=== PATIENT | female | born 1945 | race Caucasian/White ===

== ENCOUNTER → 2019-10-28 13:03 | Outpatient (CLI) | payer OTHER, SELFPAY ==
--- NOTE | ~2019-10-28 | MM_ITS ---
EXAMINATION: MM screening [facility] BI w dorothy HISTORY: Screening mammogram TECHNIQUE: Craniocaudal and mediolateral oblique 3-D tomosynthesis images were obtained and synthetic 2-D images were generated. CAD analysis was submitted and interpreted. COMPARISON: 08/06/2018, 07/16/2017, 08/01/2015 BREAST PARENCHYMAL COMPOSITION: There are scattered areas of fibroglandular density. FINDINGS: Scattered benign-appearing calcifications are present. There is no evidence of suspicious m ass, calcification, or architectural distortion to suggest malignancy in either breast. There has bee n no suspicious interval change. IMPRESSION: 1. No mammographic evidence of malignancy. 2. Recommend routine screening mammography in one year. BI-RADS Category 2: Benign finding(s). Reviewed, dictated and finalized at location A.
== END ==
PROVIDERS: Visit Provider Nurse Practitioner
DX: Z12.31 Encounter for screening mammogram for malignant neoplasm of breast (principal)
CPT/HCPCS: 77063; 77067

== ENCOUNTER → 2020-12-17 13:36 | Outpatient (CLI) | payer OTHER, SELFPAY ==
--- NOTE | ~2020-12-17 | MM_ITS ---
EXAMINATION: MM screening [facility] BI w dorothy HISTORY: Screening TECHNIQUE: Craniocaudal and mediolateral oblique 3-D tomosynthesis images were obtained and synthetic 2-D images were generated. CAD analysis was submitted and interpreted. COMPARISON: Comparison to multiple prior studies sequentially, with oldest reviewed study dated 10/17. BREAST PARENCHYMAL COMPOSITION: There are scattered areas of fibroglandular density. FINDINGS: There is no evidence of suspicious mass, calcification, or architectural distortion to sugg est malignancy in either breast. There has been no suspicious interval change. IMPRESSION: 1. No mammographic evidence of malignancy. 2. Recommend routine screening mammography in one year. BI-RADS Category 1: Negative Reviewed, dictated and finalized at location A.
== END ==
PROVIDERS: PCP Family Medicine; Visit Provider Nurse Practitioner Family
DX: Z12.31 Encounter for screening mammogram for malignant neoplasm of breast (principal)
CPT/HCPCS: 77063; 77067

== ENCOUNTER → 2021-07-12 10:41 | Outpatient (CLI) | payer MEDICARE, SELFPAY ==
--- NOTE | ~2021-07-12 | US_ITS ---
EXAMINATION: US pelvic complete w TV DATE: 07/12/2021 11:32 INDICATION: Other specified noninflammatory disorders of the vagina, concern for prolapse TECHNIQUE: Multiple transabdominal and endovaginal sonographic images of the pelvis were obtained. COMPARISON: None. FINDINGS: The uterus measures 3.6 x 1.8 x 2.8 cm. The endometrial complex measures 3 mm. The ovaries are not visualized however no adnexal abnormality is seen. There is a small amount of free fluid in t he pelvis. The technologist infectious disease reports intermittent prolapse of the cervix through the vagina . IMPRESSION: 1. Small amount of free fluid in the pelvis. 2. Clinical evidence of prolapse reported by the technologist infectious disease. Reviewed, dictated and finalized at location A.
== END ==
PROVIDERS: PCP Nurse Practitioner Family; Visit Provider Nurse Practitioner Family
DX: N89.8 Other specified noninflammatory disorders of vagina (principal)
CPT/HCPCS: 76830; 76856

== ENCOUNTER 2021-09-23 00:57 | Day surgery (SDC) | payer MEDICARE, SELFPAY ==
[2021-09-09 13:35] VITALS: BMI 22.7
[2021-09-23 10:36] VITALS: BP 120/79; PULSE 68; RESP 18; TEMP 36.1; O2SAT 99
[2021-09-23] MEDS: LACTATED RINGERS 1,000 ML 150 ML IV CONT (10:49)
--- NOTE | 2021-09-23 10:57 | WPDANESEPPF ---
Anes - Initial Pre Proc Eval Procedure: Operation Date: 09/23/21 12:30 Proposed Procedures p Colonoscopy - Hasmukh Macdonald MD Date/Time: 09/23/21 10:57 Surgeon: Hasmukh Macdonald MD Pre Op Diagnosis: MICHELLE Patient Data Age: 76 Gender: F Height: 1.68 m Weight: 59.9 kg Last Vital Signs Temp 36.1 C L 09/23/21 10:36 Pulse 68 09/23/21 10:36 Resp 18 09/23/21 10:36 BP 120/79 09/23/21 10:36 Pulse Ox 99 09/23/21 10:36 O2 Del Method Room Air 09/23/21 10:36 Allergies Allergy/AdvReac Type Severity Reaction Status Date / Time bacitracin Allergy Unknown Unknown Verified 09/23/21 10:33 latex Allergy Unknown Unknown Verified 09/23/21 10:33 polymyxin B Allergy Unknown Unknown Verified 09/23/21 10:33 Home Medications Medication Instructions Recorded Confirmed Type warfarin 3 mg tablet 3 mg PO WEEKLY #90 tabs 08/09/21 09/13/21 Rx warfarin 4 mg tablet 4 mg PO .6XW #90 tabs 08/09/21 09/13/21 Rx cilostazol 100 mg tablet 100 mg PO .QD #90 tabs 08/19/21 09/13/21 Rx gabapentin 100 mg capsule 100 mg PO DAILY PRN nerve pain #90 08/19/21 09/13/21 Rx caps pravastatin 80 mg tablet 80 mg PO DAILY #90 tabs 08/19/21 09/13/21 Rx oxyquinoline 0.025 %-sodium lauryl See Rx Instructions vaginal 08/24/21 09/13/21 Rx sulfate 0.01 % vaginal gel .COMPLEX #113.4 grams (Trimo-Tinajero Jelly) alprazolam 0.25 mg tablet 0.25 mg PO BID PRN anxiety #40 tabs 08/29/21 09/13/21 Rx citalopram 20 mg tablet 20 mg PO DAILY #90 tabs 09/06/21 09/13/21 Rx peg 400-propylene glycol (PF) 0.4 1 drp EACH EYE DAILY PRN Dry Eye(S) 09/09/21 09/09/21 History %-0.3 % eye drops in a dropperette (Systane (PF)) trazodone 50 mg tablet 50 - 100 mg PO QHS PRN insomnia 09/20/21 Rx #180 tabs Patient hx anesthesia problems: none Family hx anesthesia problems: none Results Review: All pre-operative results and documents have been reviewed as part of the pre-operative evaluation. [facility] Past Medical History Medical History Depression GERD without esophagitis History of cervical cancer HTN (hypertension), benign HZV (herpes zoster virus) post herpetic neuralgia Long-term (current) use of anticoagulants, INR goal 2.0-3.0 Mixed hyperlipidemia Parkinsons disease Personal history of other venous thrombosis and embolism Surgical History Surgical History H/O colonoscopy (~06/07/15) hx of polyps, Dr Duarte H/O tubal ligation History of left lower extremity amputation History of left lower limb amputation (~1996) Hx of bilateral cataract extraction Hx of hernia repair S/P breast biopsy, bilateral S/P dilation and curettage S/P removal of left ovary S/P wrist surgery Family History Family History Sibling Family history of thyroid disease Family history of cataracts Family history of diabetes mellitus in first degree relative Diabetes mellitus Depression Grandparent Family history of malignant neoplasm of cervix Cerebrovascular accident Mother Family history of Hodgkin's lymphoma Patient's mother is , Onset Age: 74 Family history of lymphoma Depression Father Family history of cardiovascular disease Social History Social History Social History: . Lives in her own home in [place]. One son who will make medical decisions for her when needed. She wishes to be DNR. She is working on paperwork for [employer]. Smoking status: Never smoker Alcohol intake: never Substance use: never Substance use type: does not use Living arrangements: alone Spiritual care concerns: No Anes - Eval Final PreProcedure Day of Procedure 09/23/21 10:57 Patient weight: normal Heart: regular rate and rhythm Lungs: clear to auscultation Airway: Mallampati scale class 1 Neurological:
[2021-09-23 11:20] LABS: INR 1.2; Prothrombin Time 14.4 Seconds (11.1-14.7)
--- NOTE | 2021-09-23 11:29 | PM.IMHP ---
H&P: HPI History of Present Illness Date/Time: 09/23/21 11:29 Chief Complaint: History of colon polyps. Narrative: This is a 76-year-old white female patient referred because of anemia. She does have a history of colon polyps removed by Dr. Hasmukh Duarte iin 2009 at which time adenomatous colon polyp was removed. Patient has a history of chronic anemia. She remains on warfarin. His a history of chronic hematuria followed by Urology. Patient denies any obvious blood in her stools. Recent laboratory testing revealed iron saturation of 11% ferritin elevated at 106. Patient referred for colonoscopy for screening purposes. Family history is noncontributory. Review of Systems Review of Systems: Review of systems noncontributory. 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) Hx of bilateral cataract extraction Hx of hernia repair S/P breast biopsy, bilateral S/P dilation and curettage S/P removal of left ovary S/P wrist surgery Family History Family History Sibling Family history of thyroid disease Family history of cataracts Family history of diabetes mellitus in first degree relative Diabetes mellitus Depression Grandparent Family history of malignant neoplasm of cervix Cerebrovascular accident Mother Family history of Hodgkin's lymphoma Patient's mother is , Onset Age: 74 Family history of lymphoma Depression Father Family history of cardiovascular disease Social History Social History Social History: . Lives in her own home in [place]. One son who will make medical decisions for her when needed. She wishes to be DNR. She is working on paperwork for [employer]. Smoking status: Never smoker Alcohol intake: never Substance use: never Substance use type: does not use Living arrangements: alone Spiritual care concerns: No Meds Home Medications and Allergies Home Medications Medication Instructions Recorded Confirmed Type warfarin 3 mg tablet 3 mg PO WEEKLY #90 tabs 08/09/21 09/13/21 Rx warfarin 4 mg tablet 4 mg PO .6XW #90 tabs 08/09/21 09/13/21 Rx cilostazol 100 mg tablet 100 mg PO .QD #90 tabs 08/19/21 09/13/21 Rx gabapentin 100 mg capsule 100 mg PO DAILY PRN nerve pain #90 08/19/21 09/13/21 Rx caps pravastatin 80 mg tablet 80 mg PO DAILY #90 tabs 08/19/21 09/13/21 Rx oxyquinoline 0.025 %-sodium lauryl See Rx Instructions vaginal 08/24/21 09/13/21 Rx sulfate 0.01 % vaginal gel .COMPLEX #113.4 grams (Trimo-Tinajero Jelly) alprazolam 0.25 mg tablet 0.25 mg PO BID PRN anxiety #40 tabs 08/29/21 09/13/21 Rx citalopram 20 mg tablet 20 mg PO DAILY #90 tabs 09/06/21 09/13/21 Rx peg 400-propylene glycol (PF) 0.4 1 drp EACH EYE DAILY PRN Dry Eye(S) 09/09/21 09/09/21 History %-0.3 % eye drops in a dropperette (Systane (PF)) trazodone 50 mg tablet 50 - 100 mg PO QHS PRN insomnia 09/20/21 Rx #180 tabs Allergies Allergy/AdvReac Type Severity Reaction Status Date / Time bacitracin Allergy Unknown Unknown Verified 09/23/21 10:33 latex Allergy Unknown Unknown Verified 09/23/21 10:33 polymyxin B Allergy Unknown Unknown Verified 09/23/21 10:33 Vital Signs Vital Signs - 24 hr 09/23/21 10:36 Temperature 97.0 F L Pulse Rate 68 Respirator
[2021-09-23 11:58] VITALS: BP 97/52; PULSE 68; RESP 17; O2SAT 97
[2021-09-23 12:08] VITALS: BP 99/57; PULSE 68; RESP 16; O2SAT 100
[2021-09-23 12:18] VITALS: BP 123/61; PULSE 57; RESP 13; O2SAT 100
== END 2021-09-23 12:54 | disposition home or self-care (01) ==
PROVIDERS: PCP Internal Medicine Hematology & Oncology; Visit Provider Internal Medicine Gastroenterology
PROC: 0DJD8ZZ Inspection of Lower Intestinal Tract, Via Natural or Artificial Opening Endoscopic (ICD-10-PCS; CPT 45378; principal; 2021-09-23 12:30)
DX: D50.0 Iron deficiency anemia secondary to blood loss (chronic) (principal); K57.32 Diverticulitis of large intestine without perforation or abscess without bleeding; K64.8 Other hemorrhoids; D12.2 Benign neoplasm of ascending colon; F32.A Depression, unspecified; K21.9 Gastro-esophageal reflux disease without esophagitis; Z85.41 Personal history of malignant neoplasm of cervix uteri; I10 Essential (primary) hypertension; G20 Parkinson's disease; Z79.01 Long term (current) use of anticoagulants; B02.8 Zoster with other complications; Z86.718 Personal history of other venous thrombosis and embolism
CPT/HCPCS: 45385; 36415; 85610; 88305; J2704; J7120

== ENCOUNTER → 2021-09-26 14:18 | Outpatient (CLI) | payer MEDICARE, SELFPAY ==
--- NOTE | ~2021-09-26 | CT_ITS ---
EXAMINATION: CT soft tiss nk chst ab pel w DATE: 09/26/2021 15:17 INDICATION: Lymphadenopathy TECHNIQUE: Computed tomography (CT) of the neck, chest, abdomen, and pelvis was performed with 100 mL Omnipaque-300 intravenous contrast. Automated exposure control and iterative reconstruction techniqu e were employed. The dose-length product was 1233.23 mGy-cm. COMPARISON: CT abdomen and pelvis dated 08/17 FINDINGS: NECK CT: The nodular goiter with multiple hypoenhancing nodules measuring up to 1.3 cm in maximal diameter in both the left and right thyroid lobes. Submandibular and parotid glands are normal and symmetric. Ath erosclerotic plaque at the bilateral carotid bulbs with 40% stenosis relative to normal luminal diame ter (NASCET criteria) on the right and 0% stenosis on the left. There are scattered normal-sized lymp h nodes in the neck, no lymphadenopathy. No masses identified. Changes of bilateral intraocular lens replacement. Visualized sinuses and mastoid aircells are well aerated. Airway is unremarkable. Moder ate cervical spondylosis. CHEST CT: Minimal atelectasis in the dependent lungs. Calcified right middle lobe nodule consistent with old gr anulomatous disease. No other suspicious pulmonary nodules, pneumonia, pulmonary edema or pleural eff usion. Heart size is normal. Atherosclerotic coronary artery calcification. No pericardial effusion. Thoracic aorta is normal in caliber with no dissection. No pathologically enlarged thoracic lymphaden opathy. Small amount of intrathoracic ascites along side a moderate-sized sliding-type hiatal hernia. ABDOMEN/PELVIS CT: 7 mm cyst in the left hepatic lobe. Multiple scattered small hepatic and splenic calcific lesions con sistent with old granulomatous disease. New marked splenomegaly with spleen measuring 17.2 cm maximal craniocaudal length and 14.6 x 8.2 cm in maximal transaxial dimensions. There are 3 peripheral geogr aphic regions of markedly decreased/absent enhancement along the posterolateral margin of the spleen suspicious for splenic infarcts. Pancreas, bilateral adrenal glands and kidneys are normal. There is moderate colonic diverticulosis with a sigmoid predominance. There is no adjacent inflammatory méndez e to suggest diverticulitis. Small bowel and appendix are normal. Partially decompressed bladder is normal. Pessary within the vaginal vault. The uterus is not identified and has likely been surgically resected. Small amount of ascites predominantly in the deep pelvis. No pathologically enlarged abdom inal or pelvic lymphadenopathy. Patent aortobifemoral bypass graft. 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 This extends into the visualized proximal left superficial fem oral artery which is also thrombosed. The left profunda femoral artery reconstitutes via collaterals. IMPRESSION: 1. No pathologically enlarged lymphadenopathy in the neck, chest, abdomen or pelvis. 2. Marked splenomegaly which is new since prior study with 3 peripheral geographic regions of markedl y decreased, potentially absent enhancement suspicious for splenic infarcts. 3. Moderate-sized sliding-type hiatal hernia. 4. Aortobifemoral bypass graft. 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 The left profunda femoral artery is re constituted via collaterals. 5. Prominent sigmoid diverticulosis. 6. Small amount of ascites in the pelvis. 7. Multinodular goiter. Reviewed, dictated and finalized at location A. IMPRESS
[2021-09-26 14:45] LABS: Estimated Glomerular Filt Rate > 60
== END ==
PROVIDERS: PCP Nurse Practitioner Family; Visit Provider Internal Medicine Hematology & Oncology
DX: R59.1 Generalized enlarged lymph nodes (principal); E04.2 Nontoxic multinodular goiter; R18.8 Other ascites; K57.30 Diverticulosis of large intestine without perforation or abscess without bleeding; K44.9 Diaphragmatic hernia without obstruction or gangrene; R16.0 Hepatomegaly, not elsewhere classified
CPT/HCPCS: 70491; 71260; 74177; Q9967

== ENCOUNTER → 2021-10-07 13:10 | Outpatient (CLI) | payer MEDICARE, SELFPAY ==
--- NOTE | ~2021-10-07 | DEXA_ITS ---
Bone Density Report Name: ESTRELLA MONTANEZ Age: 76 Sex: Female Ethnicity: White Date of : 1945 Indication: postmenopausal; screening for osteoporosis; height loss; Referring Provider: Nadine Rojas Study: Bone densitometry was performed. Exam Date: October 07, 2021 Accession number: [id number] Bone Density: Region BMD T-score Z-score Classification AP Spine (L1, L3, L4) 1.219 1.5 4.0 Normal Femoral Neck (Left) 0.695 -1.4 0.8 Osteopenia Total Hip (Left) 0.878 -0.5 1.3 Normal Femoral Neck (Right) 0.743 -1.0 1.2 Normal Total Hip (Right) 0.925 -0.1 1.7 Normal Total Hip Mean 0.902 -0.3 1.5 Normal World Health Organization criteria for BMD impression classify patients as: Normal (T-score at or above -1.0), Osteopenia (T-score between -1.0 and -2.5), or Osteoporosis (T-score at or below -2.5). 10-year Fracture Risk(1): Major Osteoporotic Fracture 11% Hip Fracture 2.3% Reported Risk Factors: [place] (), Neck BMD=0.695, BMI=22.7 (1) FRAX(R) Version 3.08. Fracture probability calculated for an untreated patient. Fracture probability may be lower if the patient has received treatment. Previous Exams: Region Exam Age BMD T-score BMD Change BMD Change Date g/cm2 vs Baseline vs Previous AP Spine(L1, L3, L4) 10/07/2021 76 1.219 1.5 -0.027* -0.045* 12/24/2018 73 1.264 1.9 0.017 -0.018 12/02/2015 70 1.282 2.1 0.035* 0.024* 09/14/2012 67 1.258 1.9 0.011 0.011 07/30/2010 65 1.247 1.8 Total Hip(Left) 10/07/2021 76 0.878 -0.5 0.036* -0.011 12/24/2018 73 0.889 -0.4 0.048* -0.004 12/02/2015 70 0.893 -0.4 0.052* 0.004 09/14/2012 67 0.890 -0.4 0.048* 0.048* 07/30/2010 65 0.842 -0.8 Total Hip(Right) 10/07/2021 76 0.925 -0.1 -0.016 -0.016 12/24/2018 73 0.942 0.0 0.001 -0.039* 12/02/2015 70 0.981 0.3 0.040* 0.018 09/14/2012 67 0.963 0.2 0.022 0.022 07/30/2010 65 0.941 0.0 *Denotes significance at 95% confidence level, LSC for AP Spine = 0.022 g/cm2, LSC for Total Hip = 0.027 g/cm2 Clinical Information Provided by Patient: Has used the following medications: Vitamin D Patient maximum height was 66.0 Menopause Age: 40 No regular weight bearing exercise Drinks caffeinated beverages Onset of menses a
== END ==
PROVIDERS: PCP Nurse Practitioner Family; Visit Provider Nurse Practitioner Family
DX: Z78.0 Asymptomatic menopausal state (principal); M85.852 Other specified disorders of bone density and structure, left thigh
CPT/HCPCS: 77080

== ENCOUNTER 2021-10-25 01:23 | Day surgery (SDC) | payer MEDICARE, SELFPAY ==
[2021-10-24 13:42] VITALS: BMI 22.0
--- NOTE | ~2021-10-25 | BM_ITS ---
EXAMINATION: CCL bone marrow asp w bx diag DATE: 10/25/2021 10:22 INDICATION: Pancytopenia. TECHNIQUE: A time-out was performed to verify the patient's name, date of , and procedure to b e performed. The procedure including the risks, benefits, and alternatives was discussed with the pat ient. Risks discussed included bleeding and infection. The patient understood the risks and agreed to proceed. The skin overlying the left ilium was prepped and draped in usual sterile fashion. Anesth etic was administered with 1% lidocaine subcutaneously. Moderate sedation was achieved with 1 mg Vers ed IV and 50 mcg fentanyl IV. An 11 gauge needle was inserted into the ilium with fluoroscopic arnoldo nce. Bone marrow was aspirated. An 8 gauge needle was then inserted into the ilium with fluoroscopic guidance. A core bone marrow biopsy was obtained. There were no immediate complications. Fluoroscopy exposure time was 0.0 minutes. The total number of images was 12. FINDINGS: Real-time fluoroscopy demonstrates a marker overlying the left posterior superior iliac spi ne. IMPRESSION: 1. Fluoro-guided bone marrow aspiration. 2. Fluoro-guided bone marrow core biopsy. Reviewed, dictated and finalized at location A.
[2021-10-25 08:09] VITALS: BP 150/82; PULSE 68; RESP 18; TEMP 36.4; O2SAT 99; BMI 21.0
[2021-10-25 08:16] LABS: Basophils Percent Auto 0.7 % (0.2-1.2); Eosinophils Absolute Auto 0.1 K/mm3 (0-0.3); Eosinophils Percent Auto 2.6 % (0-4.4); Hematocrit 35.3 % (37.0-47.0); Hemoglobin 11.5 g/dL (12.0-15.0); Immature Granulocyte Absolute 0.01 K/mm3 (0.00-0.031); Immature Granulocyte Percent A 0.4 % (0-0.5); Immature Platelet Fraction Pct 1.6 % (0.9-11.2); Lymphocytes Absolute Auto 0.72 K/mm3 (0.9-3.2); Lymphocytes Percent Auto 26.6 % (18.3-44.2); Mean Corpuscular HGB Conc 32.6 g/dl (32-36); Mean Corpuscular Hemoglobin 32.1 pg (26-34); Mean Corpuscular Volume 98.6 fl (80-100); Monocytes Absolute Auto 0.2 K/mm3 (0.1-0.6); Monocytes Percent Auto 8.5 % (2.6-8.5); Neutrophils Absolute Auto 1.7 K/mm3 (1.3-6.7); Neutrophils Percent Auto 61.2 % (45.5-73.1); Platelet Count Result 88 k/mm3 (150-375); Red Blood Count 3.58 M/mm3 (4.2-5.4); Red Cell Distribution Width 15.8 % (11.5-14.5); White Blood Count 2.7 K/mm3 (4.5-10.0)
[2021-10-25 08:25] LABS: INR 1.1
--- NOTE | 2021-10-25 09:03 | WPDMODSED ---
Moderate Sedation Note-Pt Data Patient Data Diagnosis: pancytopenia Present Complaint: pancytopenia Procedure to be performed/Plan: fluoro-guided bone marrow biopsy of ilium Allergies Allergy/AdvReac Type Severity Reaction Status Date / Time latex Allergy Unknown Unknown Verified 10/25/21 08:49 Home Medications Medication Instructions Recorded Confirmed Type gabapentin 100 mg capsule 100 mg PO DAILY PRN nerve pain #90 08/19/21 10/24/21 Rx caps citalopram 20 mg tablet 20 mg PO DAILY #90 tabs 09/06/21 10/24/21 Rx trazodone 50 mg tablet 50 - 100 mg PO QHS PRN insomnia 09/20/21 10/24/21 Rx #180 tabs cilostazol 100 mg tablet 100 mg PO .QD #90 tabs 10/03/21 10/24/21 Rx pravastatin 80 mg tablet 80 mg PO DAILY #90 tabs 10/03/21 10/24/21 Rx alprazolam 0.25 mg tablet 0.25 mg PO BID PRN anxiety #40 tabs 10/04/21 10/24/21 Rx cholecalciferol (vitamin D3) 50 50 mcg PO DAILY #1 cap 10/11/21 10/24/21 Rx mcg (2,000 unit) capsule warfarin 5 mg tablet 5 mg PO DAILY #5 tabs 10/14/21 10/24/21 Rx ferrous gluconate 324 mg (36 mg 324 mg PO DAILY 10/24/21 10/24/21 History iron) tablet peg 400-propylene glycol 0.4 %-0.3 1 drp EACH EYE DAILY PRN Dry Eyes 10/24/21 10/24/21 History % eye drops (Systane (propylene glycol)) Sedation/Anesthesia: No previous sedation/anesthesia problems (including family history). [facility] Past Medical History Medical History Depression GERD without esophagitis History of cervical cancer HTN (hypertension), benign HZV (herpes zoster virus) post herpetic neuralgia Long-term (current) use of anticoagulants, INR goal 2.0-3.0 Mixed hyperlipidemia Parkinsons disease Personal history of other venous thrombosis and embolism Surgical History Surgical History H/O colonoscopy (~06/07/15) hx of polyps, Dr Duarte H/O tubal ligation History of left lower extremity amputation History of left lower limb amputation (~1996) Hx of bilateral cataract extraction Hx of hernia repair S/P breast biopsy, bilateral S/P dilation and curettage S/P removal of left ovary S/P wrist surgery Family History Family History Sibling Family history of thyroid disease Family history of cataracts Family history of diabetes mellitus in first degree relative Diabetes mellitus Depression Grandparent Family history of malignant neoplasm of cervix Cerebrovascular accident Mother Family history of Hodgkin's lymphoma Patient's mother is , Onset Age: 74 Family history of lymphoma Depression Father Family history of cardiovascular disease Social History Social History Social History: . Lives in her own home in [place]. One son who will make medical decisions for her when needed. She wishes to be DNR. She is working on paperwork for [employer]. Smoking status: Never smoker Alcohol intake: never Substance use: never Substance use type: does not use Spiritual care concerns: No Mod Sed Physical Exam Physical Exam Pre Procedural Exam: Normal: Lungs, Heart Rate, Heart Rhythm and Abdomen Hours since solid foods: 12 Hours since liquid intake: 12 Mallampati Classification: class 1 Internal Medicine - PN: Obj Da Vital Signs Vital Signs: Vital Signs - 24 hr 10/25/21 08:09 Temperature 36.4 C Pulse Rate 68 Respiratory Rate 18 Blood Pressure 150/82 H Pulse Oximetry 99 Oxygen Delivery Room Air Labs CBC & Chem 7: 10/25/21 08:03 Labs: Laboratory Results - last 24 hr 10/25/21 10/25/21 08:03 08:03 WBC 2.7 L RBC 3.58 L Hgb 11.5 L Hct 35.3 L MCV 98.6 MCH 32.1 MCHC 32.6 RDW 15.8 H Plt Count 88 L MPV 9.0 Immature Gran % (Auto) 0.4 Neut % (Auto) 61.2 Lymph % (Auto) 26.6 [place] % (Auto) 8.5 Eos % (Auto)
[2021-10-25 10:05] VITALS: BP 140/58; PULSE 59; RESP 18; TEMP 36.8; O2SAT 99
[2021-10-25 10:20] VITALS: BP 119/77; PULSE 52; RESP 16; O2SAT 100
[2021-10-25 10:35] VITALS: BP 127/57; PULSE 56; RESP 16; O2SAT 100
[2021-10-25 10:50] VITALS: BP 129/54; PULSE 56; RESP 16; O2SAT 100
[2021-10-25 11:15] VITALS: BP 136/61; PULSE 61; RESP 16; O2SAT 100
== END 2021-10-25 11:45 | disposition home or self-care (01) ==
PROVIDERS: PCP Nurse Practitioner Family; Referring Provider Internal Medicine Hematology & Oncology; Visit Provider Radiology Diagnostic Radiology
DX: D61.818 Other pancytopenia (principal)
CPT/HCPCS: 36415; 38222; 85025; 85055; 85610; 88184; 88185; 88305; 88311; 88313; 88341; 88342; 88360; J1642; J2250; J3010; J7040

== ENCOUNTER 2022-01-12 12:09 | Outpatient (CLI) | payer MEDICARE, SELFPAY ==
--- NOTE | ~2022-01-12 | PE_ITS ---
EXAMINATION: PET skull to mid thigh DATE: 01/12/2022 14:42 INDICATION: Non-Hodgkin's lymphoma of spleen. TECHNIQUE: Blood glucose level was 95 mg/dL. 10.149 mCi of 18-fluorodeoxyglucose (18-FDG) was adminis tered i.v. Low dose computed tomography (CT) images were acquired from the base of the brain to the p roximal thighs for attenuation correction and anatomic localization. Automated exposure control was e mployed. Dose-length product (DLP) was 396 mGy-cm. Positron emission tomography (PET) images were acq uired in the same distribution. COMPARISON: CT 09/26/2021 FINDINGS: Head/neck: There is increased activity in the pharynx, oral cavity, major salivary glands, and glotti s without abnormal signal CT correlate, likely physiologic. There are no pathologically enlarged lymp h nodes. Chest: There are nodules in the thyroid measuring up to 14 mm, likely not clinically significant. The re is mild scarring at the lung apices. A calcified right lung nodule is consistent with old granulom atous disease. No pleural effusion. The heart size is normal. No pericardial effusion. There are garrett nary artery calcifications. There is a moderate-sized sliding hiatal hernia. There is increased activ ity in the esophagus, which may be esophagitis. There is increased activity in bone marrow without ab normal CT correlate, likely bone marrow stimulation. Abdomen/pelvis/proximal thighs: Calcifications in the liver and spleen are consistent with old granul omatous disease. There is splenomegaly measuring 15.1 cm, decreased from 16.8 cm on 09/26/21. Activity in the spleen is equal to that of liver with maximum SUV of 3.5. The gallbladder, pancreas, adrenal glands, and kidneys are normal. There are changes of aortobifemoral bypass grafting. There is a stabl e 2.7 cm aneurysm at the left common femoral artery anastomosis. A pessary is noted. There is diverti culosis of the colon without evidence of diverticulitis. The appendix is normal. There are no patholo gically enlarged lymph nodes. There is no free intraperitoneal fluid. There is increased activity in bone marrow without abnormal CT correlate, likely bone marrow stimulation. IMPRESSION: 1. Moderate splenomegaly with mild improvement. 2. No lymphadenopathy. Reviewed, dictated and finalized at location A. TING CLERK
[2022-01-12 12:37] LABS: Glucose Point of Care 95 mg/dl (65-105)
== END 2022-01-12 12:10 | disposition home or self-care (01) ==
LOC: ANHIMG 12:11
PROVIDERS: PCP Nurse Practitioner Family; Visit Provider Internal Medicine Hematology & Oncology
DX: C85.97 Non-Hodgkin lymphoma, unspecified, spleen (principal)
CPT/HCPCS: 78815; A9552

== ENCOUNTER 2022-05-16 10:46 | Outpatient (CLI) | payer MEDICARE, SELFPAY ==
[2022-05-16 19:26] LABS: Alanine Aminotransferase 21 U/L (6-35); Albumin Level 3.9 g/dL (3.5-5.1); Alkaline Phosphatase 64 U/L (38-126); Anion Gap 1 mmol/L (8-16); Aspartate Amino Transferase 42 U/L (14-36); Bilirubin,Total 0.6 mg/dL (0.2-1.3); Blood Urea Nitrogen 22 mg/dL (7-17); Calcium 9.1 mg/dL (8.4-10.2); Carbon Dioxide 31 mmol/L (22-30); Chloride 103 mmol/L (98-107); Cholesterol 160 mg/dL (0-200); Estimated Glomerular Filt Rate > 60; Glucose 102 mg/dL (65-110); HDL Direct 68 mg/dL; Sodium 135 mmol/L (137-145); Triglycerides 69 mg/dL (<150)
[2022-05-16 19:27] LABS: Basophils Percent Auto 0.3 % (0.2-1.2); Eosinophils Absolute Auto 0.1 K/mm3 (0-0.3); Eosinophils Percent Auto 1.8 % (0-4.4); Hemoglobin 12.4 g/dL (12.0-15.0); Immature Granulocyte Absolute 0.01 K/mm3 (0.00-0.031); Immature Granulocyte Percent A 0.3 % (0-0.5); Immature Platelet Fraction Pct 1.7 % (0.9-11.2); Lymphocytes Absolute Auto 1.16 K/mm3 (0.9-3.2); Lymphocytes Percent Auto 30.1 % (18.3-44.2); Mean Corpuscular HGB Conc 32.6 g/dl (32-36); Mean Corpuscular Volume 101.1 fl (80-100); Mean Platelet Volume 9.1 fl (7.4-10.4); Monocytes Absolute Auto 0.4 K/mm3 (0.1-0.6); Monocytes Percent Auto 9.3 % (2.6-8.5); Neutrophils Absolute Auto 2.3 K/mm3 (1.3-6.7); Neutrophils Percent Auto 58.2 % (45.5-73.1); Platelet Count Result 111 k/mm3 (150-375); Red Blood Count 3.76 M/mm3 (4.2-5.4); Red Cell Distribution Width 14.6 % (11.5-14.5); White Blood Count 3.9 K/mm3 (4.5-10.0)
[2022-05-16 19:38] LABS: LDL Cholesterol Direct 62 mg/dL
[2022-05-16 20:24] LABS: Vitamin D 25 Hydroxy 89.9 ng/mL
== END 2022-05-16 10:47 | disposition home or self-care (01) ==
LOC: ANHGOSHLAB 10:47
PROVIDERS: PCP Nurse Practitioner Family; Visit Provider Nurse Practitioner Family
DX: E55.9 Vitamin D deficiency, unspecified (principal); E78.2 Mixed hyperlipidemia
CPT/HCPCS: 36415; 80053; 80061; 82306; 84443; 85025; 85055

== ENCOUNTER → 2022-08-16 10:04 | Outpatient (CLI) | payer MEDICARE, SELFPAY ==
--- NOTE | ~2022-08-16 | US_ITS ---
EXAMINATION: US pelvic complete DATE: 08/17/2022 12:01 INDICATION: Incomplete uterovaginal prolapse Comparison:No prior studies for comparison. TECHNIQUE: Multiple transabdominal sonographic images of the pelvis performed. FINDINGS: The uterus measures 5.8 x 2.7 x 3.4 cm. The endometrial complex measures 6 mm. The ovaries are not visualized. Left ovary is surgically absent. There is no free fluid in the pelvis. There are no abnormal masses seen on either side. IMPRESSION: 1. Thickened endomtrial complex. The differential diagnosis includes endometrial hyperplasia, polyp a nd carcinoma. Biopsy is recommended. Reviewed, dictated and finalized at location L. IMPRESSION: 1. Thickened endomtrial complex. The differential diagnosis includes endometria l hyperplasia, polyp and carcinoma. Biopsy is recommended.
== END ==
PROVIDERS: PCP Nurse Practitioner Family; Visit Provider Nurse Practitioner Family
DX: N81.2 Incomplete uterovaginal prolapse (principal)
CPT/HCPCS: 76856

== ENCOUNTER → 2022-08-18 13:21 | Outpatient (CLI) | payer MEDICARE, SELFPAY ==
--- NOTE | ~2022-08-18 | MM_ITS ---
EXAMINATION: MM screening oleksandr BI w dorothy HISTORY: Screening mammogram TECHNIQUE: Craniocaudal and mediolateral oblique 3-D tomosynthesis images were obtained and synthetic 2-D images were generated. CAD analysis was submitted and interpreted. COMPARISON: 12/17/2020, 10/28/2019, 08/2018 bilateral screening mammogram examinations BREAST PARENCHYMAL COMPOSITION: There are scattered areas of fibroglandular density. FINDINGS: Biopsy marker is noted on the right; history of benign right breast biopsies.. Scattered bi lateral benign calcifications. There is no evidence of suspicious mass, calcification, or architectur al distortion to suggest malignancy in either breast. There has been no suspicious interval change. IMPRESSION: 1. No mammographic evidence of malignancy. 2. Recommend routine screening mammography in one year. BI-RADS Category 2: Benign finding(s). Reviewed, dictated and finalized at location A.
== END ==
PROVIDERS: PCP Family Medicine; Visit Provider Nurse Practitioner Family
DX: Z12.31 Encounter for screening mammogram for malignant neoplasm of breast (principal)
CPT/HCPCS: 77063; 77067

== ENCOUNTER 2022-12-08 09:53 | Outpatient (CLI) | payer MEDICARE, SELFPAY ==
--- NOTE | 2022-12-08 11:12 | ECG_ITS ---
Measurements Intervals [place] Rate: 69 P: 73 DC: 124 QRS: 26 QRSD: 90 T: 21 QT: 400 QTc: 429 Interpretive Statements SINUS RHYTHM LOW QRS VOLTAGE IN PRECORDIAL LEADS [QRS DEFLECTION < 1.0 mV IN CHEST LEADS] POSSIBLE RIGHT VENTRICULAR CONDUCTION DELAY [RSR (QR) IN V1/V2] NO PREVIOUS ECG AVAILABLE FOR COMPARISON Electronically Signed On 12-08-2022 14:30:45 CDT by Miranda Lobo M.D.
[2022-12-08 11:35] LABS: Basophils Percent Auto 0.6 % (0.2-1.2); Eosinophils Percent Auto 0.8 % (0-4.4); Hematocrit 32.4 % (37.0-47.0); Hemoglobin 10.2 g/dL (12.0-15.0); Immature Granulocyte Absolute 0.01 K/mm3 (0.00-0.031); Immature Granulocyte Percent A 0.3 % (0-0.5); Immature Platelet Fraction Pct 1.9 % (0.9-11.2); Lymphocytes Absolute Auto 0.96 K/mm3 (0.9-3.2); Lymphocytes Percent Auto 26.6 % (18.3-44.2); Mean Corpuscular HGB Conc 31.5 g/dl (32-36); Mean Corpuscular Hemoglobin 30.7 pg (26-34); Mean Corpuscular Volume 97.6 fl (80-100); Mean Platelet Volume 9.2 fl (7.4-10.4); Monocytes Absolute Auto 0.3 K/mm3 (0.1-0.6); Monocytes Percent Auto 9.1 % (2.6-8.5); Neutrophils Absolute Auto 2.3 K/mm3 (1.3-6.7); Neutrophils Percent Auto 62.6 % (45.5-73.1); Platelet Count Result 82 k/mm3 (150-375); Red Blood Count 3.32 M/mm3 (4.2-5.4); Red Cell Distribution Width 15.9 % (11.5-14.5); White Blood Count 3.6 K/mm3 (4.5-10.0)
[2022-12-08 12:01] LABS: INR 1.2; Prothrombin Time 15.4 Seconds (11.1-14.7)
== END 2022-12-08 09:54 | disposition home or self-care (01) ==
LOC: ANHSURGERY 09:57
PROVIDERS: PCP Family Medicine; Visit Provider Urology
DX: N81.2 Incomplete uterovaginal prolapse (principal); E78.2 Mixed hyperlipidemia; Z01.818 Encounter for other preprocedural examination; I45.9 Conduction disorder, unspecified
CPT/HCPCS: 36415; 85025; 85055; 85610; 85730; 86850; 86900; 86901; 93005

== ENCOUNTER 2022-12-11 01:09 | Day surgery (SDC) | payer MEDICARE, SELFPAY ==
[2022-12-08 10:06] VITALS: BMI 27.1
--- NOTE | 2022-12-08 10:44 | PC.NURSE ---
Report to the Outpatient Waiting Room, entrance under the green pavilion located off [facility], at time _1030 on date 12/11/22 . Planned Procedure Time: __1230 . Time changes happen often and if your time is changed the preop area will call you the afternoon before. - You and your visitor will be asked to self-screen and do not enter if you have any COVID symptoms. - A mask is optional within the hospital at this time. Patients may have clear liquids (water, carbonated beverages, clear teas, apple juice) until 3 hours prior to surgery with a maximum of 20 ounces. - No food from midnight until time of surgery - Infants may have breast milk until 4 hours before surgery, infant formula 6 hours prior to surgery. - Children will be allowed to drink immediately following surgery. If applicable, please bring a bottle or sippy cup to assist with drinking. Juice, water, soda, and popsicles are readily available. For infants on formula, please bring formula the day of surgery. Pacifiers are allowed. Take the following medications with a SIP of water the morning of surgery: _BUSPIRONE,CITALOPRAM,GABAPENTIN,NITROFURANTOIN DO NOT STOP ANY OF YOUR OTHER PRESCRIPTION MEDICATIONS PRIOR TO SURGERY ?EXCEPT THE FOLLOWING Medications to discontinue per physician PT STATES WARFARIN HOLD 7 DAYS PRE OP PER DR RUEDA .LAST DOSE 12/03/22. ALL VITAMINS AND SUPPLEMENTS 3 DAYS PRE OP.LAST DOSE 12/07/22 Please no make-up, nail tanzanian, hairspray, perfume, deodorant, or body powder the day of surgery. No jewelry (including any body piercings) or valuables the day of surgery, leave them at home. Please take a shower or bath the night before, or the morning of, surgery with an antibacterial soap. Wear comfortable, loose fitting clothing. Children are encouraged to wear pajamas. - Jewelry must be removed prior to entering the operating room. Rings and piercings that are not removed may be cut off. - The hospital will not accept responsibility for valuables. - Please leave all valuables, including medications, at home the day of surgery. If you are going home after surgery, a licensed drop hammer pile driver operator must drive you home. - NO public transportation without another adult if you receive anesthesia. - We recommend that an adult stay with you for 24 hours following discharge. - We also recommend that you do not drive, make important decision, drink alcoholic beverages, or take any drugs that were not prescribed by your health care provider for at least 24 hours after your discharge time. For Pediatric surgeries, we recommend two adults accompany the child home. Follow any additional instructions given to you from your surgeon. If you or anyone in your household have experienced Covid symptoms in the past week, please notify your surgeon or the nurse liaison at the phone number below for possible testing. VERBAL AND WRITTEN instructions given to __PATIENT and asked if any additional questions and then verbalized understanding. Patient advised to call surgeon office or pre surgery nurse liaison [phone] if any additional questions.
[2022-12-08 11:04] VITALS: BP 125/60; PULSE 71; RESP 18; TEMP 36.7; O2SAT 97
--- NOTE | 2022-12-10 18:58 | PM.IMHP ---
H&P: HPI History of Present Illness Date/Time: 12/10/22 18:58 Chief Complaint: POP/ISD Narrative: POP. no longer interested in pessary. LEENA noted on urodynamcs Review of Systems Review of Systems: All systems reviewed & are unremarkable except as noted in HPI and below PMFSH Past Medical History Medical History Depression GERD without esophagitis History of cervical cancer HTN (hypertension), benign HZV (herpes zoster virus) post herpetic neuralgia Long-term (current) use of anticoagulants, INR goal 2.0-3.0 Mixed hyperlipidemia Parkinsons disease Personal history of other venous thrombosis and embolism Surgical History Surgical History H/O colonoscopy (~06/07/15) hx of polyps, Dr Duarte H/O tubal ligation History of left lower extremity amputation History of left lower limb amputation (~1996) Hx of bilateral cataract extraction Hx of hernia repair S/P breast biopsy, bilateral S/P dilation and curettage S/P removal of left ovary S/P wrist surgery Family History Family History Sibling Family history of thyroid disease Family history of cataracts Family history of diabetes mellitus in first degree relative Diabetes mellitus Depression Grandparent Family history of malignant neoplasm of cervix Cerebrovascular accident Mother Family history of Hodgkin's lymphoma Patient's mother is , Onset Age: 74 Family history of lymphoma Depression Father Family history of cardiovascular disease Social History Social History Social History: . Lives in her own home in [place]. One son who will make medical decisions for her when needed. She wishes to be DNR. She is working on paperwork for [employer]. Smoking packs per day: 0.5 Smoking cigarettes per day: 10.0 Years smoked: 10 Smoking pack-years: 5.00 Smoking status: Former smoker Tobacco type: cigarettes Smoking end date: 03/05/97 Alcohol intake: never Substance use: never Substance use type: does not use Lack of Transportation: No Lack of Food: Never True Current Housing: I Have Housing Concerned About Future Housing: No Difficulty Paying Gas/Electric Bills: YES Difficulty Paying for Meds: No Currently Unemployed: No Education: Trade/Vocational Certificate Difficulty w/ Childcare or Family Care: No Living arrangements: alone Occupation/Education: retired Gender identity (if verbalized by the patient): Female Sexual Orientation (if Verbalized by the Patient): Straight or Heterosexual Spiritual care concerns: No Meds Home Medications and Allergies Home Medications Medication Instructions Recorded Confirmed Type cholecalciferol (vitamin D3) 50 50 mcg PO DAILY #1 cap 10/11/21 12/08/22 Rx mcg (2,000 unit) capsule ferrous gluconate 324 mg (36 mg 324 mg PO DAILY 10/24/21 12/08/22 History iron) tablet buspirone 5 mg tablet See Rx Instructions PO BID PRN 08/21/22 12/08/22 Rx anxiety #180 tabs trazodone 50 mg tablet 50 - 100 mg PO QHS PRN insomnia 08/21/22 12/08/22 Rx #180 tabs citalopram 20 mg tablet 20 mg PO DAILY #90 tabs 11/13/22 12/08/22 Rx pravastatin 80 mg tablet 80 mg PO DAILY #90 tabs 11/28/22 12/08/22 Rx cilostazol 100 mg tablet 100 mg PO DAILY 12/08/22 12/08/22 History cyanocobalamin (vitamin B-12) 1,000 mcg PO EVERY OTHER DAY 12/08/22 12/08/22 History 1,000 mcg tablet gabapentin 100 mg capsule 100 mg PO TID PRN nerve pain 12/08/22 12/08/22 History nitrofurantoin 100 mg PO BID 12/08/22 12/08/22 History monohydrate/macrocrystals 100 mg capsule peg 400-propylene glycol (PF) 0.4 1 drp EACH EYE BID DRY EYES 12/08/22 12/08/22 History %-0.3 % eye drops in a dropperette (Systane (PF)) warfarin 1 mg tablet 6 mg PO .every other day
[2022-12-11] VITALS (9 sets, daily range): BP systolic 122–147; BP diastolic 44–79; PULSE 61–79; RESP 12–20; TEMP 36.4–36.6; O2SAT 95–100
--- NOTE | 2022-12-11 07:16 | WPDHPUPDATE1 ---
History and Physical Update Update Date/Time: 12/11/22 07:16 History and Physical has been reviewed, including an updated exam of the patient. There are NO changes in the patient's condition. Risks, benefits, and alternatives have been discussed and questions answered. Patient agrees to proceed with procedure.
[2022-12-11] MEDS: LACTATED RINGERS 1,000 ML 30 ML IV CONT ×2 (10:30→13:04)
--- NOTE | 2022-12-11 10:34 | WPDHPUPDATE1 ---
History and Physical Update Update Date/Time: 12/11/22 10:34 History and Physical has been reviewed, including an updated exam of the patient. There are NO changes in the patient's condition. Risks, benefits, and alternatives have been discussed and questions answered. Patient agrees to proceed with procedure. plan today is to repair the pelvic organ prolapse and perform a bulking agent
--- NOTE | 2022-12-11 10:43 | WPDANESEPPF ---
Anes - Initial Pre Proc Eval Procedure: Operation Date: 12/11/22 12:30 Proposed Procedures p Colpocleisis, - Colby Jackson MD s Cystoscopy, Injection Bulking Agent - Colby Jackson MD Date/Time: 12/11/22 10:43 Surgeon: Colby Jackson MD Pre Op Diagnosis: stress incont, incomp uterovag prolapse Patient Data Age: 77 Gender: F Height: 1.65 m Weight: 74.1 kg Last Vital Signs Temp 98.1 F 12/08/22 11:04 Pulse 71 12/08/22 11:04 Resp 18 12/08/22 11:04 BP 125/60 12/08/22 11:04 Pulse Ox 97 12/08/22 11:04 O2 Del Method Room Air 12/08/22 11:04 Allergies Allergy/AdvReac Type Severity Reaction Status Date / Time latex Allergy Unknown Rash Verified 12/08/22 10:10 Home Medications Medication Instructions Recorded Confirmed Type cholecalciferol (vitamin D3) 50 50 mcg PO DAILY #1 cap 10/11/21 12/08/22 Rx mcg (2,000 unit) capsule ferrous gluconate 324 mg (36 mg 324 mg PO DAILY 10/24/21 12/08/22 History iron) tablet buspirone 5 mg tablet See Rx Instructions PO BID PRN 08/21/22 12/08/22 Rx anxiety #180 tabs trazodone 50 mg tablet 50 - 100 mg PO QHS PRN insomnia 08/21/22 12/08/22 Rx #180 tabs citalopram 20 mg tablet 20 mg PO DAILY #90 tabs 11/13/22 12/08/22 Rx pravastatin 80 mg tablet 80 mg PO DAILY #90 tabs 11/28/22 12/08/22 Rx cilostazol 100 mg tablet 100 mg PO DAILY 12/08/22 12/08/22 History cyanocobalamin (vitamin B-12) 1,000 mcg PO EVERY OTHER DAY 12/08/22 12/08/22 History 1,000 mcg tablet gabapentin 100 mg capsule 100 mg PO TID PRN nerve pain 12/08/22 12/08/22 History nitrofurantoin 100 mg PO BID 12/08/22 12/08/22 History monohydrate/macrocrystals 100 mg capsule peg 400-propylene glycol (PF) 0.4 1 drp EACH EYE BID DRY EYES 12/08/22 12/08/22 History %-0.3 % eye drops in a dropperette (Systane (PF)) warfarin 1 mg tablet 6 mg PO .every other day 12/08/22 12/08/22 History warfarin 5 mg tablet 7 mg PO 3XW 12/08/22 12/08/22 History Patient hx anesthesia problems: none Family hx anesthesia problems: none Results Review: All pre-operative results and documents have been reviewed as part of the pre-operative evaluation. [facility] Past Medical History Medical History Depression GERD without esophagitis History of cervical cancer HTN (hypertension), benign HZV (herpes zoster virus) post herpetic neuralgia Long-term (current) use of anticoagulants, INR goal 2.0-3.0 Mixed hyperlipidemia Parkinsons disease Personal history of other venous thrombosis and embolism Surgical History Surgical History H/O colonoscopy (~06/07/15) hx of polyps, Dr Duarte H/O tubal ligation History of left lower extremity amputation History of left lower limb amputation (~1996) Hx of bilateral cataract extraction Hx of hernia repair S/P breast biopsy, bilateral S/P dilation and curettage S/P removal of left ovary S/P wrist surgery Family History Family History Sibling Family history of thyroid disease Family history of cataracts Family history of diabetes mellitus in first degree relative Diabetes mellitus Depression Grandparent Family history of malignant neoplasm of cervix Cerebrovascular accident Mother Family history of Hodgkin's lymphoma Patient's mother is , Onset Age: 74 Family history of lymphoma Depression Father Family history of cardiovascular disease Social History Social History Social History: . Lives in her own home in [place]. One son who will make medical decisions for her when needed. She wishes to be DNR. She is working on paperwork for [employer]. Smoking packs per day: 0.5 Smoking cigarettes per day: 10.0 Years smoked: 10 Smoking pack-years: 5.00 Smoking status: Former smoker Tobacco t
[2022-12-11] MEDS: ceFAZolin 2 GM/D5W 50 ML 2 GM/50 ML BAG IVPB (11:03)
[2022-12-11] MEDS: BUPIVACAINE/EPINEPHRINE 0.5% 50 ML VIAL 20 ML INFILTRATE (11:34)
--- NOTE | 2022-12-11 12:31 | W.PM.PROC2 ---
Procedure Note - Detailed Date of Procedure 12/11/22 Pre-op Diagnosis Rectocele/enterocele Female perineal laxity Intrinsic sphincter deficiency Post-op Diagnosis Same Procedure Performed Enterocele/rectocele repair Perineoplasty Cystoscopy with injection of suburethral bulking material Surgeon Colby Jackson MD Anesthesia General Indications This is a woman with pelvic organ prolapse. She has failed a pessary. She had stress incontinence with the pessary in place. With the pessary out she is dry. She would like treatment for her prolapse. She also requires concomitant stress incontinence procedure. She understands risks of bleeding, infection, damage to the bowel or urinary tract, recurrence of prolapse, fistula formation, postoperative voiding dysfunction including incontinence and retention, need for ancillary procedures, inability the penetrative intercourse. She agrees to proceed Findings Rectocele/enterocele Fixed urethra Description of Procedure She has correctly identified. Informed consent obtained. She from the operating room. She was given general anesthesia. She was placed in dorsal thigh position. All pressure points were padded. She was given appropriate perioperative antibiotics. A time-out performed. I placed Andersen catheter. I placed a [place] retractor. She had a fixed urethra. She had no significant cystocele. She had enterocele/rectocele beyond the introitus. I grasped the rectocele/enterocele with Allis clamps. Of note she had quite atrophic tissues. i made a rectangle shaped marking on the anterior and posterior side of the prolapse. I anesthetized the anterior and posterior side of the prolapse. I removed the mucosa off the posterior side of the prolapse. I did this leaving the underlying fascial tissues. I did the same on the anterior portion of the prolapse. I did not enter the enterocele sac. I took great care to not injure the rectum or bowels. I then performed sequential pursestring sutures with 0 Vicryl to completely reduce the prolapse. I trimmed excess vaginal mucosa. I closed mucosa to mucosa with interrupted 0 Vicryl sutures in a horizontal mattress fashion I then turned attention to the perineum. I anesthetized a joanne-shaped area of skin on the perineum. I removed this area of skin. Again poor tissue quality and atrophic vaginitis. I performed a standard perineal repair with interrupted 0 Vicryl sutures. A 2-0 Vicryl to close mucosa to mucosa thus completing the prolapse repair. I was ultimately satisfied with the amount of prolapse reduction On cystoscopy she had mild trabeculations. No abnormal red patches. No foreign bodies. Ureteral orifices were normal. There is no surgical artifact the bladder urethra. I then chose a site in the mid urethra 2 cm distal to bladder neck. I injected bulking agent circumferentially. I used 1 syringe of bulking agent forming several pillows [place] lately coapted urethra. I left the bladder partially full. I left vaginal packing for the next hour. Hemostasis was assured. Rectal exam was normal without artifact. She was awakened transferred to PACU in stable condition Implants None Estimated Blood Loss 40 Drains No Packing Yes (Vaginal packing to be removed in 1 hour) Pathology None sent Complications No immediate complications Condition Stable Disposition PACU
== END 2022-12-11 15:02 | disposition home or self-care (01) ==
PROVIDERS: PCP Family Medicine; Visit Provider Urology
PROC: (CPT 57120; principal; 2022-12-11 12:30)
PROC: 3E0K8GC Introduction of Other Therapeutic Substance into Genitourinary Tract, Via Natural or Artificial Opening Endoscopic (ICD-10-PCS; CPT 51715; 2022-12-11 12:30)
DX: N81.4 Uterovaginal prolapse, unspecified (principal); N36.42 Intrinsic sphincter deficiency (ISD); N39.3 Stress incontinence (female) (male); E78.2 Mixed hyperlipidemia; F32.A Depression, unspecified; I10 Essential (primary) hypertension; G20.A1 Parkinson's disease without dyskinesia, without mention of fluctuations; K21.00 Gastro-esophageal reflux disease with esophagitis, without bleeding; Z85.41 Personal history of malignant neoplasm of cervix uteri; Z86.718 Personal history of other venous thrombosis and embolism; Z87.891 Personal history of nicotine dependence; Z79.01 Long term (current) use of anticoagulants
CPT/HCPCS: 51715; 57250; 36415; 85025; 85055; 85610; 85730; 86850; 86900; 86901; 93005; J0690; J1100; J2371; J2405; J2704; J3010; J7030; J7120; L8606; Q9968

== ENCOUNTER 2023-08-06 10:47 | Emergency (ER) | payer MEDICARE, SELFPAY ==
--- NOTE | ~2023-08-06 | XR_ITS ---
AP and lateral views of the left hip Clinical history: Pain Findings: No acute fracture or dislocation is seen. Osseous alignment is anatomic. The left hip joint is preserved. Soft tissues are unremarkable. Impression: No significant abnormality is seen. Reviewed, dictated and finalized at location . Impression: No significant abnormality is seen.
[2023-08-06 11:03] VITALS: BP 129/64; PULSE 82; RESP 18; TEMP 37.2; O2SAT 98
--- NOTE | 2023-08-06 11:21 | ED.SKABFB ---
HPI - Skin/Abscess/Foreign Bdy General Chief complaint: Skin/Abscess/Foreign Body Stated complaint: Bump Left Leg Time Seen by Provider: 08/06/23 11:21 Source: patient Mode of arrival: ambulatory Limitations: no limitations History of Present Illness HPI narrative: 78-year-old female [facility] with complaint hard bump to left hip area. Noticed a bump 3 weeks ago while bathing. Called her primary care physician for appointment and unable to see her. Recommended that she come to [facility]. Patient states bump is nonpainful. Has not changed in size. All systems reviewed and negative except as noted above. Related Data Home Medications Medication Instructions Recorded Confirmed ferrous gluconate 324 mg (36 mg 324 mg PO DAILY 10/24/21 08/06/23 iron) tablet cyanocobalamin (vitamin B-12) 1,000 mcg PO EVERY OTHER DAY 12/08/22 08/06/23 1,000 mcg tablet peg 400-propylene glycol (PF) 0.4 1 drp EACH EYE BID DRY EYES 12/08/22 08/06/23 %-0.3 % eye drops in a dropperette (Systane (PF)) warfarin 1 mg tablet 6 mg PO .every other day 12/08/22 08/06/23 warfarin 5 mg tablet 7 mg PO 3XW 12/08/22 08/06/23 Allergies Allergy/AdvReac Type Severity Reaction Status Date / Time latex Allergy Unknown Rash Verified 08/06/23 11:01 Review of Systems Review of Systems: CONSTITUTIONAL: Denies fever, chills, or sweats. EYES: Denies visual changes, redness, or discharge. ENT: Denies rhinorrhea, congestion, sore throat, or otalgia. CARDIOVASCULAR: Denies chest pain, palpitations, or edema. RESPIRATORY: Denies cough or dyspnea. GASTROINTESTINAL: Denies abdominal pain, nausea, vomiting, or diarrhea. GENITOURINARY: Denies dysuria or hematuria. SKIN: Denies rash or itching. MUSCULOSKELETAL: Denies back pain, joint pain, or myalgia. Reports hard bump to L hip NEUROLOGIC: Denies headache, numbness, or weakness. PSYCHIATRIC: Denies anxiety or depression. All other systems reviewed are negative, except as documented in HPI. [facility] Past Medical History Medical History Depression GERD without esophagitis History of cervical cancer HTN (hypertension), benign HZV (herpes zoster virus) post herpetic neuralgia Long-term (current) use of anticoagulants, INR goal 2.0-3.0 Mixed hyperlipidemia Parkinsons disease Personal history of other venous thrombosis and embolism Surgical History Surgical History H/O colonoscopy (~06/07/15) hx of polyps, Dr Duarte H/O tubal ligation History of left lower extremity amputation History of left lower limb amputation (~1996) Hx of bilateral cataract extraction Hx of hernia repair S/P breast biopsy, bilateral S/P dilation and curettage S/P removal of left ovary S/P wrist surgery Family History Family History Sibling Family history of thyroid disease Family history of cataracts Family history of diabetes mellitus in first degree relative Diabetes mellitus Depression Grandparent Family history of malignant neoplasm of cervix Cerebrovascular accident Mother Family history of Hodgkin's lymphoma Patient's mother is , Onset Age: 74 Family history of lymphoma Depression Father Family history of cardiovascular disease Social History Social History Social History: . Lives in her own home in [place]. One son who will make medical decisions for her when needed. She wishes to be DNR. She is working on paperwork for [employer]. Smoking packs per day: 0.5 Smoking cigarettes per day: 10.0 Years smoked: 10 Smoking pack-years: 5.00 Smoking status: Former smoker Tobacco type: cigarettes Smoking end date: 03/05/97 Alcohol intake: never Substance use: never Substance use type: does not use Lack of Transportation: No Lack of Food: Never
== END 2023-08-06 12:07 | disposition home or self-care (01) ==
PROVIDERS: Emergency Provider Nurse Practitioner Family; PCP Nurse Practitioner Family
DX: R22.42 Localized swelling, mass and lump, left lower limb (principal); Z87.891 Personal history of nicotine dependence; K21.9 Gastro-esophageal reflux disease without esophagitis; I10 Essential (primary) hypertension; E78.2 Mixed hyperlipidemia; G20.A1 Parkinson's disease without dyskinesia, without mention of fluctuations; Z86.718 Personal history of other venous thrombosis and embolism; Z79.01 Long term (current) use of anticoagulants; Z85.41 Personal history of malignant neoplasm of cervix uteri; Z98.42 Cataract extraction status, left eye; Z98.41 Cataract extraction status, right eye
CPT/HCPCS: 73502; 99213; G0463

== ENCOUNTER 2023-08-31 15:30 | Outpatient (CLI) | payer MEDICARE, SELFPAY ==
--- NOTE | ~2023-08-31 | MM_ITS ---
EXAMINATION: MM screening [facility] BI w dorothy HISTORY: Screening mammogram TECHNIQUE: Craniocaudal and mediolateral oblique 3-D tomosynthesis images were obtained and synthetic 2-D images were generated. CAD analysis was submitted and interpreted. COMPARISON: 08/18/2022, 12/17/2020, 10/28/2019 BREAST PARENCHYMAL COMPOSITION:Not Dense. There are scattered areas of fibroglandular density. FINDINGS: Stable scattered bilateral benign calcifications are present. No suspicious mass, calcifica tion, or architectural distortion are identified in either breast to suggest malignancy. There has be en no suspicious interval change. IMPRESSION: No mammographic evidence of malignancy. Recommend routine screening mammography in one year. BI-RADS Category 2: Benign finding(s). Reviewed, dictated and finalized at [facility].
== END 2023-08-31 15:31 ==
LOC: MICIMG 15:31
PROVIDERS: PCP Family Medicine; Visit Provider Family Medicine
DX: Z12.31 Encounter for screening mammogram for malignant neoplasm of breast (principal)
CPT/HCPCS: 77063; 77067

== ENCOUNTER 2023-09-05 12:49 | Outpatient (CLI) | payer MEDICARE, SELFPAY ==
--- NOTE | ~2023-09-05 | CT_ITS ---
EXAMINATION: CT pelvis wo con DATE: 09/05/2023 13:12 INDICATION: Left lower quadrant abdominal swelling or mass TECHNIQUE: Computed tomography (CT) of the pelvis was performed without intravenous contrast. A BB wa s placed over the palpable abnormality of concern. Automated exposure control and iterative reconstru ction technique were employed.The dose-length product was 427.03 mGy-cm. COMPARISON: CT dated 09/26/2021. 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 The aneury sm currently measures 5.0 x 2.7 x 2.5 cm which is increased from the time of the prior study at which time corresponding measurements were 2.7 x 1.9 x 1.7 cm. The aneurysm was thrombosed at the time of the prior study. There is unable to be assessed on the current noncontrast study. No pathologically e nlarged pelvic or inguinal lymphadenopathy or other abnormal masses identified. Minimal amount of lik sebastian physiologic free fluid in the cul-de-sac. No other abnormal fluid collections. There is prominent diverticulosis along the sigmoid and visualized descending colon without focal associated inflammato ry stranding to suggest diverticulitis. Visualized small bowel and the appendix are normal. Bladder i s normal. Normal for age atrophy of the uterus and bilateral adnexa. There is severe facet osteoarthr itis on the right at L5-S1 and bilaterally at L4-L5. IMPRESSION: 1. 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 Previously this measured 2.9 x 1.9 x 1.7 cm and was thrombosed but this is unable to be assessed on the current noncontrast s tudy. Would consider vascular surgery consultation and could consider color Doppler ultrasound to ass ess for flow within the aneurysm. Reviewed, dictated and finalized at location B. IMPRESSION: 1. Apple mass of concern corresponds to an enlarging 5.0 x 2.7 x 2.5 cm aneurys m arising from the left limb of an aortobifemoral bypass graft and the left com mon femoral artery. Previously this measured 2.9 x 1.9 x 1.7 cm and was thrombo sed but this is unable to be assessed on the current noncontrast study. Would c onsider vascular surgery consultation and could consider color Doppler ultrasou nd to assess for flow within the aneurysm.
--- NOTE | ~2023-09-05 | US_ITS ---
US soft tissue groin LT Ordering provider: Kori Roman APRN History: . M79.89 - Other specified soft tissue disorders . Comparison: None. Technique: Ultrasound left groin. Findings/impression: Complex area seen in the left groin measuring 4 x 3.5 x 2.4 cm which may represent infiltrated lymph node versus mass. Hematoma is less likely. Further evaluation and follow-up advised. Reviewed, dictated and finalized at location A.
== END 2023-09-05 12:50 ==
LOC: MICIMG 12:51
PROVIDERS: PCP Nurse Practitioner Family; Visit Provider Nurse Practitioner Family
DX: R19.04 Left lower quadrant abdominal swelling, mass and lump (principal); L02.214 Cutaneous abscess of groin; M79.89 Other specified soft tissue disorders
CPT/HCPCS: 72192; 76882

== ENCOUNTER 2024-05-31 12:17 | Outpatient (CLI) | payer MEDICARE, SELFPAY ==
--- OUTSIDE RECORDS SUMMARY | 2024-05-31 13:38 | XMS_ITS | Clinical Summary ---
Author Organization [facility] Address [address] [place] [address] Care Team Providers Care French Binder Name Role Phone German Smith MD Primary Care Provider Source Comments [facility],non-owned Affiliates and Associated Physician Practices is amultiple site organization consisting of ambulatory clinics and hospital sitesin [place], [place], [place] and [place]. This disclosure is being madepursuant to the Care Everywhere program and may not contain all information available regarding this patient. Last updated 17.[facility] Social History Tobacco Use Types Packs/Day Years Used Date Smoking Tobacco: Never Assessed Sex and Gender Information Value Date Recorded Sex Assigned at Not on file Gender Identity Not on file Sexual Orientation Not on file Plan of Treatment Health Maintenance Due Date Last Done Comments BONE DENSITY TESTING 1945 HEPATITIS C SCREENING 06/02/1963 DTAP/TDAP/TD VACCINES (1 - Tdap) 1964 PNEUMOCOCCAL VACCINE 50+ (1 of 1 - PCV) 06/07/1995 ZOSTER VACCINE (1 of 2) 06/07/1995 Respiratory Syncytial Virus (RSV) Vaccine Pt: or over 60 yrs (1 - 1-dose 75+ series) 2020 COVID-19 VACCINE ( - 2023-2 5 season) 2023 INFLUENZA VACCINE (#1) 2023 DEPRESSION SCREENING 03/05/2024 MEDICARE AWV CALENDAR YEAR 2024 HEPATITIS B VACCINE Aged Out No longe r eligible based on patient's age to complete this topic HIB VACCINE Aged Out No longer eligi ble based on patient's age to complete this topic HPV VACCINE Aged Out No longer eligi ble based on patient's age to complete this topic MENINGOCOCCAL (Group B) VACC INE SHARED DECISION-MAKING Aged Out No longer eligibl e based on patient's age to complete this topic MENINGOCOCCAL GROUPS A/C/Y/W VACCINE Aged Out No longer eligible b ased on patient's age to complete this topic Care Teams French Binder Relationship Specialty Start Date End Date German Smith MD [address] [place] [address] PCP - General 09/26/21
--- OUTSIDE RECORDS SUMMARY | 2024-05-31 13:38 | XMS_ITS | Clinical Summary ---
Author Organization [facility] Address [address] [place] [address] Care Team Providers Care Railroad Engineer Name Role Phone Erik Hyatt MD Primary Care Provider Allergies Active Allergy Reactions Criticality Noted Date Comments Latex Itching Low 05/14/2024 Medications cilostazoL (PLETAL) 100 mg tablet Take 1 tablet (100 mg total) by mouth Active escitalopram (LEXAPRO) 20 mg tablet Take 1 tablet (20 mg total) by mouth daily Active pravastatin (PRAVACHOL) 80 mg tablet Take 1 tablet (80 mg total) by mouth daily Active warfarin (COUMADIN) 5 mg tablet Take 1 tablet (5 mg total) by mouth daily Active warfarin (COUMADIN) 1 mg tablet Take 1 tablet (1 mg total) by mouth Patient takes 5mg and 2 1mg tabs Active gabapentin (NEURONTIN) 100 mg capsule Take 1 capsule (100 mg total) by mouth 3 (three) times a day Active traZODone (DESYREL) 50 mg tablet Take 1 tablet (50 mg total) by mouth daily Active cholecalciferol (Vitamin D3) 2000 unit capsule 1 capsule (2,000 Units total) Active cyanocobalamin (vitamin B-12) 1,000 mcg tabletIndicatio ns:Prevention of Vitamin B12 Deficiency Take 1 tablet (1,000 mcg total) by mouth daily Active Active Problems Problem Noted Date Diagnosed Date 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 We will obtain CTA abdomen and pelvis with runoff to better assess the femoral artery aneurysms. It does appear thrombosed on both CT and duplex however is potentially increased in size. Follow-up in 1 month. 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 No signs of infectious etiology, likely degenerative. Discussed findings with the patient, recommend ongoing surveillance with repeat evaluation in 6 months. Assessment & Plan (09/19/2023 12:50 PM CDT): CT scan from [facility] with concern for a left common femoral anastomotic 5 cm aneurysms as well as a saccular aneurysms off the limb of her aortobifemoral artery bypass. I have ordered a CTA abdomen pelvis with contrast as this was a noncontrast scan, I would suspect that these changes with bypass which has been in for over 20 years are degenerative changes in the graft and not due to infection however she will need further evaluation for this given her history of CML and pancytopenia. We will follow up in the office in 1-2 weeks. Mixed hyperlipidemia 09/18/2023 Assessment & Plan (10/11/2023 7:18 AM CDT): Stable continue pravastatin 80 mg. Assessment & Plan (09/19/2023 12:48 PM CDT): Stable continue pravastatin Encounters Date Type Department Care Team Description 05/14/2024 10:00 AM CDT Office Visit [facility] at [address] [place] [phone] Aleah Boles NP Mixed hyperlipidemia (Primary Dx); Femoral artery aneurysm 05/14/2024 Orders Only [facility] at [address] [place] [address] Vonnie Helton MD Femoral artery aneurysm (Primary Dx) 05/06/2024 10:00 AM RESIDENTIAL SUPERVISOR Ancillary Procedure [facility] Vascular and Vein Surgery at [address] [place] [address] Femoral artery aneurysm; Other specified symptoms and signs involving the circulatory and respiratory systems 05/06/2024 10:00 AM RESIDENTIAL SUPERVISOR Ancillary Procedure [facility] Vein Surgery at [address] [place] [address] Femoral artery aneurysm 04/10/2024 Orders Only [facility] Vein Surgery [address] [place] [address] Vonnie Helton MD Femoral artery aneurysm (Primary Dx) from Last 3 Months Social History Tobacco Use Types Packs/Day Years Used Date Smoking Tobacco: Unknown Tobacco Cessation:Counseling Given: Not Answered Comments Unknown Sex and Gender Information Value Date Recorded Sex Assigned at Not on file Legal Sex Female 1:00 PM RESIDENTIAL SUPERVISOR Gender Identity Not on file Sexual Orientation Not on file Obstetrics History Last Filed Vital Signs Vital Sign Reading Time Taken Comments Blood Pressure 142/63 05/14/2024 10:02 AM CDT Pulse 86 05/14/2024 10:02 AM CDT Temperature - - Respiratory Rate - - Oxygen Saturation 98% 05/14/2024 10:02 AM CDT Inhaled Oxygen Concentration - - Weight 69.4 kg (153 lb) 05/14/2024 10:02 AM CDT Height 167.6 cm (5' 6 ) 05/14/2024 10:02 AM CDT Body Mass Index 24.69 05/14/2024 10:02 AM CDT Plan of Treatment Health Maintenance Due Date Last Done Comments Depression Screening 1945 Fall Risk Assessment 1945 Hepatitis C Screening 1945 Osteoporosis Screening-Bone Density Scan 1945 DTaP/Tdap/Td Vaccine (1 - Tdap) 1956 Hepatitis B Screening 06/07/1963 Well Visit 65+ 2010 Pneumococcal vaccine 65+ (2 of 2 - PPSV23) 02/06/2021 12/12/2020 Covid-19 Vaccine ( - 2023-2 5 season) 2023 11/29/2022, 12/11/2021, 01/02/2021, Additional history exists Influenza Vaccine (#1) 2023 , 12/11/2021, 12/12/2020, Additional history exists Zoster Vaccine Completed 09/10/2022, 07/10/2022 Procedures Procedure Name Priority Date/Time Associated Diagnosis Comments US TRELL Schedule Routine, Read Routine (OP Routine) 05/06/2024 11:03 AM RESIDENTIAL SUPERVISOR Femoral artery aneurysm US DUPLEX SCAN AORTA, IVC ILIAC COMPLETE Schedule Routine, Read Routine (OP Routine) 05/06/2024 11:03 AM RESIDENTIAL SUPERVISOR Femoral artery aneurysm Other specified symptoms and signs involving the circulatory and respiratory systems from Last 3 Months Results * US TRELL (05/06/2024 11:03 AM RESIDENTIAL SUPERVISOR) Anatomical Region Laterality Modality Vascular N/A Ultrasound 05/06/2024 9:51 AM RESIDENTIAL SUPERVISOR Narrative 05/07/2024 10:15 AM RESIDENTIAL SUPERVISOR Vascular & Vein Surgery [address] [place] [address] Lower Extremity Arterial Doppler Report Patient Name: ESTRELLA ROBLES : 1945 Study Date: 05/06/2024 9:51:00 AM Gender: F Reservoir Engineer: Dia Dotson RVT Location: [facility] Ref Provider: VONNIE HELTON Quality: Adequate Order Provider: VONNIE HELTON PROCEDURES: Arterial Report: Ankle - Brachial Index Doppler exam. INDICATIONS: S/P aobifem BPG & Lt BKA ~20 years ago. Follow up Lt limb saccular aneurysm. HISTORY: HLD. Former smoker. COMPARISONS: No previous exams. MEASUREMENTS: Right Value Left Value Rt Brachial Pressure 139 mmHg Lt Brachial Pressure 137 mmHg Rt OCCUPATIONAL THERAPY SUPERVISOR Pressure 130 mmHg Rt DPA Pressure 127 mmHg Rt PT TRELL Resting 0.94 Rt DP TRELL Resting 0.91 FINDINGS: Right Posterior Tibial Artery Analysis: The posterior tibial waveform is triphasic. Right Anterior Tibial Artery Analysis: The anterior tibial waveform is triphasic. CONCLUSIONS: 1. Ankle-brachial index of 0.9-1.3 is within normal limits in the right lower extremity. ATTESTATION: I have reviewed and interpreted the pertinent images and measurements of this study. I attest to the conclusions in the final report that is provided above. Electronically Signed By: Vonnie Helton MD 05/07/2024 9:29:05 AM RESIDENTIAL SUPERVISOR Procedure Note Vonnie Helton MD - 05/07/2024 Vascular & Vein Surgery [address] [place] [id number] Lower Extremity Arterial Doppler Report Patient Name: ESTRELLA ROBLES : 1945 Study Date: 05/06/2024 9:51:00 AM Gender: F Reservoir Engineer: Dia Dotson RVT Location: [facility] Ref Provider: VONNIE HELTON Quality: Adequate Order Provider: VONNIE HELTON PROCEDURES: Arterial Report: Ankle - Brachial Index Doppler exam. 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 HISTORY: HLD. Former smoker. COMPARISONS: No previous exams. MEASUREMENTS: Right Value Left Value Rt Brachial Pressure 139 mmHg Lt Brachial Pressure 137 mmHg Rt OCCUPATIONAL THERAPY SUPERVISOR Pressure 130 mmHg Rt DPA Pressure 127 mmHg Rt PT TRELL Resting 0.94 Rt DP TRELL Resting 0.91 FINDINGS: Right Posterior Tibial Artery Analysis: The posterior tibial waveform is triphasic. Right Anterior Tibial Artery Analysis: The anterior tibial waveform is triphasic. CONCLUSIONS: 1. Ankle-brachial index of 0.9-1.3 is within normal limits in the rightlower extremity. ATTESTATION: I have reviewed and interpreted the pertinent images and measurements ofthis study. I attest to the conclusions in the final report that is provided above. Electronically Signed By: Vonnie Helton MD 05/07/2024 9:29:05 AM RESIDENTIAL SUPERVISOR us Vonnie Helton MD IMG US PROCEDURES Final Result * US Duplex Scan Aorta, IVC Iliac Complete (05/06/2024 11:03 AM RESIDENTIAL SUPERVISOR) Anatomical Region Laterality Modality Vascular N/A Ultrasound 05/06/2024 10:1 2 AM RESIDENTIAL SUPERVISOR Narrative 05/07/2024 8:41 AM RESIDENTIAL SUPERVISOR Vascular & Vein Surgery [address] [place] [address] Abdominal Aortic Duplex Ultrasound Report Patient Name: ESTRELLA ROBLES : 1945 Study Date: 05/06/2024 10:12:35 AM Gender: F Reservoir Engineer: SEAN Location: [facility] Ref Provider: VONNIE HELTON Quality: Adequate Order Provider: VONNIE HELTON PROCEDURES: Arterial Report: Abdominal Aorta Stent Graft Duplex. INDICATIONS: S/P aobifem BPG & Lt BKA ~20 years ago. Follow up Lt saccular aneurysm. HISTORY: HLD. Former smoker. COMPARISONS: Prior CTA 10/03/23. MEASUREMENTS: Velocities Value Diameters Value Aorta Prx PSV 73.00 cm/sec Aorta Prx AP Dim 1.80 cm Aorta Mid PSV 136.00 cm/sec Aorta Mid AP Dim 1.53 cm MEASUREMENTS: Bypass Measurements Measurement Value Units Location/Type Ao-bifem Inflow [place] Artery PSV 140.00 cm/sec Anast Prx PSV 95.00 cm/sec BPG Prx PSV 142.00 cm/sec BPG Mid PSV 24.00 cm/sec Rt Limb Prx PSV 80.00 cm/sec Rt Limb Mid PSV 72.00 cm/sec Rt Limb Dst PSV 98.00 cm/sec Anast Dst PSV 142.00 cm/sec Outflow [place] Artery PSV 121.00 cm/sec Lt Limb Prx PSV 81.00 cm/sec Lt Limb Mid PSV 42.00 cm/sec Lt Limb Dst PSV 63.00 cm/sec Anast Dst PSV 116.00 cm/sec Outflow [place] Artery PSV 93.00 cm/sec FINDINGS: Study Quality: Technically difficult due to overlying bowel. Abdominal Aorta: Normal diameter. Atherosclerotic plaque noted. Flow velocities and spectral waveforms are within normal limits. Patent aortobifemoral bypass graft. Left distal limb aneurysm noted measuring 2.98 x 4.71 cm with active portion measuring 1.72 x 1.98 cm. CONCLUSIONS: 1. Patent aortobifemoral. The left common femoral artery anastomosis is aneurysmal measuring 4.71 x 2.98 cm. ATTESTATION: I have reviewed and interpreted the pertinent images and measurements of this study. I attest to the conclusions in the final report that is provided above. Electronically Signed By: Vonnie Helton MD 05/07/2024 8:41:23 AM RESIDENTIAL SUPERVISOR Procedure Note Vonnie Helton MD - 05/07/2024 Vascular & Vein Surgery [address] [place] [address] Abdominal Aortic Duplex Ultrasound Report Patient Name: ESTRELLA ROBLES : 1945 Study Date: 05/06/2024 10:12:35 AM Gender: F Reservoir Engineer: Location: [facility] Ref Provider: VONNIE HELTON Quality: Adequate Order Provider: VONNIE HELTON PROCEDURES: Arterial Report: Abdominal Aorta Stent Graft Duplex. INDICATIONS: S/P aobifem BPG & Lt BKA ~20 years ago. Follow up Lt saccular aneurysm. HISTORY: HLD. Former smoker. COMPARISONS: Prior CTA 10/03/23. MEASUREMENTS: Velocities Value Diameters Value Aorta Prx PSV 73.00 cm/sec Aorta Prx AP Dim 1.80 cm Aorta Mid PSV 136.00 cm/sec Aorta Mid AP Dim 1.53 cm MEASUREMENTS: Bypass Measurements Measurement Value Units Location/Type Ao-bifem Inflow [place] Artery PSV 140.00 cm/sec Anast Prx PSV 95.00 cm/sec BPG Prx PSV 142.00 cm/sec BPG Mid PSV 24.00 cm/sec Rt Limb Prx PSV 80.00 cm/sec Rt Limb Mid PSV 72.00 cm/sec Rt Limb Dst PSV 98.00 cm/sec Anast Dst PSV 142.00 cm/sec Outflow [place] Artery PSV 121.00 cm/sec Lt Limb Prx PSV 81.00 cm/sec Lt Limb Mid PSV 42.00 cm/sec Lt Limb Dst PSV 63.00 cm/sec Anast Dst PSV 116.00 cm/sec Outflow [place] Artery PSV 93.00 cm/sec FINDINGS: Study Quality: Technically difficult due to overlying bowel. Abdominal Aorta: Normal diameter. Atherosclerotic plaque noted. Flow velocities andspectral waveforms are within normal limits. Patent aortobifemoral bypass graft. Left distal limbaneurysm noted measuring 2.98 x 4.71 cm with active portion measuring 1.72 x 1.98 cm. CONCLUSIONS: 1. Patent aortobifemoral. The left common femoral artery anastomosis isaneurysmal measuring 4.71 x 2.98 cm. ATTESTATION: I have reviewed and interpreted the pertinent images and measurements ofthis study. I attest to the conclusions in the final report that is provided above. Electronically Signed By: Vonnie Helton MD 05/07/2024 8:41:23 AM RESIDENTIAL SUPERVISOR Vonnie Helton MD [facility] PROCEDURES Final Result from Last 3 Months Insurance [facility] Address: [address] [address] [place] [address] [facility] Address: [address] [address] [place] [address] Care Teams Railroad Engineer Relationship Specialty Start Date End Date Erik Hyatt MD [address] [facility] [address] [address] PCP - General Family Practice 09/11/23
--- OUTSIDE RECORDS SUMMARY | 2024-05-31 13:38 | XMS_ITS | Continuity of Care Document ---
Author Organization [facility] Address [address] [place] [address] [place] [address] Phone Care Team Providers Care Poultry Husbandman Name Role Phone Salinas Phelps Unavailable Unavailable Procedures Procedure Date Office/outpatient Visit, Est Eye Exam & Treatment Refraction Office/outpatient Visit, Est Office/outpatient Visit, [facility] Advance Directives Directive Yes / No Effective Date File Name No Information Encounters Encounter Description Practice Location Reason(s) For Visit Diagnoses Date Provider Providers Copied on Encounter Office/outpat ient Visit, [facility], [address] [place] [address] [address], [place], [place], [id number], tel:[phone] SEC [facility] No Information 3-201 0 Lenin Niño. [address] [facility] , [address], [place], [place], [facility], . tel:[phone] [facility], [address] [place] [address] [address], [place], [place], [id number], [place] tel:[phone] SEC [facility] No Information 4-200 9 Lenin Niño. [address] [facility], [address], [place], [place], [facility], . tel:[phone] Office/outpat ient Visit, [facility], [address] [place] [address] [address], [place], [place], [id number], tel:[phone] [facility] [place] No Information 7[address] Doialma Edkrzysztof. [address] [facility] , [address], [place], [address], [place]. tel:[phone] Office/outpat ient Visit, [facility], [address], [place], [place], [id number], [place] tel:[phone] SEC [facility] No Information 8 Doialma Niño. [address] [facility] , [address], [place], [address], [place]. tel:[phone] Referring Provider: German Smith MD , [address], [place], [address]. tel:[phone] Family History Family Member Type Diagnosis Age At Onset No Information Payers Payer name Insurance type Covered green party ID Authoriza tion(s) [employer] [id number] Written Refer ral Social History Type Description Quantity Date Captured Comments Sex Female Smoking Status No Information Chief Complaint And Reason For Visit No Information Reason For Referral Reason For Referral No Information History Of Present Illness Encounter Date Complaint History Of Prese nt Illness No Information Functional Status Date Functional Assessmen t No Information Instructions Date Instruction Additional Infor mation No Information Assessments Type Assessment Date No Information Patient Care Teams Name Effective Dates (start - stop) Status Members No Information
--- OUTSIDE RECORDS SUMMARY | 2024-05-31 13:38 | XMS_ITS | Encounter Summary ---
Author Organization [facility] [employer] [facility] Address [address] [place] [address] Care Team Providers Care Rough And Trueing Machine Operator Name Role Phone Erik Hyatt MD Primary Care Provider Reason for Visit * Reason Comments Follow Up Encounter Details Date Type Department Care Team (Late st Contact Info) Description 05/30/2024 12:00 PM CDT Office Visit [facility] Oncology and Hematology - [place] [address] [facility] [address] [place] [address] Mauricio Dao MD [address] [facility] [address] [place] [address] Pancytopenia (CMS/HCC) (Primary Dx) Social History Tobacco Use Types Packs/Day Years Used Date Smoking Tobacco: Former Cigarettes 1.5 20 0 03/05/1974 - 03/05/1994 Tobacco Cessation:Counseling Given: Not Answered Alcohol Use Standard Drinks/Week Comments Never 0 (1 standard drink = 0.6 oz pur e alcohol) Comments Unknown Sex and Gender Information Value Date Recorded Sex Assigned at Not on file Legal Sex Female 1:30 PM CDT Gender Identity Not on file Sexual Orientation Not on file documented as of this encounter Last Filed Vital Signs Vital Sign Reading Time Taken Comments Blood Pressure 109/59 05/30/2024 12:08 PM CDT Pulse 81 05/30/2024 12:08 PM CDT Temperature 36.7 C (98 F) 05/30/2024 12:08 PM CDT Respiratory Rate 15 05/30/2024 12:08 PM CDT Oxygen Saturation 90% 05/30/2024 12:08 PM CDT Inhaled Oxygen Concentration - - Weight 69.9 kg (154 lb) 05/30/2024 12:08 PM CDT Height - - Body Mass Index 24.86 11/02/2021 1:34 PM CDT documented in this encounter Progress Notes * Mauricio Dao MD - 05/30/2024 12:55 PM CDT HEMATOLOGY / ONCOLOGY PROGRESS NOTE Patient Identification: Name: Francia Robles Age: 78 y.o. Sex: female : 1945 DIAGNOSIS Pancytopenia CURRENT TREATMENT Surveillance TREATMENT HISTORY Bone marrow aspiration and biopsy was performed on October 25, 2021 SUBJECTIVE Patient came into the office for follow-up visit. She is complaining of tiredness and fatigue. Denies any bleeding and bruising. Denies any chest pain and shortness of breath. Weight and appetite stable. No other new complaints. Review of system Constitutional: Patient did not mention fevers, sweats, complain of tiredness and fatigue, weight and appetite stable HEENT: Patient did not mention sinus congestion, hearing or vision problems Respiratory: Patient did not mention cough, dyspnea, wheeze Cardiovascular: Patient did not mention chest pain, exertional chest pressure/discomfort, nausea, syncope, shortness of breath GI: Patient did not mention constipation, diarrhea, dsyphagia, reflux symptoms, vomiting, melena : Patient did not mention dysuria, frequency, incontinence, urgency Integumentary system: no lymphadenopathy, sweats, flushing Musculoskeletal: Patient not mention: myalgia, arthralgia Neurological: Patient did not mention blurry or disturbed vision, numbness/weakness, dizziness Skin: No lumps, bumps or rashes. 12 point review of system was reviewed Objective: Vital signs in last 24 hours: As per nursing note Exam: General appearance: alert, cooperative, no distress, appears stated age Head: normocephalic, without obvious abnormality, atraumatic Eyes: conjunctivae/corneas clear, EOM's intact Ears: normal external ear canals AU Nose: Nares normal. Septum midline. Mucosa normal. No drainage or sinus tenderness Throat: Lips, mucosa, and tongue normal. Teeth and gums normal Neck: supple, symmetrical, trachea midline. Lungs: clear to auscultation bilaterally Heart: regular rate and rhythm, S1, S2 normal, no murmur, click, rub or gallop Abdomen: soft, non-tender. Bowel sounds normal. No masses, No organomegaly Extremities: extremities normal, atraumatic, no cyanosis or edema, there is a small nodule in the left groin at the previous scar from leg surgery. Skin: Skin color, texture, turgor normal. No rashes or lesions Lymph nodes: No lymphadenopathy Neuro: No obvious focal deficit Exam as above PATH LABS Labs from September 26, 2021 showed WBC 2.6 hemoglobin 10.1 MCV 93 platelet 1 75,000 neutrophils 64% lymphocyte 25% creatinine 0.8 total protein 5.7 total bilirubin 0.4 LDH 185 reticulocyte count 2.8 vitamin B12 386 iron 50 saturation 17% Labs from June 23 showed WBC 3.4 hemoglobin 12.4 platelet 89,000 LDH 213 creatinine 0.9 Labs from October 20 showed WBC 2.6 hemoglobin 11.5 platelets 77,000 INR 2.7 Labs from February 15 showed WBC 2.8 hemoglobin 10.8 MCV 94 platelet 86,000 neutrophils 51% lymphocyte 39% total protein 5.5 sodium 145 Labs from August 17 showed WBC 2.6 hemoglobin 9.2 MCV 96 platelets 69,000 iron 47 saturation 19 B12 1373 ferritin 84 Labs from August 22 showed BCR-ABL translocation not detected angiotensin- converting enzyme normal at44 EBV serology positive for past infection Labs from May 23 showed hemoglobin 6.6 MCV 101 platelet 74,000 WBC 3.5 neutrophils 27% with ANC of 900 creatinine 1.0 Assessment: Plan: Patient Active Problem List Diagnosis Date Noted Pancytopenia (CMS/HCC) 09/19/2021 Lymphadenopathy 09/19/2021 Pancytopenia. Secondary to splenomegaly of unclear etiology. CT soft tissue neck chest abdomen and pelvis done on September 26 showed no pathologically enlarged lymph node but marked splenomegaly with thespleen size of 17.2 cm. There was some evidence of a splenic infarction. There was also thrombosis of the left superficial femoral artery. Bone marrow aspiration and biopsy done on October 25 showed normocellular marrow without evidence oflymphoma and leukemia. PET scan done on January 12 showed moderate splenomegaly with mild improvement now measures 15.1 cm decreased from 16 8.cm previously. SUV equals to the liver with maximum SUV of 3.5. There is no evidence of lymphadenopathy. BCR-ABL translocation not detected. Angiotensin-converting enzyme negative for sarcoidosis. EBV serology came back positive indicating likely past infection. Repeat labs showed significant decline in hemoglobin. I will repeat bone marrow aspiration and biopsy. I will transfuse 2 units of packed red blood cell. She will continue iron and vitamin B12 supplement and follow-up in 2 weeks. Peripheral vascular disease status post amputation. Stable on warfarin. 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 Follow-up in 2 weeks. 05/30/2024 Mauricio Dao MD documented in this encounter Plan of Treatment Upcoming Encounters Date Type Department Care Team (Late st Contact Info) Description 06/30/2024 9:30 AM CDT Office Visit [facility] Oncology and Hematology - [place] [address] [place] [address] Chelsea Gordon MD [address] [place] [address] Scheduled Orders Name Type Priority Associated Diagnoses Orde r Schedule BONE MARROW ASPIRATION & BIOPSY Procedures Routine Pancytopenia (CMS/HCC) Expected: 2024, Expires: 06/30/2024 TYPE AND SCREEN Blood Bank Routine Pancytopenia (CMS/HCC) Expected: 05/30/2024, Expires: 05/30/2025 documented as of this encounter Visit Diagnoses Diagnosis Pancytopenia (CMS/HCC)- Primary Other pancytopenia documented in this encounter Care Teams Rough And Trueing Machine Operator Relationship Specialty Start Date End Date Erik Hyatt MD [address] [place] [phone] PCP - General Family Practice 09/19/21 documented as of this encounter
--- OUTSIDE RECORDS SUMMARY | 2024-05-31 13:38 | XMS_ITS | Encounter Summary ---
Author Organization [facility] [employer] [facility] Address [address] [place] [address] Care Team Providers Care Piano Tuner Name Role Phone Erik Hyatt MD Primary Care Provider Encounter Details Date Type Department Care Team ([facility] Contact Info) Description 05/26/[address] [facility] Oncology and Hematology - [place] [address] [place] [address] Mauricio Dao MD [address] [facility] [address] [place] [address] Social History Tobacco Use Types Packs/Day Years Used Date Smoking Tobacco: Former Cigarettes 1.5 20 0 03/05/1974 - 03/05/1994 Alcohol Use Standard Drinks/Week Comments Never 0 (1 standard drink = 0.6 oz pur e alcohol) Comments Unknown Sex and Gender Information Value Date Recorded Sex Assigned at Not on file Legal Sex Female 1:30 PM CDT Gender Identity Not on file Sexual Orientation Not on file documented as of this encounter Plan of Treatment Upcoming Encounters Date Type Department Care Team (Late st Contact Info) Description 06/30/2024 9:30 AM CDT Office Visit [facility] Oncology and Hematology - [place] [address] [place] [address] Chelsea Gordon MD [address] [place] [address] documented as of this encounter Procedures Procedure Name Priority Date/Time Associated Diagnosis Comments CBC WITH AUTODIFFERENTIAL Routine 2024 12:56 PM CDT documented in this encounter Results * CBC WITH AUTODIFFERENTIAL (05/23/2024 12:56 PM CDT) Blood us Mauricio Dao MD HEMATOLOGY ORDERABLES Final Res ult documented in this encounter Visit Diagnoses Not on filedocumented in this encounter Care Teams Piano Tuner Relationship Specialty Start Date End Date Erik Hyatt MD [address] [place] [address] PCP - General Family Practice 09/19/21 documented as of this encounter
--- OUTSIDE RECORDS SUMMARY | 2024-05-31 13:38 | XMS_ITS | Referral Summary ---
Author Organization [facility] Address [address] [place] [address] Care Team Providers Care Commercial Art Instructor Name Role Phone Erik Hyatt MD Primary Care Provider Encounters Date Type Department Care Team Description 05/14/2024 Orders Only [facility] Vascular at [address] [address] Vonnie Helton MD Femoral artery aneurysm (Primary Dx) 05/14/2024 10:00 AM CDT Office Visit [facility] Vascular at [address] [address] Aleah Boles NP Mixed hyperlipidemia (Primary Dx); Femoral artery aneurysm 05/06/2024 10:00 AM GEOPHYSICAL PROSPECTING SURVEYOR Ancillary Procedure [facility] Vascular and Vein Surgery at [address] [address] Femoral artery aneurysm; Other specified symptoms and signs involving the circulatory and respiratory systems 05/06/2024 10:00 AM GEOPHYSICAL PROSPECTING SURVEYOR Ancillary Procedure [facility] Vascular and Vein Surgery at [address] [address] Femoral artery aneurysm 04/10/2024 Orders Only [facility] Vascular and Vein Surgery [address] [place] [phone] Vonnie Helton MD Femoral artery aneurysm (Primary Dx) from Last 3 Months Allergies Active Allergy Reactions Criticality Noted Date [...] (09/19/2023 12:50 PM CDT): CT scan from [facility] with concern for a left common femoral [...] (09/19/2023 12:48 PM CDT): Stable continue pravastatin Social History Tobacco Use Types Packs/Day Years Used Date Smoking Tobacco: Unknown Tobacco Cessation:Counseling Given: Not Answered Comments Unknown Sex and Gender Information Value Date Recorded Sex Assigned at Not on file Legal Sex Female 1:00 PM GEOPHYSICAL PROSPECTING SURVEYOR Gender Identity Not on file Sexual Orientation Not on file Last Filed Vital Signs Vital Sign Reading [...] 05/14/2024 10:02 AM CDT Plan of Treatment Not on file Procedures Procedure Name Priority Date/Time Associated Diagnosis Comments US TRELL Schedule Routine, Read Routine (OP Routine) 05/06/2024 11:03 AM GEOPHYSICAL PROSPECTING SURVEYOR Femoral artery aneurysm US DUPLEX SCAN AORTA, IVC ILIAC COMPLETE Schedule Routine, Read Routine (OP Routine) 05/06/2024 11:03 AM GEOPHYSICAL PROSPECTING SURVEYOR Femoral artery aneurysm Other specified symptoms and signs involving the circulatory and respiratory systems from Last 3 Months Results * US TRELL (05/06/2024 11:03 AM GEOPHYSICAL PROSPECTING SURVEYOR) Anatomical Region Laterality Modality Vascular N/A Ultrasound 05/06/2024 9:51 AM GEOPHYSICAL PROSPECTING SURVEYOR Narrative 05/07/2024 10:15 AM GEOPHYSICAL PROSPECTING SURVEYOR Vascular & Vein Surgery [address] [facility] [place] [address] Lower Extremity Arterial Doppler Report Patient Name: ESTRELLA ROBLES : 1945 Study Date: 05/06/2024 9:51:00 AM Gender: F Skilled Nursing Professional: Dia Dotson RVYobany Location: [facility] Ref Provider: VONNIE HELTON Quality: Adequate Order Provider: VONNIE HELTON PROCEDURES: Arterial Report: Ankle - Brachial Index Doppler exam. INDICATIONS: S/P aobifem BPG & Lt BKA ~20 years ago. Follow up Lt limb saccular aneurysm. HISTORY: HLD. Former smoker. COMPARISONS: No previous exams. MEASUREMENTS: Right Value Left Value Rt Brachial Pressure 139 mmHg Lt Brachial Pressure 137 mmHg Rt MEMBERSHIP ADVISOR Pressure 130 mmHg Rt DPA Pressure 127 [...] By: Vonnie Helton MD 05/07/2024 9:29:05 AM GEOPHYSICAL PROSPECTING SURVEYOR Procedure Note Vonnie Helton MD - 05/07/2024 Vascular & Vein Surgery [address] [facility] [place] [address] Lower Extremity Arterial Doppler Report Patient Name: ESTRELLA ROBLES : 1945 Study Date: 05/06/2024 9:51:00 AM Gender: F Skilled Nursing Professional: Dia Dotson RVYobany Location: [facility] Ref Provider: VONNIE HELTON Quality: Adequate Order Provider: VONNIE HELTON PROCEDURES: Arterial Report: Ankle - Brachial Index Doppler exam. 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 HISTORY: HLD. Former smoker. COMPARISONS: No previous exams. MEASUREMENTS: Right Value Left Value Rt Brachial Pressure 139 mmHg Lt Brachial Pressure 137 mmHg Rt MEMBERSHIP ADVISOR Pressure 130 mmHg Rt DPA Pressure 127 [...] By: Vonnie Helton MD 05/07/2024 9:29:05 AM GEOPHYSICAL PROSPECTING SURVEYOR us Vonnie Helton MD IMG US PROCEDURES Final Result * US Duplex Scan Aorta, IVC Iliac Complete (05/06/2024 11:03 AM GEOPHYSICAL PROSPECTING SURVEYOR) Anatomical Region Laterality Modality Vascular N/A Ultrasound 05/06/2024 10:1 2 AM GEOPHYSICAL PROSPECTING SURVEYOR Narrative 05/07/2024 8:41 AM GEOPHYSICAL PROSPECTING SURVEYOR Vascular & Vein Surgery [address] [place] [address]. [place] [address] Abdominal Aortic Duplex Ultrasound Report Patient Name: ESTRELLA ROBLES : 1945 Study Date: 05/06/2024 10:12:35 AM Gender: F Skilled Nursing Professional: SEAN Location: [facility] Ref Provider: VONNIE HELTON Quality: [...] Measurements Measurement Value Units Location/Type Ao-bifem Inflow Robinson Artery PSV 140.00 cm/sec Anast Prx PSV 95.00 cm/sec BPG Prx PSV 142.00 cm/sec BPG Mid PSV 24.00 cm/sec Rt Limb Prx PSV 80.00 cm/sec Rt Limb Mid PSV 72.00 cm/sec Rt Limb Dst PSV 98.00 cm/sec Anast Dst PSV 142.00 cm/sec Outflow Robinson Artery PSV 121.00 cm/sec Lt Limb Prx PSV 81.00 cm/sec Lt Limb Mid PSV 42.00 cm/sec Lt Limb Dst PSV 63.00 cm/sec Anast Dst PSV 116.00 cm/sec Outflow Robinson Artery PSV 93.00 cm/sec FINDINGS: Study Quality: [...] By: Vonnie Helton MD 05/07/2024 8:41:23 AM GEOPHYSICAL PROSPECTING SURVEYOR Procedure Note Vonnie Helton MD - 05/07/2024 Vascular & Vein Surgery [address] [place] [address]. [place] [address] Abdominal Aortic Duplex Ultrasound Report Patient Name: ESTRELLA ROBLES : 1945 Study Date: 05/06/2024 10:12:35 AM Gender: F Skilled Nursing Professional: Location: [facility] Ref Provider: VONNIE HELTON Quality: [...] Measurements Measurement Value Units Location/Type Ao-bifem Inflow Robinson Artery PSV 140.00 cm/sec Anast Prx PSV 95.00 cm/sec BPG Prx PSV 142.00 cm/sec BPG Mid PSV 24.00 cm/sec Rt Limb Prx PSV 80.00 cm/sec Rt Limb Mid PSV 72.00 cm/sec Rt Limb Dst PSV 98.00 cm/sec Anast Dst PSV 142.00 cm/sec Outflow Robinson Artery PSV 121.00 cm/sec Lt Limb Prx PSV 81.00 cm/sec Lt Limb Mid PSV 42.00 cm/sec Lt Limb Dst PSV 63.00 cm/sec Anast Dst PSV 116.00 cm/sec Outflow Robinson Artery PSV 93.00 cm/sec FINDINGS: Study Quality: [...] By: Vonnie Helton MD 05/07/2024 8:41:23 AM GEOPHYSICAL PROSPECTING SURVEYOR Vonnie Helton MD [facility] PROCEDURES Final Result from Last 3 Months Insurance [facility] MEDICARE ADVANTAGE Care Teams Commercial Art Instructor Relationship Specialty Start Date End Date Erik Hyatt MD [address] [facility] [address] [address] PCP - General Family Practice 09/11/23
--- OUTSIDE RECORDS SUMMARY | 2024-05-31 13:38 | XMS_ITS | Encounter Summary ---
Author Organization [facility] Address [address] [place] [address] Care Team Providers Care Learning Design Specialist Name Role Phone German Smith MD Primary Care Provider [phone] Encounter Details Date Type Department Care Team (Late st Contact Info) Description 10/25/2021 Lab Requisition [facility] [address] [place] [address] Tha Horton MD [facility] [address] [address] Other pancytopenia Social History Tobacco Use Types Packs/Day Years Used Date Smoking Tobacco: Never Assessed Sex and Gender Information Value Date Recorded Sex Assigned at Not on file Gender Identity Not on file Sexual Orientation Not on file documented as of this encounter Plan of Treatment Not on file documented as of this encounter Procedures Procedure Name Priority Date/Time Associated Diagnosis Comments FLOW CYTOMETRY BONE MARROW Routine 10/25/2021 9:30 AM CDT Other pancytopenia documented in this encounter Results * FLOW CYTOMETRY BONE MARROW (10/25/2021 9:30 AM CDT) Case Report Flow Cytometry Case: [id number] Authorizing Provider: Tha Horton MD Collected: 10/25/2021 09:30 AM Ordering Location: [facility] Care Pathology Lab Received: 10/25/2021 04:47 PM Pathologist: Flora Scott Mai, DO Specimen: Bone Marrow, LEFT 10/25/2021 6:40 PM CDT [facility] Final Diagnosis Bone marrow, flow cytometric immunophenotypic analysis: - Immature B-cell population (5.6% of events) with features of hematogones - No clonal B-cell population or increase in blasts - See interpretation 10/25/2021 6:40 PM [facility] PATHOLOGY LAB Flow Cytometry Interpretation The bone marrow specimen has a viability of 94%. Within the lymphocyte gate, there is no monotypic B-cell population identified (kappa: lambda ratio = 2.1:1). By CD33/CD34, 3.4% of all events analyzed in the dim CD45 region are blasts. By CD10/CD19, 5.6% of events are immature B cells which acquire CD20 suggestive of hematogones. A bone marrow aspirate smear prepared from the flow cytometry specimen is reviewed for air quality engineer purposes. The sample is spiculated and cellular. The bone marrow aspirate specimen shows an immature B-cell population comprising 5.6% of events with an immunophenotypic profile suggestive of hematogones. There is no evidence of involvement by non-Hodgkin lymphoma or a high-grade myeloid neoplasm. Correlation with clinical findings, the concurrent bone marrow core biopsy (ACCESSION NUMBER PENDING), and relevant cytogenetic/molecu lar studies is required. 10/25/2021 6:40 PM [facility] PATHOLOGY LAB Flow Cytometry Results Differential Result Comment Flow Cell Count /uL 69,600 Total Viability % 94.0 Lymphocytes % 28 Dim CD45 Region % 16 Monocytes % 24 Granulocytes % 32 10/25/2021 6:40 PM [facility] Reason for test Other pancytopenia 284.19 10/25/2021 6:40 PM [facility] PATH[facility] Client Specimen ID # [id number] 10/25/2021 6:40 PM [facility] Number of markers 10 were performed. A-2 Flow CD10 A-3 Flow CD13 A-5 Flow CD20 A-1 Flow CD5 A-4 Flow CD19 A-6 Flow CD33 A-7 Flow CD34 A-8 Flow CD45 A-9 [place]+CD19+ A-10 Lambda+CD19+ 10/25/2021 6:40 PM [facility] LAB Disclaimer Test performed at [facility], [address] [place] [address], [id number]. *The established laboratory minimum viability is 70%. Values below the minimum may result in the failure to find an abnormal population of cells. This test was developed and its performance characteristics determined by the Flow Cytometry Laboratory. It has not been cleared by the [place] Food and Drug Administration (FDA). The FDA has determined that such clearance or approval is not necessary. This test is used for clinical purposes. It should not be regarded as investigational or for research. This laboratory is regulated under the Clinical Laboratory Improvement Amendments of 1998 (CLIA) as a qualified to perform high complexity clinical testing. 10/25/2021 6:[address] [facility] PATHOLOGY LAB Embedded Images 6:[address] [facility] Pathology/Cytolo gy BONE MARROW SPECIMEN / Unknown 10/25/2021 9:30 AM CDT 10/25/2021 4:47 PM CDT Tha Horton MD LAB - PATHOLOGY/CYTO LOGY ORDERABLES Performing Organization Address City/State/[facility] Co de Phone Number [facility] PATHOLOGY LAB [address] [phone] documented in this encounter Visit Diagnoses Diagnosis Other pancytopenia (HCC) Other pancytopenia documented in this encounter Care Teams Learning Design Specialist Relationship Specialty Start Date End Date German Smith MD [address] [place] [address] PCP - General 09/26/21 documented as of this encounter
--- OUTSIDE RECORDS SUMMARY | 2024-05-31 13:38 | XMS_ITS | Encounter Summary ---
Author Organization [facility] Address [address] [place] [address] Care Team Providers Care Radiotelegrapher Name Role Phone German Smith MD Primary Care Provider [phone] Encounter Details Date Type Department Care Team (Late st Contact Info) Description 10/27/2021 Lab Requisition [facility] Care Pathology Lab [address] [place] [address] Tha Horton MD [facility] [address] [address] Illness, unspecified Social History Tobacco Use Types Packs/Day Years Used Date Smoking Tobacco: Never Assessed Sex and Gender Information Value Date Recorded Sex Assigned at Not on file Gender Identity Not on file Sexual Orientation Not on file documented as of this encounter Plan of Treatment Not on file documented as of this encounter Procedures Procedure Name Priority Date/Time Associated Diagnosis Comments BONE MARROW BIOPSY (STL) Routine 10/25/2021 9:52 AM CDT Illness, unspecified documented in this encounter Results * BONE MARROW BIOPSY (STL) (10/25/2021 9:52 AM CDT) Case Report Bone Marrow Patholog y Report Case: [id number] Authorizing Provider: Tha Horton MD Collected: 10/25/2021 09:52 AM Ordering Location: [facility] Care Pathology Lab Received: 10/27/2021 07:52 AM Pathologist: Flora Scott Mai, DO Specimens: A) - Bone Marrow Clot B) - Bone Marrow Core 10/28/2021 1:49 PM CDT [facility] Final Diagnosis Bone marrow, aspirate, clot section, and core biopsy: - Normocellular marrow with maturing trilineage hematopoiesis - Lymphoid aggregates with no diagnostic evidence of clonal B-cell or aberrant T-cell population - See description 10/28/2021 1:49 PM [facility] Comment The bone marrow specimen is normocellular for age with maturing trilineage hematopoiesis and no diagnostic evidence of lymphoma, a high-grade myeloid neoplasm, or significant dyspoiesis. Correlation with clinical findings and relevant cytogenetic/molecular testing is required. Case reviewed in intradepartmental consensus. 10/28/2021 1:49 PM [facility] Bone Marrow Aspirate Differential count (200 cells): 0.5% blasts, 37.5% maturing myeloid precursors, 42.5% erythroid progenitors, 5% monocytes, 6% eosinophils, 7.5% lymphocytes, 1% plasma cells. Myeloid/erythroid ratio= 1.1 The sample is spiculated and cellular. There is maturing trilineage hematopoeisis with decreased myeloid/erythroid ratio. Myeloid elements show complete maturation with no increase in blasts or dysplasia. Erythroid elements show occasional forms with irregular nuclear contours but no overt dysplasia. Megkaryocytes demonstrate a spectrum of morphology. Storage iron (by special stain): No stainable storage iron, however, the sample is suboptimal (aspiculate and hemodilute). Control is appropriately reactive. Sideroblastic iron (by special stain): No ring sideroblasts seen, however, sample is suboptimal 10/28/2021 1:49 PM [facility] Bone Marrow Core Biopsy and Clot Section Description The core biopsy is adequate with 1.1 cm of evaluable marrow. Cellularity is estimated at 10-30% with maturing trilineage hematopoiesis. Myeloid/erythroid ratio is reflective of the aspirate count. Myeloid elements show maturation into segmented neutrophils, no blast aggregates seen on routine stain. Erythroid elements show complete maturation with no significant abnormality. Megakaryocytes are focally present with no atypical clustering. There are scattered lymphoid aggregates composed of small mature cells. The lymphoid aggregates are interstitial. The clot section contains marrow particles with similar morphologic features to the core including small lymphoid aggregates. Provided iron staining of the core shows no stainable storage iron, however, the sample is decalcified. Immunohistochemical stains are performed on the core biopsy in the [facility] Department of Pathology, with appropriately reactive controls, and demonstrate the following: CD3: Highlights T cells including lymphocytes within the lymphoid aggregates CD20: Highlights B cells, including within the lymphoid aggregates CD5: Highlights T cells in similar proportion and distribution to CD3, no obvious coexpression in B cells CD10: Positive within granulocytes and stromal cells, no significant staining of the lymphoid aggregates BCL6: Positive in a minor subset of B cells, including a few rare cells within lymphoid aggregates Cyclin D1: Negative within lymphoid aggregates Bcl-2: Positive within the lymphoid aggregates, favor expression in T cells TdT: Highlights scattered immature B cells but these do not form any atypical clusters and are negative in the lymphoid aggregates (flow cytometry detected 5.6% hematogones) CD34: No increase in blasts (less than 2%) 10/28/2021 1:49 PM [facility] Flow Cytometry Summary [id number]: Immature B-cell population (5.6% of events) with features of hematogones. No clonal B-cell population or increase in blasts. 10/28/2021 1:49 PM [facility] Clinical History Pancytopenia. Splenomegaly (17.2 cm). History of cervical cancer. History of vitamin B12 deficiency. 10/28/2021 1:49 PM [facility] Materials Received Received are 19 slide(s) and 3 blocks (A1, A2, B1) labeled [id number] along with a copy of the outside pathology report. [place] [address]. All original materials are returned to the referring institution, along with a copy of our final report. 10/28/2021 1:49 PM [facility] Disclaimer The performance characteristics of all immunohistochemical and indirect immunofluorescence stains (if any) cited in this report were determined by the Histopathology Laboratory of [facility]. Some of these tests were developed by our own laboratory and have not been cleared or approved by the US Food and Drug Administration. The FDA does not require this test to go through premarket FDA review. These tests are used for clinical purposes. They should not be regarded as investigational or for research. This laboratory is certified under the Clinical Laboratory Improvement Amendments (CLIA) as qualified to perform high complexity clinical laboratory testing. This case has been personally reviewed and interpreted by the attending (teaching) pathologist. 10/28/2021 1:49 PM CDT [facility] Embedded Images 10/28/2021 1:49 PM CDT [facility] Pathology/Cytology BONE MARROW SPECIMEN / Unknown 10/25/2021 9:52 AM CDT 10/27/2021 7:52 AM CDT Miscellaneous samples (specimen) BONE MARROW SPECIMEN / Unknown 10/25/2021 9:52 AM CDT 10/27/2021 7:52 AM CDT Tha Horton MD LAB - PATHOLOGY/CYTO LOGY ORDERABLES Performing Organization Address City/State/[facility] Co de Phone Number [facility] PATHOLOG[facility] LAB [address] [phone] documented in this encounter Visit Diagnoses Diagnosis Illness, unspecified documented in this encounter Care Teams Radiotelegrapher Relationship Specialty Start Date End Date German Smith MD [address] [place] [phone] PCP - General 09/26/21 documented as of this encounter
--- OUTSIDE RECORDS SUMMARY | 2024-05-31 13:38 | XMS_ITS | Clinical Summary ---
Author Organization [facility] Address [address] [place] [address] Care Team Providers Care Hydraulic Specialist Name Role Phone Erik Hyatt MD Primary Care Provider Allergies Active Allergy Reactions Criticality Noted Date Comments Adhesive Tape-Silicones Rash,Itching Low 08/23/2023 Medications cilostazoL (PLETAL) 100 mg Tablet Take 100 mg by mouth. Active citalopram (CeleXA) 20 mg tablet Take 20 mg by mouth daily at bedtime. Active pravastatin (PRAVACHOL) 80 mg tablet Take 80 mg by mouth daily with supper. Active warfarin (COUMADIN) 5 mg tablet Take 5 mg by mouth daily. Active gabapentin (NEURONTIN) 100 mg capsule Take 100 mg by mouth 3 times daily. Active traZODone (DESYREL) 50 mg tablet Take 50 mg by mouth daily at bedtime. Active ferrous gluconate 324 mg (38 mg iron) tablet Take 324 mg by mouth. Active PEG-Electrolyte Soln (NULYTELY) 420 g Recon Soln 240 ML ORALLY EVERY 10 MINUTES TAKE DIRECTED MAY SUBSTITUTE ANY PEG PREP Active nitrofurantoin (MACROBID) 100 mg capsule Take 100 mg by mouth 2 times daily. Active solifenacin (VESICARE) 5 mg Tablet Take by mouth daily. Active escitalopram oxalate (LEXAPRO) 20 mg tablet Take 20 mg by mouth daily. Active Active Problems Problem Noted Date Diagnosed Date Pancytopenia 09/19/2021 Lymphadenopathy 09/19/2021 Encounters Date Type Department Care Team Description 05/30/2024 12:00 PM CDT Office Visit [facility] Oncology and Hematology - [place] [address] [place] [phone] Mauricio Dao MD Pancytopenia (CMS/HCC) (Primary Dx) 05/26/[address] [facility] On[facility] Hematology [place] [address] [place] [phone] Mauricio Dao MD 04/22/2024 External Device Data STL ABSTRACTION Provider, Abstract 03/27/2024 External Device Data STL ABSTRACTION Provider, Abstract 03/26/2024 External Device Data STL ABSTRACTION Provider, Abstract 03/25/2024 External Device Data STL ABSTRACTION Provider, Abstract from Last 3 Months Family History Medical History Relation Name Comments Cancer Brother Cancer Father Heart Disease Father Cancer Mother Relation Name Status Comments Brother Alive Father Mother Sister 1 Alive Sister 2 Alive Sister 3 Alive Social History Tobacco Use Types Packs/Day Years [...] (154 lb) 05/30/2024 12:08 PM CDT Height 167.6 cm (5' 6 ) 11/02/2021 1:34 PM CDT Body Mass Index 24.86 11/02/2021 1:34 PM CDT Plan of Treatment Upcoming Encounters Date Type Department Care Team (Late st Contact Info) Description 06/30/2024 9:30 AM CDT Office Visit [facility] Oncology and Hematology - [place] [address] [place] [address] Chelsea Gordon MD [address] [place] [address] Health Maintenance Due Date Last Done Comments DTAP/TDAP/TD VACCINES (1 - Tdap) 1964 PNEUMOCOCCAL VACCINE 50+ YEARS (1 of 2 - PCV) 06/06/18 65 ZOSTER VACCINE (1 of 2) 1964 OSTEOPOROSIS SCREENING 2010 RSV VACCINE (60+ or ) (1 - 1-dose 75+ series) 2020 INFLUENZA VACCINE (#1) 2023 [place] Prev entative Visit/Annual Wellness Visit 03/05/2024 COLORECTAL SCREENING Discontinued 09/23/2021 Colorectal Cancer Screening Discontinued FIT-DNA Q 3 years Discontinued FIT/FOBT Q 1 year Discontinued Flex Sig/CT Colonography Q 5 years Discontinued Procedures Procedure Name Priority Date/Time Associated Diagnosis Comments CBC WITH AUTODIFFERENTIAL Routine 2024 12:56 PM CDT COLONOSCOPY REPORT Routine 09/23/2021 from Last 3 Months or Most Recently Relevant to Health Maintenance Results * CBC WITH AUTODIFFERENTIAL (05/23/2024 12:56 PM CDT) Blood Mauricio Dao MD HEMATOLOGY ORDERABLES Final Res ult * COLONOSCOPY REPORT (09/23/2021) us Abstract Provider GI PROCEDURE ORDERABLES Final Result from Last 3 Months or Most Recently Relevant to Health Maintenance [place] [address] [place] [address] [place] [id number] Care Teams Hydraulic Specialist Relationship Specialty Start Date End Date Erik Hyatt MD [address] [place] [address] PCP - General Family Practice 09/19/21
== END 2024-05-31 12:18 | disposition home or self-care (01) ==
LOC: ANHLAB 07-03 12:17
PROVIDERS: PCP Family Medicine; Visit Provider Internal Medicine Hematology & Oncology
DX: C92.10 Chronic myeloid leukemia, BCR/ABL-positive, not having achieved remission (principal); D61.818 Other pancytopenia
CPT/HCPCS: 36415; 85014; 85018; 86850; 86900; 86901; 86923

== ENCOUNTER 2024-06-02 07:34 | Outpatient (RCR) | payer MEDICARE, SELFPAY ==
[2024-05-31 13:52] LABS: Hematocrit 22.3 % (37.0-47.0)
[2024-05-31 14:05] LABS: Hemoglobin 6.8 g/dL (12.0-15.0)
[2024-06-02] VITALS (7 sets, daily range): BP systolic 125–145; BP diastolic 44–66; PULSE 72–84; RESP 16–18; TEMP 36.5–36.9; O2SAT 98–100
[2024-06-02] MEDS: ACETAMINOPHEN 325 MG TABLET 650 MG PO (08:04)
[2024-06-02] MEDS: diphenhydrAMINE HCl CAP 25 MG CAPSULE PO (08:05)
[2024-06-02] MEDS: FUROSEMIDE INJ 40 MG/4 ML VIAL 20 MG IV PUSH (09:47)
== END 2024-08-31 23:59 | disposition home or self-care (01) ==
LOC: ANHCPCTRAN 07:34
PROVIDERS: PCP Family Medicine; Visit Provider Internal Medicine Hematology & Oncology
DX: D61.818 Other pancytopenia (principal)
CPT/HCPCS: 36430; 96374; A9270; J1940; P9016

== ENCOUNTER 2024-06-19 00:52 | Day surgery (SDC) | payer MEDICARE, SELFPAY ==
[2024-06-18 14:58] VITALS: BMI 24.7
--- NOTE | ~2024-06-19 | BM_ITS ---
EXAMINATION: CCL bone marrow asp w bx diag ORDER COMPLETED DATE: 06/19/2024 10:29 INDICATION: Pancytopenia TECHNIQUE: A time-out was performed to verify the patient's name, date of , and procedure to b e performed. The procedure including the risks and benefits was discussed with the patient. Risks dis cussed included bleeding, infection, nerve injury and allergic reaction. The patient understood the r isks and agreed to proceed. The skin overlying the right posterior iliac spine was prepped and draped in usual sterile fashion. Anesthetic was administered with 1% lidocaine subcutaneously. Moderate co nscious sedation was achieved with 50 mcg fentanyl IV and 1 mg of Versed IV. An 11 gauge needle was i nserted into the right ilium with fluoroscopic guidance. Bone marrow was aspirated. An 8 gauge needle was then inserted into the right ilium with fluoroscopic guidance. A core bone marrow biopsy was obt ained. The needle was removed and the entry site was cleaned and dressed. There were no immediate co mplications. A total of 17 fluoroscopic images were recorded. Fluoroscopy exposure time was 0.1 minut es. Total DAP was 491 mGycm^2 FINDINGS: Real-time fluoroscopy demonstrates the biopsy needle tip overlying the right posterior una c spine. IMPRESSION: 1. Successful fluoroscopic guided bone marrow aspiration. 2. Successful fluoroscopic guided bone marrow biopsy. Reviewed, dictated and finalized at location A.
--- OUTSIDE RECORDS SUMMARY | 2024-06-19 00:54 | XMS_ITS | Clinical Summary ---
Author Organization [facility] Address [address] [place] [address] Care Team Providers Care Dental Manager Name Role Phone Erik Hyatt MD Primary [...] Encounters Date Type Department Care Team Description 06/03/2024 Orders Only [facility] Oncology and Hematology - [place] [address] [place] [address] Mauricio Dao MD 06/02/2024 Abstract [facility] Oncology and Hematology [facility] [address] [place] [address] Mauricio Dao MD 05/30/2024 12:00 PM CDT Office Visit [facility] Oncology and Hematology [facility] [address] [place] [address] Mauricio Dao MD Pancytopenia (CMS/HCC) (Primary Dx) 05/26/2024 Orders Only [facility] Oncology and Hematology [facility] [address] [place] [address] Mauricio Dao MD 04/22/2024 External Device Data [...] [facility] [place] [address] [place] [address] Chelsea Gordon MD [address] [place] [address] Health Maintenance Due Date Last Done Comments DTAP/TDAP/TD VACCINES (1 - Tdap) 1964 PNEUMOCOCCAL VACCINE 50+ YEARS (1 of 2 - PCV) 06/06/18 65 ZOSTER VACCINE (1 of 2) 1964 OSTEOPOROSIS SCREENING 2010 RSV VACCINE (60+ or ) (1 - 1-dose 75+ series) 2020 INFLUENZA VACCINE (#1) 2023 COLORECTAL SCREENING Discontinued 09/23/2021 Colorectal Cancer Screening Discontinued FIT-DNA Q 3 years Discontinued FIT/FOBT Q 1 year Discontinued Flex Sig/CT Colonography Q 5 years Discontinued Procedures Procedure Name Priority Date/Time Associated Diagnosis Comments NM RBC LEUKOCYTES REDUCED Routine 2024 11:59 AM CDT HEMOGLOBIN AND HEMATOCRIT Routine 2024 8:00 AM CDT CBC WITH AUTODIFFERENTIAL Routine 2024 12:56 PM CDT COLONOSCOPY REPORT Routine 09/23/2021 from Last 3 Months or Most Recently Relevant to Health Maintenance Results * NM RBC LEUKOCYTES REDUCED (05/31/2024 11:59 AM CDT) us Mauricio Dao MD [facility] - LABORATORY Final Result * HEMOGLOBIN AND HEMATOCRIT (05/31/2024 8:00 AM CDT) Blood us Mauricio Dao MD HEMATOLOGY ORDERABLES Final Res ult * CBC WITH AUTODIFFERENTIAL (05/23/2024 12:56 PM CDT) Blood Mauricio Dao MD HEMATOLOGY ORDERABLES Final Res ult * COLONOSCOPY REPORT (09/23/2021) Abstract Provider GI PROCEDURE ORDERABLES Final Result from Last 3 Months or Most Recently Relevant to Health Maintenance Insurance [facility] [id number] Care Teams Dental Manager Relationship Specialty Start Date End Date Erik Hyatt MD [address] [facility] [place] [address] PCP - General Family Practice 09/19/21
--- OUTSIDE RECORDS SUMMARY | 2024-06-19 00:54 | XMS_ITS | Referral Summary ---
Author Organization [facility] Address [address] [place] [address] Care Team Providers Care Instructional Design Technologist Name Role Phone Erik Hyatt MD Primary Care Provider Encounters Date Type Department Care Team Description 06/18/[address] [facility] Medical Group Vascular at [address] [phone] Vonnie Helton MD Femoral artery aneurysm (Primary Dx); Other specified symptoms and signs involving the circulatory and respiratory systems 06/18/2024 10:30 AM CDT Office Visit [facility] Medical Group Vascular at [address] [phone] Aleah Boles NP 06/13/2024 11:30 AM CDT - 06/13/2024 11:59 PM CDT Hospital Encounter [address] [address] Femoral artery aneurysm Discharge Disposition: Discharge to home or self care 06/12/[address] [address] Olga Moody 05/14/[address] [facility] Medical Group Vascular at [address] [phone] Vonnie Helton MD Femoral artery aneurysm (Primary Dx) 05/14/2024 10:00 AM CDT Office Visit [facility] Group Vascular at [address] [phone] Aleah Boles NP Mixed hyperlipidemia (Primary Dx); Femoral artery aneurysm 05/06/2024 10:00 AM WOODWORKING MACHINE SETTER Ancillary Procedure [facility] Vascular and Vein Surgery at [address] [place] [address] Femoral artery aneurysm; Other specified symptoms and signs involving the circulatory and respiratory systems 05/06/2024 10:00 AM WOODWORKING MACHINE SETTER Ancillary Procedure [facility] Vascular and Vein Surgery at [address] [place] [phone] Femoral artery aneurysm 04/10/2024 Orders Only [facility] Vascular and Vein Surgery [address] [facility] [address] [place] [phone] Vonnie Helton MD Femoral artery aneurysm (Primary [...] (09/19/2023 12:50 PM CDT): CT scan from [facility] with concern for a left common femoral [...] on file Legal Sex Female 1:00 PM WOODWORKING MACHINE SETTER Gender Identity Not on file Sexual Orientation Not on file Last Filed Vital Signs Vital Sign Reading Time Taken Comments Blood Pressure 159/84 06/18/2024 11:07 AM CDT Pulse 69 06/18/2024 11:07 AM CDT Temperature - - Respiratory Rate - - Oxygen Saturation 98% 06/18/2024 11:07 AM CDT Inhaled Oxygen Concentration - - Weight 69.4 kg (153 lb) 06/18/2024 11:07 AM CDT Height 167.6 cm (5' 6 ) 06/18/2024 11:07 AM CDT Body Mass Index 24.69 06/18/2024 11:07 AM CDT Plan of Treatment Not on file Procedures Procedure Name Priority Date/Time Associated Diagnosis Comments CTA ABDOMINAL AORTA AND BILATERAL ILIOFEMORAL RUNOFF Schedule Routine, Read Routine (OP Routine) 06/13/2024 12:29 PM CDT Femoral artery aneurysm US TRELL Schedule Routine, Read Routine (OP Routine) 05/06/2024 11:03 AM WOODWORKING MACHINE SETTER Femoral artery aneurysm US DUPLEX SCAN AORTA, IVC ILIAC COMPLETE Schedule Routine, Read Routine (OP Routine) 05/06/2024 11:03 AM WOODWORKING MACHINE SETTER Femoral artery aneurysm Other specified symptoms and signs involving the circulatory and respiratory systems from Last 3 Months Results * CTA Abdominal Aorta And Bilateral Iliofemoral Runoff (06/13/2024 12:29 PM CDT) Anatomical Region Laterality Modality Body Bilateral Computed Tomogra phy 06/17/2024 3:53 PM CDT Narrative 06/17/2024 4:10 PM CDT EXAM DESCRIPTION: CTA ABDOMINAL AORTA AND BILATERAL ILIOFEMORAL RUNOFF REASON FOR STUDY: 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 Arterial images were obtained of the lower extremities. Images reviewed with soft tissue and bone windows. Reconstructed coronal and sagittal MPR images reviewed. All images stored on PACS. 3D MIP images rendered on scanning unit and reviewed at time of interpretation. Automated exposure control was used as a dose optimization technique for this examination. CONTRAST TYPE/DOSE: 125mL of IOVERSOL 350 MG IODINE/ML INTRAVENOUS SYRINGE injected via intravenous COMPARISON: 10/03/2023 CT arteriogram FINDINGS: VASCULATURE: ABDOMINAL AORTA: No dissection, aneurysm, intramural hematoma, rupture, or penetrating atherosclerotic ulcer. Aortic bifurcation graft identified appears patent with patent right and left limbs. The [place] right common iliac artery is patent with patent internal iliac. A left common iliac artery is occluded. The left internal iliac is patent distally. MESENTERIC/RENAL: No flowing limiting disease. Single bilateral renal arteries. No anatomic variation of the mesenteric vessels. RIGHT LOWER EXTREMITY VASCULATURE: The right common femoral artery is severely stenotic proximally. The distal graft anastomosis is patent. There is reconstitution of the profunda femoral artery. Continuous flow through the superficial femoral artery is demonstrated without high-grade stenosis. 50% stenosis through the adductor canal is noted. The distal popliteal is patent with 3 patent runoff vessels to the foot and ankle. LEFT LOWER EXTREMITY VASCULATURE: The left common femoral artery remains occluded. Rounded soft tissue density at the anastomosis is redemonstrated measuring 3.3 x 3.1 cm in maximum dimension, previously 2.8 by 3.6 cm. No increased induration or new flow channel identified. The left profunda femoral artery is patent via collateral flow. The left superficial femoral artery remains occluded with distal faint reconstitution of branch vessels. ABDOMEN/PELVIS: LOWER CHEST: No consolidation or effusion. Large hiatal hernia redemonstrated. LIVER: Normal size. 1.2 cm hypodensity medial segment left lobe suggesting small cyst and is unchanged. GALLBLADDER: Normally distended. Layering debris. Subtle adjacent induration may indicate wall thickening or inflammatory change new from previous. Please correlate clinically and with ultrasound if clinically warranted. BILE DUCTS: No intrahepatic or extrahepatic ductal dilatation. SPLEEN: Enlarged measuring 21 cm in cephalo caudad dimension and generally similar in appearance to previous. Curvilinear enhancement irregularities along the hilar region predominantly similar to previous and again likely related to arterial phase imaging differential. PANCREAS: No identified cystic or solid masses. No significant calcifications. No adjacent inflammation or peripancreatic fluid collections. Pancreatic duct not dilated. ADRENALS: Normal. KIDNEYS/URINARY TRACT: No identified cystic or solid masses. No cysts. No stones. No hydronephrosis or hydroureter. Symmetric enhancement. Normal bladder. GI: No dilated bowel loops. No obvious wall thickening. Normal appendix. No significant diverticular disease. PERITONEUM: Small volume ascites fluid in the pelvis is nonspecific. No loculated collections or free air. RETROPERITONEUM: No mass or adenopathy. REPRODUCTIVE: No significant abnormality. MUSCULOSKELETAL: No acute findings. OTHER: No other abnormality. IMPRESSION: Redemonstration of aortobifemoral graft with patent right and left limbs. Redemonstration of occlusion [place] left common iliac artery. Redemonstration of severe stenosis right common femoral artery. Redemonstration of occlusion left superficial femoral artery with distal reconstitution of branch vessels. Redemonstration of soft tissue density at the left common femoral artery anastomosis measuring up to 3.3 cm, previously 3.6 cm. 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 No increased induration or new flow channel identified. Gallbladder demonstrates layering debris with subtle adjacent induration which may indicate wall thickening or inflammatory change. Please correlate clinically and with ultrasound if clinically warranted. Splenomegaly with curvilinear enhancement along the hilar region likely related to arterial phase imaging differential. Small volume ascites fluid in the pelvis is nonspecific. THIS IS AN ELECTRONICALLY VERIFIED FINAL REPORT 06/17/2024 4:10 PM - Electronically signed by Nawaf Horn M.D. 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 Arterial images were obtained of the lower extremities. Images reviewedwith soft tissue and bone windows. Reconstructed coronal and sagittal MPRimages reviewed. All images stored on PACS. 3D MIP images rendered on scanning unit and reviewed at time of interpretation. Automated exposure controlwas used as a dose optimization technique for this examination. CONTRAST TYPE/DOSE: 125mL of IOVERSOL 350 MG IODINE/ML INTRAVENOUSSYRINGE injected via intravenous COMPARISON: 10/03/2023 CT arteriogram FINDINGS: VASCULATURE: ABDOMINAL AORTA: No dissection, aneurysm, intramural hematoma, rupture,or penetrating atherosclerotic ulcer. Aortic bifurcation graft identified appears patent with patent right andleft limbs. The [place] right common iliac artery is patent with patent internal iliac.A left common iliac artery is occluded. The left internal iliac is patent distally. MESENTERIC/RENAL: No flowing limiting disease. Single bilateral renal arteries. No anatomic variation of the mesenteric vessels. RIGHT LOWER EXTREMITY VASCULATURE: The right common femoral artery is severely stenotic proximally. Thedistal graft anastomosis is patent. There is reconstitution of the profundafemoral artery. Continuous flow through the superficial femoral artery is demonstrated without high-grade stenosis. 50% stenosis through theadductor canal is noted. The distal popliteal is patent with 3 patent runoffvessels to the foot and ankle. LEFT LOWER EXTREMITY VASCULATURE: The left common femoral artery remains occluded. Rounded soft tissue density at the anastomosis isredemonstrated measuring 3.3 x 3.1 cm in maximum dimension, previously 2.8 by 3.6 cm. No increased induration or new flow channel identified. The left profunda femoral artery is patent via collateral flow. The left superficial femoral artery remains occluded with distal faintreconstitution of branch vessels. ABDOMEN/PELVIS: LOWER CHEST: No consolidation or effusion. Large hiatal hernia redemonstrated. LIVER: Normal size. 1.2 cm hypodensity medial segment left lobesuggesting small cyst and is unchanged. GALLBLADDER: Normally distended. Layering debris. Subtle adjacent induration may indicate wall thickening or inflammatory change new from previous. Please correlate clinically and with ultrasound if clinically warranted. BILE DUCTS: No intrahepatic or extrahepatic ductal dilatation. SPLEEN: Enlarged measuring 21 cm in cephalo caudad dimension andgenerally similar in appearance to previous. Curvilinear enhancement irregularities along the hilar region predominantly similar to previous and again likely related to arterial phase imaging differential. PANCREAS: No identified cystic or solid masses. No significant calcifications. No adjacent inflammation or peripancreatic fluidcollections. Pancreatic duct not dilated. ADRENALS: Normal. KIDNEYS/URINARY TRACT: No identified cystic or solid masses. No cysts.No stones. No hydronephrosis or hydroureter. Symmetric enhancement. Normal bladder. GI: No dilated bowel loops. No obvious wall thickening. Normalappendix. No significant diverticular disease. PERITONEUM: Small volume ascites fluid in the pelvis is nonspecific. No loculated collections or free air. RETROPERITONEUM: No mass or adenopathy. REPRODUCTIVE: No significant abnormality. MUSCULOSKELETAL: No acute findings. OTHER: No other abnormality. IMPRESSION: Redemonstration of aortobifemoral graft with patent right and leftlimbs. Redemonstration of occlusion [place] left common iliac artery. Redemonstration of severe stenosis right common femoral artery. Redemonstration of occlusion left superficial femoral artery with distal reconstitution of branch vessels. Redemonstration of soft tissue density at the left common femoral artery anastomosis measuring up to 3.3 cm, previously 3.6 cm. 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 No increased induration or new flow channel identified. Gallbladder demonstrates layering debris with subtle adjacent induration which may indicate wall thickening or inflammatory change. Pleasecorrelate clinically and with ultrasound if clinically warranted. Splenomegaly with curvilinear enhancement along the hilar region likely related to arterial phase imaging differential. Small volume ascites fluid in the pelvis is nonspecific. THIS IS AN ELECTRONICALLY VERIFIED FINAL REPORT 06/17/2024 4:10 PM - Electronically signed by Nawaf Horn M.D. RB: ELAV Report ID: [id number] Reading Location: [place] [address] us Vonnie Helton MD IMG CT PROCEDURES Final Result * US TRELL (05/06/2024 11:03 AM WOODWORKING MACHINE SETTER) Anatomical Region Laterality Modality Vascular N/A Ultrasound 05/06/2024 9:51 AM WOODWORKING MACHINE SETTER Narrative 05/07/2024 10:15 AM WOODWORKING MACHINE SETTER Vascular & Vein Surgery [address] [place] [phone] Lower Extremity Arterial Doppler Report Patient Name: ESTRELLA ROBLES : 1945 Study Date: 05/06/2024 9:51:00 AM Gender: F Galley Worker: Dia Dotson RVT Location: [facility] Ref Provider: [...] mmHg Lt Brachial Pressure 137 mmHg Rt MENTAL HYGIENE CONSULTANT Pressure 130 mmHg Rt DPA Pressure 127 [...] By: Vonnie Helton MD 05/07/2024 9:29:05 AM WOODWORKING MACHINE SETTER Procedure Note Vonnie Helton MD - 05/07/2024 Vascular & Vein Surgery [address] [place] [address] Lower Extremity Arterial Doppler Report Patient Name: ESTRELAL ROBLES : 1945 Study Date: 05/06/2024 9:51:00 AM Gender: F Galley Worker: Dia Dotson RVT Location: [facility] Ref Provider: VONNIE HELTON Quality: Adequate Order Provider: VONNIE HELTON PROCEDURES: Arterial Report: Ankle - Brachial Index Doppler exam. 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 HISTORY: HLD. Former smoker. COMPARISONS: No previous exams. MEASUREMENTS: Right Value Left Value Rt Brachial Pressure 139 mmHg Lt Brachial Pressure 137 mmHg Rt MENTAL HYGIENE CONSULTANT Pressure 130 mmHg Rt DPA Pressure 127 [...] By: Vonnie Helton MD 05/07/2024 9:29:05 AM WOODWORKING MACHINE SETTER us Vonnie Helton MD IMG US PROCEDURES Final Result * US Duplex Scan Aorta, IVC Iliac Complete (05/06/2024 11:03 AM WOODWORKING MACHINE SETTER) Anatomical Region Laterality Modality Vascular N/A Ultrasound 05/06/2024 10:1 2 AM WOODWORKING MACHINE SETTER Narrative 05/07/2024 8:41 AM WOODWORKING MACHINE SETTER Vascular & Vein Surgery [facility] [place] [address] Abdominal Aortic Duplex Ultrasound Report Patient Name: ESTRELLA ROBLES : 1945 Study Date: 05/06/2024 10:12:35 AM Gender: F Galley Worker: Location: [facility] Ref Provider: VONNIE HELTON Quality: [...] Measurements Measurement Value Units Location/Type Ao-bifem Inflow [place] Artery PSV 140.00 cm/sec Anast Prx PSV 95.00 cm/sec BPG Prx PSV 142.00 cm/sec BPG Mid PSV 24.00 cm/sec Rt Limb Prx PSV 80.00 cm/sec Rt Limb Mid PSV 72.00 cm/sec Rt Limb Dst PSV 98.00 cm/sec Anast Dst PSV 142.00 cm/sec Outflow [place] Artery PSV 121.00 cm/sec Lt Limb Prx PSV 81.00 cm/sec Lt Limb Mid PSV 42.00 cm/sec Lt Limb Dst PSV 63.00 cm/sec Anast Dst PSV 116.00 cm/sec Outflow [place] Artery PSV 93.00 cm/sec FINDINGS: Study Quality: [...] By: Vonnie Helton MD 05/07/2024 8:41:23 AM WOODWORKING MACHINE SETTER Procedure Note Vonnie Helton MD - 05/07/2024 Vascular & Vein Surgery [address] [place] [id number] Abdominal Aortic Duplex Ultrasound Report Patient Name: ESTRELLA ROBLES : 1945 Study Date: 05/06/2024 10:12:35 AM Gender: F Galley Worker: Location: [facility] Ref Provider: VONNIE HELTON Quality: [...] Measurements Measurement Value Units Location/Type Ao-bifem Inflow [place] Artery PSV 140.00 cm/sec Anast Prx PSV 95.00 cm/sec BPG Prx PSV 142.00 cm/sec BPG Mid PSV 24.00 cm/sec Rt Limb Prx PSV 80.00 cm/sec Rt Limb Mid PSV 72.00 cm/sec Rt Limb Dst PSV 98.00 cm/sec Anast Dst PSV 142.00 cm/sec Outflow [place] Artery PSV 121.00 cm/sec Lt Limb Prx PSV 81.00 cm/sec Lt Limb Mid PSV 42.00 cm/sec Lt Limb Dst PSV 63.00 cm/sec Anast Dst PSV 116.00 cm/sec Outflow [place] Artery PSV 93.00 cm/sec FINDINGS: Study Quality: [...] By: Vonnie Helton MD 05/07/2024 8:41:23 AM WOODWORKING MACHINE SETTER Vonnie Helton MD [facility] PROCEDURES Final Result from Last 3 Months Insurance [facility] MEDICARE ADVANTAGE [facility] MEDICARE ADVANTAGE [facility] MEDICARE Address: [facility] [id number] [place] [phone] Care Teams Instructional Design Technologist Relationship Specialty Start Date End Date Erik [place] MD [address] [facility] [address] PCP - General Family Practice 09/11/23
--- OUTSIDE RECORDS SUMMARY | 2024-06-19 00:54 | XMS_ITS | Clinical Summary ---
Author Organization [facility] Office Center Address [address] [place] [address] Care Team Providers Care Process Excellence Manager Name Role Phone Erik Hyatt MD [...] (09/19/2023 12:50 PM CDT): CT scan from [facility] with concern for a left common femoral [...] Date Type Department Care Team Description 06/18/2024 10:30 AM CDT Office Visit [facility] Vascular at [address] [place] [address] Aleah Boles NP 06/18/2024 Orders Only [facility] Vascular at [address] [place] [address] Vonnie Helton MD Femoral artery aneurysm (Primary Dx); Other specified symptoms and signs involving the circulatory and respiratory systems 06/13/2024 11:30 AM CDT - 06/13/2024 11:59 PM CDT Hospital Encounter [facility] [address] [place] [address] Femoral artery aneurysm Discharge Disposition: Discharge to home or self care 06/12/2024 Telephone [facility] [address] [place] [address] HeidyJuneMilagros 05/14/2024 10:00 AM CDT Office Visit [facility] Vascular at [address] [place] [address] Aleah Boles NP Mixed hyperlipidemia (Primary Dx); Femoral artery aneurysm 05/14/2024 Orders Only [facility] Vascular at [address] [place] [address] Vonnie Helton MD Femoral artery aneurysm (Primary Dx) 05/06/2024 10:00 AM NUTRITION TECH Ancillary Procedure [facility] Vascular and Vein Surgery at [address] [place] [address] Femoral artery aneurysm; Other specified symptoms and signs involving the circulatory and respiratory systems 05/06/2024 10:00 AM NUTRITION TECH Ancillary Procedure [facility] Vascular and Vein Surgery at [address] [place] [address] Femoral artery aneurysm 04/10/2024 Orders Only [facility] Vascular and Vein Surgery [address] [address] Vonnie Helton MD Femoral artery aneurysm (Primary Dx) from Last 3 Months Social History Tobacco Use Types Packs/Day Years Used Date Smoking Tobacco: Unknown Tobacco Cessation:Counseling Given: Not Answered Comments Unknown Sex and Gender Information Value Date Recorded Sex Assigned at Not on file Legal Sex Female 1:00 PM NUTRITION TECH Gender Identity Not on file Sexual Orientation [...] 06/18/2024 11:07 AM CDT Plan of Treatment Health Maintenance Due Date Last Done Comments Depression Screening 1945 Fall Risk Assessment 1945 Hepatitis C Screening 1945 Osteoporosis Screening-Bone Density Scan 1945 DTaP/Tdap/Td Vaccine (1 - Tdap) 1956 Hepatitis B Screening 06/07/1963 Well Visit 65+ 2010 Pneumococcal vaccine 65+ (2 of 2 - PPSV23) 02/06/2021 12/12/2020 Covid-19 Vaccine (2023-2 5 season) 2023 11/29/2022, 12/11/2021, 01/02/2021, Additional history exists Influenza Vaccine (Season Ended) 2024 11/29/2022, 12/11/2021, 12/12/2020, Additional history exists Zoster Vaccine Completed 09/10/2022, 07/10/2022 Procedures Procedure Name Priority Date/Time Associated Diagnosis Comments CTA ABDOMINAL AORTA AND BILATERAL ILIOFEMORAL RUNOFF Schedule Routine, Read Routine (OP Routine) 06/13/2024 12:29 PM CDT Femoral artery aneurysm US TRELL Schedule Routine, Read Routine (OP Routine) 05/06/2024 11:03 AM NUTRITION TECH Femoral artery aneurysm US DUPLEX SCAN AORTA, IVC ILIAC COMPLETE Schedule Routine, Read Routine (OP Routine) 05/06/2024 11:03 AM NUTRITION TECH Femoral artery aneurysm Other specified symptoms and [...] with patent right and left limbs. [place] right common iliac artery is patent with [...] right and left limbs. 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 Redemonstration of severe [...] Nawaf Horn M.D. RB: ELVA Report ID: [id number] Reading Location: [id number] Procedure Note Nawaf Horn MD - 06/17/2024 [...] patent with patent right andleft limbs. [place] right common iliac artery is patent with [...] patent right and leftlimbs. 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 Redemonstration of severe [...] Nawaf Horn M.D. RB: ELVA Report ID: [id number] Reading Location: [place] [address] us Vonnie Helton MD IMG CT PROCEDURES Final Result * US TRELL (05/06/2024 11:03 AM NUTRITION TECH) Anatomical Region Laterality Modality Vascular N/A Ultrasound 05/06/2024 9:51 AM NUTRITION TECH Narrative 05/07/2024 10:15 AM NUTRITION TECH Vascular & Vein Surgery [facility] 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 HISTORY: HLD. Former smoker. COMPARISONS: No previous exams. 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 Pressure 130 mmHg Rt DPA Pressure 127 [...] By: Vonnie Helton MD 05/07/2024 9:29:05 AM NUTRITION TECH us Vonnie Helton MD IMG US PROCEDURES Final Result * US Duplex Scan Aorta, IVC Iliac Complete (05/06/2024 11:03 AM NUTRITION TECH) Anatomical Region Laterality Modality Vascular N/A Ultrasound 05/06/2024 10:1 2 AM NUTRITION TECH Narrative 05/07/2024 8:41 AM NUTRITION TECH Vascular & Vein Surgery [address] [place] [address] Abdominal Aortic Duplex Ultrasound Report Patient Name: ESTRELLA ROBLES : 1945 Study Date: 05/06/2024 10:12:35 AM Gender: F Reverse Unit Operator: Location: [facility] Ref Provider: VONNIE EHLTON Quality: Adequate Order Provider: VONNIE HELTON PROCEDURES: [...] Measurements Measurement Value Units Location/Type Ao-bifem Inflow [place] Artery PSV 140.00 cm/sec Anast Prx PSV 95.00 cm/sec BPG Prx PSV 142.00 cm/sec BPG Mid PSV 24.00 cm/sec Rt Limb Prx PSV 80.00 cm/sec Rt Limb Mid PSV 72.00 cm/sec Rt Limb Dst PSV 98.00 cm/sec Anast Dst PSV 142.00 cm/sec Outflow [place] Artery PSV 121.00 cm/sec Lt Limb Prx PSV 81.00 cm/sec Lt Limb Mid PSV 42.00 cm/sec Lt Limb Dst PSV 63.00 cm/sec Anast Dst PSV 116.00 cm/sec Outflow [place] Artery PSV 93.00 cm/sec FINDINGS: Study Quality: [...] By: Vonnie Helton MD 05/07/2024 8:41:23 AM NUTRITION TECH Procedure Note Vonnie Helton MD - 05/07/2024 Vascular & Vein Surgery [address] [place] [address] Abdominal Aortic Duplex Ultrasound Report Patient Name: ESTRELLA ROBLES : 1945 Study Date: 05/06/2024 10:12:35 AM Gender: F Reverse Unit Operator: SEAN Location: [facility] Provider: VONNIE HELTON Quality: Adequate Order Provider: [...] Measurements Measurement Value Units Location/Type Ao-bifem Inflow [place] Artery PSV 140.00 cm/sec Anast Prx PSV 95.00 cm/sec BPG Prx PSV 142.00 cm/sec BPG Mid PSV 24.00 cm/sec Rt Limb Prx PSV 80.00 cm/sec Rt Limb Mid PSV 72.00 cm/sec Rt Limb Dst PSV 98.00 cm/sec Anast Dst PSV 142.00 cm/sec Outflow [place] Artery PSV 121.00 cm/sec Lt Limb Prx PSV 81.00 cm/sec Lt Limb Mid PSV 42.00 cm/sec Lt Limb Dst PSV 63.00 cm/sec Anast Dst PSV 116.00 cm/sec Outflow [place] Artery PSV 93.00 cm/sec FINDINGS: Study Quality: [...] By: Vonnie Helton MD 05/07/2024 8:41:23 AM NUTRITION TECH [facility] Helton MD [facility] PROCED[facility] Final Result from Last 3 Months Insurance Member Subscriber Plan / Payer (Ef fective 2023-Present) Name:Estrella Robles Relation to Subscriber:Self Name:Estrella Robles Payer ID:[id number] (NAIC) Type:[facility] MEDICARE Address: [place] [phone] UHC MEDICARE ADVANTAGE Care Teams Process Excellence Manager Relationship Specialty Start Date End Date Erik Hyatt MD [address] [facility] [address] KATE [address] [place] [address] PCP - General Family Practice 09/11/23
--- OUTSIDE RECORDS SUMMARY | 2024-06-19 00:54 | XMS_ITS | Encounter Summary ---
Author Organization [facility] Address [address] [place] [address] Care Team Providers Care Radio News Anchor Name Role Phone German Smith MD Primary Care Provider [phone] Encounter Details Date Type Department Care Team (Late st Contact Info) Description 10/25/2021 Lab Requisition [facility] Care Pathology Lab [address] [place] [address] Tha Horton MD [facility] [address] [address] Other pancytopenia Social History Tobacco Use Types Packs/Day Years Used Date Smoking Tobacco: Never Assessed Comments Unknown Sex and Gender Information Value Date Recorded Sex Assigned at Not on file Legal Sex Female 7:55 AM CDT Gender Identity Not on file Sexual [...] AM CDT) Case Report Flow Cytometry Case: [id number] Authorizing Provider: Tha Horton MD Collected: 10/25/2021 09:30 AM Ordering Location: [facility] Care Pathology Lab Received: 10/25/2021 04:47 PM Pathologist: Flora Scott Mai, DO Specimen: Bone Marrow, LEFT 10/25/2021 6:40 PM CDT [facility] PATHOLOGY LAB Final Diagnosis Bone marrow, flow cytometric immunophenotypic analysis: - Immature B-cell population (5.6% of events) with features of hematogones - No clonal B-cell population or increase in blasts - See interpretation 10/25/2021 6:40 PM [facility] PATHOLOGY LAB Flow Cytometry Interpretation The bone [...] the flow cytometry specimen is reviewed for quality assurance assessor purposes. The sample is spiculated and cellular. [...] lar studies is required. 10/25/2021 6:40 PM [facility] PATHOLOGY LAB Flow Cytometry Results Differential Result Comment Flow Cell Count /uL 69,600 Total Viability % 94.0 Lymphocytes % 28 Dim CD45 Region % 16 Monocytes % 24 Granulocytes % 32 10/25/2021 6:40 PM [facility] PATHOLOGY LAB Reason for test Other pancytopenia 284.19 10/25/2021 6:40 PM [facility] PATHOLOGY LAB Client Specimen ID # [id number] 10/25/2021 6:40 PM [facility] PATHOLOGY LAB Number of markers 10 were performed. A-2 Flow CD10 A-3 Flow CD13 A-5 Flow CD20 A-1 Flow CD5 A-4 Flow CD19 A-6 Flow CD33 A-7 Flow CD34 A-8 Flow CD45 A-9 Radisson+CD19+ A-10 Lambda+CD19+ 10/25/2021 6:40 PM [facility] PATHOLOGY LAB Disclaimer Test performed at [facility], [address] [place], [place], [address]. *The established laboratory minimum viability is 70%. [...] complexity clinical testing. 10/25/2021 6:40 PM CDT [facility] PATHOLOGY LAB Embedded Images 6:40 PM CDT [facility] PATHOLOGY LAB Pathology/Cytolo gy BONE MARROW SPECIMEN / Unknown 10/25/2021 9:30 AM CDT 10/25/2021 4:47 PM CDT Tha Horton MD LAB - PATHOLOGY/CYTOLOGY ORDERAB LES Final Result Performing Organization Address City/State/[facility] Co de Phone Number [facility] PATHOLOGY LAB [address] [phone] documented in this encounter Visit Diagnoses Diagnosis Other pancytopenia (HCC) Other pancytopenia documented in this encounter Care Teams Radio News Anchor Relationship Specialty Start Date End Date German Smith MD [address] [place] [address] PCP - General 09/26/21 documented as of this encounter
--- OUTSIDE RECORDS SUMMARY | 2024-06-19 00:54 | XMS_ITS | Clinical Summary ---
Author Organization [facility] Address [address] [place] [address] Care Team Providers Care Money Counter Name Role Phone German Smith MD Primary Care Provider Source Comments [facility],non-owned Affiliates and Associated Physician Practices is amultiple site organization consisting of ambulatory clinics and hospital sitesin [place], [place]. This disclosure is being madepursuant to the Care Everywhere program and may not contain all information available regarding this patient. Last updated 17.[facility] My [employer] Social History Tobacco Use Types Packs/Day Years [...] VACCINE ( - 2023-2 5 season) 2023 DEPRESSION SCREENING 03/05/2024 MEDICARE AWV CALENDAR YEAR 2024 INFLUENZA VACCINE (Season Ended) 2024 HEPATITIS B VACCINE Aged Out No [...] on patient's age to complete this topic Insurance [facility] MANAGED MEDICARE ADV [facility] MEDICARE Care Teams Money Counter Relationship Specialty Start Date End Date German Smith MD [address] [place] [address] PCP - General 09/26/21
--- OUTSIDE RECORDS SUMMARY | 2024-06-19 00:54 | XMS_ITS | Encounter Summary ---
Author Organization [facility] Address [address] [place] [address] Care Team Providers Care Rock Picker Name Role Phone German Smith MD Primary Care Provider [phone] Encounter Details Date Type Department Care Team (Late st Contact Info) Description 10/27/2021 Lab Requisition [facility] Care Pathology Lab [address] [place] [address] Tha Horton MD [facility] [address] [address] Illness, unspecified Social History Tobacco [...] Report Bone Marrow Patholog y Report Case: [id number] Authorizing Provider: Tha Horton MD Collected: 10/25/2021 09:52 AM Ordering Location: [facility] Care Pathology Lab Received: 10/27/2021 07:52 AM Pathologist: Flora Scott Mai, DO Specimens: A) - Bone Marrow Clot B) - Bone Marrow Core 10/28/2021 1:49 PM CDT [facility] PATHOLOGY LAB Final Diagnosis Bone marrow, aspirate, clot section, and core biopsy: - Normocellular marrow with maturing trilineage hematopoiesis - Lymphoid aggregates with no diagnostic evidence of clonal B-cell or aberrant T-cell population - See description 10/28/2021 1:49 PM [facility] PATHOLOGY LAB Comment The bone marrow specimen is normocellular for age with maturing trilineage hematopoiesis and no diagnostic evidence of lymphoma, a high-grade myeloid neoplasm, or significant dyspoiesis. Correlation with clinical findings and relevant cytogenetic/molecular testing is required. Case reviewed in intradepartmental consensus. 10/28/2021 1:49 PM [facility] PATHOLOGY LAB Bone Marrow Aspirate Differential count [...] however, sample is suboptimal 10/28/2021 1:49 PM [facility] PATHOLOGY LAB Bone Marrow Core Biopsy and [...] performed on the core biopsy in the [facility] Department of Pathology, with appropriately reactive controls, [...] blasts (less than 2%) 10/28/2021 1:49 PM [facility] PATHOLOGY LAB Flow Cytometry Summary [id number]: Immature B-cell population (5.6% of events) with features of hematogones. No clonal B-cell population or increase in blasts. 10/28/2021 1:49 PM [facility] PATHOLOGY LAB Clinical History Pancytopenia. Splenomegaly (17.2 cm). History of cervical cancer. History of vitamin B12 deficiency. 10/28/2021 1:49 PM [facility] PATHOLOGY LAB Materials Received Received are 19 slide(s) and 3 blocks (A1, A2, B1) labeled [id number] along with a copy of the outside pathology report. [place] [address]. All original materials are returned to the referring institution, along with a copy of our final report. 10/28/2021 1:49 PM [facility] PATHOLOGY LAB Disclaimer The performance characteristics of all immunohistochemical and indirect immunofluorescence stains (if any) cited in this report were determined by the Histopathology Laboratory of [facility]. Some of these tests were developed [...] attending (teaching) pathologist. 10/28/2021 1:49 PM CDT [facility] PATHOLOGY LAB Embedded Images 10/28/2021 1:49 PM CDT [facility] PATHOLOGY LAB Pathology/Cytology BONE MARROW SPECIMEN / Unknown 10/25/2021 9:52 AM CDT 10/27/2021 7:52 AM CDT Miscellaneous samples (specimen) BONE MARROW SPECIMEN / Unknown 10/25/2021 9:52 AM CDT 10/27/2021 7:52 AM CDT us Tha Horton MD LAB - PATHOLOGY/CYTOLOGY ORDERAB LES Final Result Performing Organization Address City/State/[facility] Co de Phone Number [facility] PATHOLOGY LAB [address] [phone] documented in this encounter Visit Diagnoses Diagnosis Illness, unspecified documented in this encounter Care Teams Rock Picker Relationship Specialty Start Date End Date German Smith MD [address] [place] [address] PCP - General 09/26/21 documented as of this encounter
--- OUTSIDE RECORDS SUMMARY | 2024-06-19 00:55 | XMS_ITS | Encounter Summary ---
Author Organization [facility] Healthcare Address [address] [place] [address] Care Team Providers Care Bond Trader Name Role Phone Erik Hyatt MD Primary Care Provider Reason for Referral * Diagnostic Imaging (Routine) - Pending Review Specialty Diagnoses / Procedures Referred By Maritza t Referred To Contact Diagnoses Femoral artery aneurysm Other specified symptoms and signs involving the circulatory and respiratory systems Procedures US Duplex Scan Aorta, IVC Iliac Complete Ryan Helton MD [address] [facility] [address] KATE [address] [place] [address] Phone: tel: fax: [facility] Medical [facility] Vascular and Vein Surgery at [address] [place] [address] Phone: tel: fax: Referral ID Status Reason Start Date Expiration Date V isits Requested Visits Authorized [id number] Pending Review 06/18/2024 07/18/2025 1 1 * Diagnostic Imaging (Routine) - Pending Review Specialty Diagnoses / Procedures Referred By Contac t Referred To Contact Diagnoses Femoral artery aneurysm Procedures US Arterial Duplex Lower Extremity Left Limited Ryan Helton MD [address] [facility] [address] [place] [address] Phone: tel: fax: [facility] Medical [facility] Vascular and Vein Surgery at [address] [place] [address] Phone: tel: fax: Referral ID Status Reason Start Date Expiration Date V isits Requested Visits Authorized [id number] Pending Review 06/18/2024 07/18/2025 1 1 * Diagnostic Imaging (Routine) - Pending Review Specialty Diagnoses / Procedures Referred By Contac t Referred To Contact Diagnoses Femoral artery aneurysm Procedures US TRELL Ryan Helton MD [address] [facility] [address] [place] [address] Phone: tel: fax: [facility] Medical Group Vascular and Vein Surgery at [address] [place] [address] Phone: tel: fax: Referral ID Status Reason Start Date Expiration Date V isits Requested Visits Authorized [id number] Pending Review 06/18/2024 07/18/2025 1 1 Encounter Details Date Type Department Care Team (Late st Contact Info) Description 06/18/2024 Orders Only [facility] Medical Group Vascular at [address] [place] [phone] Ryan Helton MD [address] [facility] [address] [place] [address] Femoral artery aneurysm (Primary Dx); Other specified symptoms and signs involving the circulatory and respiratory systems Social History Tobacco Use Types Packs/Day Years Used Date Smoking Tobacco: Unknown Comments Unknown Sex and Gender Information Value Date Recorded Sex Assigned at Not on file 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 Gender Identity Not on file Sexual Orientation Not on file documented as of this encounter Plan of Treatment Scheduled Orders Name Type Priority Associated Diagnoses Orde r Schedule US TRELL Imaging Schedule Routine , Read Routine (OP Routine) Femoral artery aneurysm Expected: 12/18/2024, Expires: 12/18/2025 US Arterial Duplex Lower Extremity Left Limited Imaging Schedule Routine, Read Routine (OP Routine) Femoral artery aneurysm Expected: 12/18/2024, Expires: 12/18/2025 US Duplex Scan Aorta, IVC Iliac Complete Imaging Schedule Routine, Read Routine (OP Routine) Femoral artery aneurysm Other specified symptoms and signs involving the circulatory and respiratory systems Expected: 12/18/2024, Expires: 12/18/2025 documented as of this encounter Visit Diagnoses Diagnosis Femoral artery aneurysm- Primary Aneurysm of artery of lower extremity Other specified symptoms and signs involving the circulatory and respiratory systems documented in this encounter Care Teams Bond Trader Relationship Specialty Start Date End Date Erik Hyatt MD [address] [facility] 2[facility] [address] [address] PCP - General Family Practice 09/11/23 documented as of this encounter
--- OUTSIDE RECORDS SUMMARY | 2024-06-19 00:55 | XMS_ITS | Encounter Summary ---
Author Organization [facility] Healthcare Address [address] [place] [address] Care Team Providers Care Technical Project Manager Name Role Phone Erik Hyatt MD Primary Care Provider Reason for Visit * Reason Comments Follow-up 1 mo f/u - Femoral A rtery AneurysmHx - ABF BPG (20 yrs ago) Encounter Details Date Type Department Care Team (Late st Contact Info) Description 06/18/2024 10:30 AM CDT Office Visit [facility] Medical Group Vascular at [address] [place] [address] Aleah Boles, PRODUCTION LEAD [address] [facility] [address] [address] Social History Tobacco Use Types Packs/Day Years Used Date Smoking Tobacco: Unknown Comments Unknown Sex and Gender Information Value Date Recorded Sex Assigned at Not on file 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
[2024-06-19 08:03] VITALS: BP 134/57; PULSE 61; RESP 13; TEMP 36.7; O2SAT 100
[2024-06-19 08:26] LABS: INR 1.1; Prothrombin Time 14.4 Seconds (11.1-14.7)
[2024-06-19 08:49] LABS: Basophils Percent Auto 0.3 % (0.2-1.2); Eosinophils Absolute Auto 0.1 K/mm3 (0-0.3); Eosinophils Percent Auto 2.1 % (0-4.4); Hematocrit 32.5 % (37.0-47.0); Hemoglobin 10.1 g/dL (12.0-15.0); Immature Granulocyte Absolute 0.01 K/mm3 (0.00-0.031); Immature Granulocyte Percent A 0.3 % (0-0.5); Immature Platelet Fraction Pct 1.9 % (0.9-11.2); Lymphocytes Absolute Auto 1.45 K/mm3 (0.9-3.2); Mean Corpuscular HGB Conc 31.1 g/dl (32-36); Mean Corpuscular Hemoglobin 32.7 pg (26-34); Mean Corpuscular Volume 105.2 fl (80-100); Mean Platelet Volume 8.9 fl (7.4-10.4); Monocytes Absolute Auto 0.2 K/mm3 (0.1-0.6); Monocytes Percent Auto 8.3 % (2.6-8.5); Neutrophils Absolute Auto 1.1 K/mm3 (1.3-6.7); Platelet Count Result 66 k/mm3 (150-375); Red Blood Count 3.09 M/mm3 (4.2-5.4); Red Cell Distribution Width 16.8 % (11.5-14.5); White Blood Count 2.9 K/mm3 (4.5-10.0)
[2024-06-19 09:27] LABS: Macrocytosis 1+ (NORMAL); Platelet Estimate Decreased (Adequate); Schistocytes None Seen
--- NOTE | 2024-06-19 09:40 | WPDMODSED ---
Moderate Sedation Note-Pt Data Patient Data Diagnosis: pancytopenia Present Complaint: pancytopenia Procedure to be performed/Plan: bone marrow biopsy Allergies Allergy/AdvReac Type Severity Reaction Status Date / Time latex Allergy Unknown Rash Verified 06/18/24 14:51 adhesive tape Allergy Rash Verified 06/18/24 14:51 Home Medications ?Medication ?Instructions ?Recorded ?Confirmed ?Type cholecalciferol (vitamin D3) 50 50 mcg PO DAILY #1 cap 10/11/21 06/18/24 Rx mcg (2,000 unit) capsule ferrous gluconate 324 mg (36 mg 324 mg PO DAILY 10/24/21 06/18/24 History iron) tablet trazodone 50 mg tablet 50 - 100 mg (1 - 2 x 50 mg) PO QHS 08/21/22 06/18/24 Rx PRN insomnia #180 tabs cyanocobalamin (vitamin B-12) 1,000 mcg PO EVERY OTHER DAY 12/08/22 06/18/24 History 1,000 mcg tablet peg 400-propylene glycol (PF) 0.4 1 drp EACH EYE BID DRY EYES 12/08/22 06/18/24 History %-0.3 % eye drops in a dropperette (Systane (PF)) tramadol 50 mg tablet 50 mg PO Q6H PRN pain #20 tabs 12/11/22 06/18/24 Rx warfarin 5 mg tablet 5 mg PO DAILY #100 tabs 11/06/23 06/18/24 Rx warfarin 2 mg tablet 2 mg PO DAILY #90 tabs 01/18/24 06/18/24 Rx warfarin 1 mg tablet 6 mg PO .every other day 02/18/24 06/18/24 History warfarin 1 mg tablet 1 mg PO DAILY #100 tabs 02/22/24 06/18/24 Rx pravastatin 80 mg tablet 80 mg PO DAILY #100 tabs 03/11/24 06/18/24 Rx escitalopram oxalate 20 mg tablet 20 mg PO DAILY #90 tabs 03/26/24 06/18/24 Rx (Lexapro) gabapentin 100 mg capsule 100 mg PO TID PRN nerve pain #300 04/15/24 06/18/24 Rx caps cilostazol 100 mg tablet 100 mg PO DAILY #100 tabs 06/09/24 06/18/24 Rx Sedation/Anesthesia: No previous sedation/anesthesia problems (including family history). PMFSH Past Medical History Medical History Abdominal or pelvic swelling, mass, or lump, left lower quadrant Abscess of groin, left Depression Femoral artery aneurysm GERD without esophagitis History of cervical cancer HTN (hypertension), benign HZV (herpes zoster virus) post herpetic neuralgia Long-term (current) use of anticoagulants, INR goal 2.0-3.0 Mass of soft tissue of pelvis Mixed hyperlipidemia Parkinsons disease Personal history of other venous thrombosis and embolism Surgical History Surgical History H/O colonoscopy (~06/07/15) hx of polyps, Dr Duarte H/O tubal ligation History of left lower extremity amputation History of left lower limb amputation (~1996) Hx of bilateral cataract extraction Hx of hernia repair S/P breast biopsy, bilateral S/P dilation and curettage S/P removal of left ovary S/P wrist surgery Family History Family History Sibling Family history of thyroid disease Family history of cataracts Family history of diabetes mellitus in first degree relative Diabetes mellitus Depression Grandparent Family history of malignant neoplasm of cervix Cerebrovascular accident Mother Family history of Hodgkin's lymphoma Patient's mother is , Onset Age: 74 Family history of lymphoma Depression Father Family history of cardiovascular disease Social History Social History Social History: . Lives in her own home in [place]. One son who will make medical decisions for her when needed. She wishes to be DNR. 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 Smoking packs per day: 0.5 Smoking cigarettes per day: 10.0 Years smoked: 10 Smoking pack-years: 5.00 Smoking status: Former smoker Tobacco type: cigarettes Smoking end date: 03/05/97 Alcohol intake: never Substance use: never Substance use type: does not use Lack of Transportation: No Lack of Food: Never True Current Housing: I Have Housing Concerned About Future Housing: No Difficulty Paying Gas/Electric Bills: YES Difficulty Paying for Meds: No Currently Unemployed: No Education: Trade/Vocational Certificate Difficulty w/ Childcare or Family Care: No Living arrangements: with family Occupation/Education: retired Gender identity (if verbalized by the patient): Female Sexual Orientation (if Verbalized by the Patient): Straight or Heterosexual Spiritual care concerns: No Mod Sed Physical Exam Physical Exam Pre Procedural Exam: Normal: Appearance, Throat, Lungs, Heart Rate and Heart Rhythm Hours since solid foods: 11 Hours since liquid intake: 11 Mallampati Classification: class 1 Internal Medicine - PN: Obj Da Vital Signs Vital Signs: Vital Signs - 24 hr 06/19/24 08:03 Temperature 98.0 F Pulse Rate 61 Respiratory Rate 13 Blood Pressure 134/57 L Pulse Oximetry 100 Oxygen Delivery Room Air Labs 06/19/24 08:00 Labs: Laboratory Results - last 24 hr 06/19/24 08:00 WBC 2.9 L RBC 3.09 L Hgb 10.1 L D Hct 32.5 L MCV 105.2 H MCH 32.7 MCHC 31.1 L RDW 16.8 H Plt Count 66 L MPV 8.9 Immature Gran % (Auto) 0.3 Neut % (Auto) 39.0 L Lymph % (Auto) 50.0 H [place] % (Auto) 8.3 Eos % (Auto) 2.1 Baso % (Auto) 0.3 Lymph # (Auto) 1.45 [place] # (Auto) 0.2 Eos # (Auto) 0.1 Baso # (Auto) 0.0 Abs Immat Gran (auto) 0.01 Absolute Neuts (auto) 1.1 L Absolute Nucleated RBC 0.000 Band Neutrophils % Not Reportable Nucleated RBC % 0.0 Platelet Estimate Decreased % Immature Plt Fraction 1.9 Macrocytosis 1+ Schistocytes None seen PT 14.4 INR 1.1 ASA Classification/Sedation ASA Classification/Sedation ASA Class: III Emergent: No Risks: Risks, benefits and alternatives explained and patient/family accepted plan for sedation. Patient re-evaluated immediately prior to sedation.
[2024-06-19 10:20] VITALS: BP 124/59; PULSE 65; RESP 11; O2SAT 98
[2024-06-19 10:30] VITALS: BP 136/57; PULSE 57; RESP 10; O2SAT 100
[2024-06-19 10:45] VITALS: BP 133/54; PULSE 57; RESP 12; O2SAT 97
[2024-06-19 11:46] VITALS: BP 128/57; PULSE 57; RESP 11; O2SAT 100
== END 2024-06-19 11:48 | disposition home or self-care (01) ==
PROVIDERS: PCP Family Medicine; Referring Provider Radiology Diagnostic Radiology; Visit Provider Radiology Diagnostic Radiology
DX: C91 Lymphoid leukemia (principal); Z87.891 Personal history of nicotine dependence
CPT/HCPCS: 36415; 38222; 85025; 85055; 85610; 88305; 88311; 88313; J2250; J3010; J7040

== ENCOUNTER 2024-06-30 11:16 | Outpatient (CLI) | payer MEDICARE, SELFPAY ==
[2024-06-30 11:33] LABS: Basophils Percent Auto 0.6 % (0.2-1.2); Eosinophils Absolute Auto 0.1 K/mm3 (0-0.3); Eosinophils Percent Auto 1.6 % (0-4.4); Hematocrit 30.5 % (37.0-47.0); Hemoglobin 10.1 g/dL (12.0-15.0); Immature Granulocyte Absolute 0.01 K/mm3 (0.00-0.031); Immature Granulocyte Percent A 0.3 % (0-0.5); Lymphocytes Absolute Auto 1.56 K/mm3 (0.9-3.2); Lymphocytes Percent Auto 49.2 % (18.3-44.2); Mean Corpuscular HGB Conc 33.1 g/dl (32-36); Mean Corpuscular Hemoglobin 33.2 pg (26-34); Mean Corpuscular Volume 100.3 fl (80-100); Mean Platelet Volume 8.7 fl (7.4-10.4); Monocytes Absolute Auto 0.2 K/mm3 (0.1-0.6); Monocytes Percent Auto 6.6 % (2.6-8.5); Neutrophils Absolute Auto 1.3 K/mm3 (1.3-6.7); Neutrophils Percent Auto 41.7 % (45.5-73.1); Platelet Count Result 57 k/mm3 (150-375); Red Blood Count 3.04 M/mm3 (4.2-5.4); Red Cell Distribution Width 15.8 % (11.5-14.5); White Blood Count 3.2 K/mm3 (4.5-10.0)
--- OUTSIDE RECORDS SUMMARY | 2024-06-30 13:15 | XMS_ITS | Encounter Summary ---
Author Organization [facility] Address [address] [place] [address] Care Team Providers Care Surgical Supply Assistant Name Role Phone German Smith MD Primary Care Provider [phone] Encounter Details Date Type Department Care Team (Late st Contact Info) Description 10/25/2021 Lab Requisition [facility] Care Pathology Lab [address] [place] [address] Tha Horton MD [facility] [address] [address] Other pancytopenia Social History Tobacco [...] AM CDT) Case Report Flow Cytometry Case: [id number] Authorizing Provider: Tha Horton MD Collected: 10/25/2021 09:30 AM Ordering Location: [facility] Care Pathology Lab Received: 10/25/2021 04:47 PM Pathologist: Flora Scott Mai, DO Specimen: Bone Marrow, LEFT 10/25/2021 6:40 PM CDT [facility] Final Diagnosis Bone marrow, flow cytometric immunophenotypic analysis: - Immature B-cell population (5.6% of events) with features of hematogones - No clonal B-cell population or increase in blasts - See interpretation 10/25/2021 6:40 PM [facility] PATHOLOGY LAB Flow Cytometry Interpretation The bone [...] flow cytometry specimen is reviewed for quality intern purposes. The sample is spiculated and cellular. [...] lar studies is required. 10/25/2021 6:40 PM [facility] PATHOLOGY [facility] Flow Cytometry Results Differential Result Comment Flow Cell Count /uL 69,600 Total Viability % 94.0 Lymphocytes % 28 Dim CD45 Region % 16 Monocytes % 24 Granulocytes % 32 10/25/2021 6:40 PM [facility] Reason for test Other pancytopenia 284.19 10/25/2021 6:40 PM [facility] PATH[facility] Client Specimen ID # [id number] 10/25/2021 6:40 PM [facility] Number of markers 10 were performed. A-2 Flow CD10 A-3 Flow CD13 A-5 Flow CD20 A-1 Flow CD5 A-4 Flow CD19 A-6 Flow CD33 A-7 Flow CD34 A-8 Flow CD45 A-9 [place]+CD19+ A-10 Lambda+CD19+ 10/25/2021 6:40 PM [facility] PATH[facility] Disclaimer Test performed at [facility], [address] [place], [place], [address]. *The established laboratory minimum viability is 70%. [...] complexity clinical testing. 10/25/2021 6:40 PM CDT [facility] PATHOLOGY LAB Embedded Images 6:40 PM CDT [facility] PATH[facility] Pathology/Cytolo gy BONE MARROW SPECIMEN / Unknown 10/25/2021 9:30 AM CDT 10/25/2021 4:47 PM CDT Tha Horton MD LAB - PATHOLOGY/CYTOLOGY ORDERAB LES Final Result Performing Organization Address City/State/[facility] Co de Phone Number [facility] PATHOLOGY LAB [address] [facility]. [address] [phone] documented in this encounter Visit Diagnoses Diagnosis Other pancytopenia (HCC) Other pancytopenia documented in this encounter Care Teams Surgical Supply Assistant Relationship Specialty Start Date End Date German Smith MD [address] [place] [address] PCP - General 09/26/21 documented as of this encounter
--- OUTSIDE RECORDS SUMMARY | 2024-06-30 13:15 | XMS_ITS | Clinical Summary ---
Author Organization [facility] Address [address] [place] [address] Care Team Providers Care Coin Machine Collector Supervisor Name Role Phone Erik Hyatt MD Primary [...] Encounters Date Type Department Care Team Description 06/30/2024 9:30 AM CDT Office Visit [facility] Oncology and Hematology - [address] [place] [address] Chelsea Gordon MD [place] macroglobulinemia (Primary Dx); Iron deficiency anemia, unspecified iron deficiency anemia type 06/24/2024 Orders Only [facility] Oncology and Hematology - [address] [place] [address] Mauricio Dao MD 06/03/2024 Orders Only [facility] Oncology and Hematology - [address] [place] [phone] Mauricio Dao MD 06/02/2024 Abstract [facility] Oncology and Hematology [facility] [address] [place] [phone] Mauricio Dao MD 05/30/2024 12:00 PM CDT Office Visit [facility] Oncology and Hematology [facility] [address] [place] [address] Mauricio Dao MD Pancytopenia (CMS/HCC) (Primary Dx) 05/26/2024 Orders Only [facility] Oncology and Hematology - [address] [place] [address] Mauricio Dao MD 04/22/2024 External Device Data [...] Sign Reading Time Taken Comments Blood Pressure 138/86 06/30/2024 9:43 AM CDT Pulse 70 06/30/2024 9:43 AM CDT Temperature 36.6 C (97.8 F) 06/30/2024 9:43 AM CDT Respiratory Rate 15 06/30/2024 9:43 AM CDT Oxygen Saturation 90% 06/30/2024 9:43 AM CDT Inhaled Oxygen Concentration - - Weight 69.5 kg (153 lb 3.2 oz) 06/30/2024 9:43 A M CDT Height 167.6 cm (5' 6 ) 11/02/2021 1:34 PM CDT Body Mass Index 24.73 11/02/2021 1:34 PM CDT Plan of Treatment Upcoming Encounters Date Type Department Care Team (Late st Contact Info) Description 07/14/2024 4:30 PM CDT Telephone Check Up [facility] Oncology and Hematology - [place] [address] [facility] [address] [place] [address] Mauricio Dao MD [address] [facility] [address] [place] [address] Health Maintenance Due Date Last Done Comments DTAP/TDAP/TD VACCINES (1 - Tdap) 1964 PNEUMOCOCCAL VACCINE 50+ YEARS (1 of 2 - PCV) 06/06/18 65 ZOSTER VACCINE (1 of 2) 1964 OSTEOPOROSIS SCREENING 2010 RSV VACCINE (60+ or ) (1 - 1-dose 75+ series) 2020 INFLUENZA VACCINE (#1) 2023 [place] Prev entative Visit/Annual Wellness Visit 03/05/2024 COLORECTAL SCREENING Discontinued 09/23/2021 Colorectal Cancer Screening Discontinued FIT-DNA Q 3 years Discontinued FIT/FOBT Q 1 year Discontinued Flex Sig/CT Colonography Q 5 years Discontinued Procedures Procedure Name Priority Date/Time Associated Diagnosis Comments FLOW CYTOMETRY REPORT Routine 06/19/2024 2:42 PM CDT MS RBC LEUKOCYTES REDUCED Routine 2024 11:59 AM CDT HEMOGLOBIN AND HEMATOCRIT Routine 2024 8:00 AM CDT CBC WITH AUTODIFFERENTIAL Routine 2024 12:56 PM CDT COLONOSCOPY REPORT Routine 09/23/2021 from Last 3 Months or Most Recently Relevant to Health Maintenance Results * FLOW CYTOMETRY REPORT (06/19/2024 2:42 PM CDT) Mauricio Dao MD PATHOLOGY/CYTOLOGY ORDERABLES F inal Result * MS RBC LEUKOCYTES REDUCED (05/31/2024 11:59 AM CDT) Result [facility] Mauricio Dao MD CHG - LABORATORY Final Result * HEMOGLOBIN AND HEMATOCRIT (05/31/2024 8:00 AM CDT) Blood Result [facility] Mauricio Dao MD HEMATOLOGY ORDERABLES Final Res ult * CBC WITH AUTODIFFERENTIAL (05/23/2024 12:56 PM CDT) Blood Result [facility] Mauricio Dao MD HEMATOLOGY ORDERABLES Final Res ult * COLONOSCOPY REPORT (09/23/2021) Result [facility] Abstract Provider GI PROCEDURE ORDERABLES Final Result from Last 3 Months or Most Recently Relevant to Health Maintenance [place] [address] [address] [place] [address] Care Teams Coin Machine Collector Supervisor Relationship Specialty Start Date End Date Erik Hyatt MD [address] [place] [address] PCP - General Family Practice 09/19/21
--- OUTSIDE RECORDS SUMMARY | 2024-06-30 13:16 | XMS_ITS | Encounter Summary ---
Author Organization [facility] Address [address] [place] [address] Care Team Providers Care Plant Operator Name Role Phone German Smith MD Primary Care Provider [phone] Encounter Details Date Type Department Care Team (Late st Contact Info) Description 06/19/2024 Lab Requisition [facility] - Pathology Lab [address] [place] [phone] Chinmay Pederson MD [address] [facility] [address] [place] [address] Other pancytopenia (HCC) Social History Tobacco Use Types Packs/Day Years [...] Diagnosis Comments FLOW CYTOMETRY BONE MARROW Routine 06/19/2024 10:00 AM CDT Other pancytopenia (HCC) documented in this encounter Results * FLOW CYTOMETRY BONE MARROW (06/19/2024 10:00 AM CDT) Case Report Flow Cytometry Case: [id number] Authorizing Provider: Chinmay Pederson Collected: 06/19/2024 10:00 AM MD Wilner Ordering Location: [facility] Physician [facility] - Received: 06/19/2024 12:37 PM Pathology Lab Pathologist: Simi Silva MD Specimen: Bone Marrow 4:31 PM CDT [facility] PATH[facility] Final Diagnosis Bone marrow, flow cytometric immunophenotyping: - Monoclonal (kappa-restricted) B-cell population (17% of total events), nonspecific immunophenotype (see comment) - No diagnostic immunophenotypic evidence of increased blasts or plasma cell neoplasm Comment: Flow cytometry identifies monoclonal B-cells consistent with a lymphoproliferative disorder. The immunophenotype is nonspecific. CD5 expression is not present which does not favor CLL/SLL or mantle cell leukemia/lymphoma, and CD10 is not expressed which does not favor follicular lymphoma or Burkitt lymphoma. Minimal markers of hairy cell leukemia are present and this is also not favored. The leading differential diagnoses include marginal zone lymphoma and lymphoplasmacytic lymphoma. Correlation with morphologic review of the bone marrow is required. 5 4:31 PM [facility] PATH[facility] at 1631 CDT Flow Cytometry Interpretation Viability: 80% B-cells: 17% of total, monoclonal, kappa-restricted, no significant CD5, CD10, CD34 expression. A minimal subset of cells show coexpression of CD19, CD25, CD11c, and CD103 (approximately 5% of lymphocytes/1% of total) T-cells: 11% of total, full immunophenotype not explored given the patient's diagnosis Blasts: detected, 1.4%, express CD34, CD33, CD13 Plasma cells: no significant population detected MRD sent: No A bone marrow aspirate smear prepared from the flow cytometry specimen has been reviewed for quality assurance monitor body purposes. Please correlate with morphologic review of the bone marrow. 5 4:31 PM [facility] Flow Cytometry Results Differential Result Comment Flow Cell Count /uL 34,000 Total Viability % 80.0 Lymphocytes % 30 Dim CD45 Region % 11 Monocytes % 1 Granulocytes % 48 5 4:31 PM [facility] Reason for test Other pancytopenia (HCC) 284.19 5 4:31 PM [facility] Client Specimen ID # [id number] 5 4:31 PM [facility] Number of markers 13 were performed. A-2 Flow CD10 A-3 Flow CD13 A-5 Flow CD20 A-11 Flow CD25 A-12 Flow CD103 A-13 Flow CD11c A-1 Flow CD5 A-4 Flow CD19 A-6 Flow CD33 A-7 Flow CD34 A-8 Flow CD45 A-9 [place]+CD19+ A-10 Lambda+CD19+ 5 4:31 PM CDT [facility] Pathologist Location at [facility] 5 4:31 PM CDT [facility] Disclaimer Test performed at [facility], [address] [place], [place], [address]. *The established laboratory minimum viability is 70%. [...] qualified to perform high complexity clinical testing. 5 4:31 PM CDT [facility] Embedded Images 5 4:31 PM CDT [facility] Pathology/Cytolo gy BONE MARROW SPECIMEN / Unknown 06/19/2024 10:00 AM CDT 06/19/2024 12:37 PM CDT Chinmay Pederson MD LAB - PATHOLOGY/CYT OLOGY ORDERABLES Final Result [facility] [address] [place] [address]. [address] [phone] documented in this encounter Visit Diagnoses Diagnosis Other pancytopenia (HCC) Other pancytopenia documented in this encounter Care Teams Plant Operator Relationship Specialty Start Date End Date German Smith MD [address] [place] [address] PCP - General 09/26/21 documented as of this encounter
--- OUTSIDE RECORDS SUMMARY | 2024-06-30 13:16 | XMS_ITS | Continuity of Care Document ---
Author Organization [facility] Address [address] [place] [address] [place] [address] Phone Care Team Providers Care Firestopper Installer Name Role Phone Salinas Phelps Unavailable Unavailable Procedures Procedure Date Office/outpatient Visit, Est Eye Exam & Treatment Refraction Office/outpatient Visit, Est Office/outpatient Visit, [facility] Advance Directives Directive Yes / No Effective Date File Name No Information Encounters Encounter Description Practice Location Reason(s) For Visit Diagnoses Date Provider Providers Copied on Encounter Office/outpat ient Visit, [facility] [place], [address] [place] [address] [address], [place], [place], [id number], tel:[phone] [facility] [place] No Information 3-201 0 Lenin Niño. [address] [facility] [place] , [address], [place], [place], [facility], . tel:[phone] [facility], [address] [place] [address] [address], [place], [place], [id number], [place] tel:[phone] [facility] [place] No Information 4-200 9 Lenin Niño. [address] [facility] [address], [address], [place], [place], [facility], . tel:[phone] Office/outpat ient Visit, [facility], [address] [place] [address] [address], [place], [place], [id number], tel:[phone] [facility] [place] No Information [address] Doialma Edkrzysztof. [address] [facility] , [address], [place], [address], [place]. tel:[phone] Office/outpat ient Visit, [facility], [address], [place], [place], [id number], [place] tel:[phone] [facility] [place] No Information 8 Doialma Niño. [address] [facility] , [address], [place], [address], [place]. tel:[phone] Referring Provider: German Smith MD , [address], [place], [address]. tel:[phone] Family History Family Member Type Diagnosis Age At Onset No Information Payers Payer name Insurance type Covered constitution party ID Authoriza tion(s) [employer] [id number] Written Refer ral Social History Type Description [...]
--- OUTSIDE RECORDS SUMMARY | 2024-06-30 13:16 | XMS_ITS | Encounter Summary ---
Author Organization [facility] [employer] [facility] Address [address] [place] [address] Care Team Providers Care Rn Clinical Documentation Specialist Name Role Phone Erik Hyatt MD Primary Care Provider Reason for Visit * Reason Comments Follow Up Encounter Details Date Type Department Care Team (Late st Contact Info) Description 06/30/2024 9:30 AM CDT Office Visit [facility] Oncology and Hematology - Jett [address] [place] [address] Chelsea Gordon MD [address] [place] [address] Waldenstrom macroglobulinemia (Primary Dx); Iron deficiency anemia, unspecified iron deficiency anemia type Social History Tobacco Use Types Packs/Day Years [...] oz) 06/30/2024 9:43 A M CDT Height - - Body Mass Index 24.73 11/02/2021 1:34 PM CDT documented in this encounter Progress Notes * Nathan-Chelsea Sotomayor MD - 06/30/2024 9:44 AM CDT HEMATOLOGY / ONCOLOGY PROGRESS NOTE Patient Identification: Name: Francia Robles Age: 79 y.o. Sex: female : 1945 DIAGNOSIS Pancytopenia CURRENT TREATMENT Surveillance TREATMENT HISTORY Bone marrow aspiration and biopsy was performed on October 25, 2021 Bone marrow aspiration and biopsy was performed on June 19, 2024 SUBJECTIVE Patient came into the office for follow-up visit. She last saw Dr. Dao on 05/30/2024 and due to worsening cytopenias a bone marrow biopsy was ordered and was performed on 06/19/2024. Patient is presenting to discuss the results of the bone marrow biopsy. She is complaining of tiredness and fatigue. 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 Nonspecific immunophenotype. Comm Comment -CD5 expression is not present which does not favor CLL/SLL or mantle cell leukemia/lymphoma - CD10 is not expressed which does not favor follicular lymphoma or Burkitt lymphoma - Minimal markers of hairy cell leukemia are present and this is not also favored - The leading differential diagnosis includes marginal zone lymphoma and lymphoplasmacytic lymphoma. 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 CT soft tissue neck chest abdomen and pelvis done onSeptember 26 showed no pathologically enlarged lymph node but marked splenomegaly with the spleen size of 17.2 cm. There was some evidence of a splenic infarction. There was also thrombosis of the left superficial femoral artery. Bone marrow aspiration and biopsy done on October 25, 2021 which showed normocellular marrow withoutevidence of lymphoma and leukemia. PET scan done on January 12, 2022 showed moderate splenomegaly with mild improvement now measures 15.1 cm decreased from 16 8.cm previously. SUV equals to the liver with maximum SUV of 3.5. There isno evidence of lymphadenopathy. BCR-ABL translocation not detected. Angiotensin-converting enzyme negative for sarcoidosis. EBV serology came back positive indicating likely past infection. Patient was noted to have progressive cytopenias and another bone marrow biopsy was ordered and performed 06/19/2024. The bone marrow aspirate clot section and core biopsy shows 10% involvement by mature B-cell lymphoma. There was no dyspoiesis and normal trilineage hematopoiesis was seen. There were decreased iron storage. Cellularity was 40%. Flow cytometry showed immunophenotype suggestive of marginal zone or ly mphoplasmacytic lymphoma. I am ordering immunoglobulins and serum viscosity to assess for lymphoplasmacytic lymphoma (Waldenstr??m's). She will have a phone visit with Dr. Dao in 2 weeks to discuss the results. She might be a candidate for BTK inhibitor Zanubrutinib and a lower dose. Iron deficiency noted in the bone marrow biopsy- Low iron stores were noted on the bone marrow biopsy performed 06/19/2024. I am getting full iron panel with ferritin. Patient reports that she is taking oral iron every other day which constipate herseverely. She can benefit from IV iron. She will discuss this with Dr. Dao. Patient will have a phone appointment with Dr. Dao for review of the labs done today, starting BTK inhibitor, starting IV iron. Peripheral vascular disease status post amputation. Stable on warfarin. 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 Follow-up in 2 weeks via phone visit. 06/30/2024 documented in this encounter Plan of Treatment Upcoming Encounters Date Type Department Care Team (Late st Contact Info) Description 07/14/2024 4:30 PM CDT Telephone Check Up [facility] Oncology and Hematology - [place]ett [address] [facility] [address] [place] [address] Mauricio Dao MD [address] [facility] [address] [place] [address] Scheduled Orders Name Type Priority Associated Diagnoses Orde r Schedule CBC WITH DIFFERENTIAL Lab Routine Waldenstrom macroglobulinemia Expected: 06/30/2024, Expires: 06/30/2025 COMPREHENSIVE METABOLIC PANEL Lab Routine Waldenstrom macroglobulinemia Expected: 06/30/2024, Expires: 06/30/2025 IMMUNOGLOBULINS IGG IGA IGM Lab Routine Waldenstrom macroglobulinemia Expected: 06/30/2024, Expires: 06/30/2025 VISCOSITY, SERUM Lab Routine Waldenstrom macroglobulinemia Expected: 06/30/2024, Expires: 06/30/2025 IRON, TIBC, AND PERCENT SATURATION Lab Routine Waldenstrom macroglobulinemia Expected: 06/30/2024, Expires: 06/30/2025 FERRITIN Lab Routine Waldenstrom macroglobulinemia Iron deficiency anemia, unspecified iron deficiency anemia type Expected: 06/30/2024, Expires: 06/30/2025 VITAMIN B12 AND FOLATE Lab Routine Waldenstrom macroglobulinemia Expected: 06/30/2024, Expires: 06/30/2025 documented as of this encounter Visit Diagnoses Diagnosis Waldenstrom macroglobulinemia- Primary Macroglobulinemia Iron deficiency anemia, unspecified iron deficiency anemia type documented in this encounter Care Teams Rn Clinical Documentation Specialist Relationship Specialty Start Date End Date Erik Hyatt MD [address] [place] [id number] PCP - General Family Practice 09/19/21 documented as of this encounter
--- OUTSIDE RECORDS SUMMARY | 2024-06-30 13:16 | XMS_ITS | Encounter Summary ---
Author Organization [facility] Address [address] [place] [address] Care Team Providers Care Manager Staffing Name Role Phone German Smith MD Primary Care Provider [phone] Encounter Details Date Type Department Care Team (Late st Contact Info) Description 10/27/2021 Lab Requisition [facility] Pathology Lab [address] [place] [address] Tha Horton MD [facility] [address] [address] Illness, unspecified Social History Tobacco [...] Report Bone Marrow Patholog y Report Case: [id number] Authorizing Provider: Tha Horton MD Collected: 10/25/2021 09:52 AM Ordering Location: [facility] Pathology Lab Received: 10/27/2021 07:52 AM Pathologist: Flora Scott Mai, DO Specimens: A) - Bone Marrow Clot B) - Bone Marrow Core 10/28/2021 1:49 PM [facility] PATHOLOGY [facility] Final Diagnosis Bone marrow, aspirate, clot section, and core biopsy: - Normocellular marrow with maturing trilineage hematopoiesis - Lymphoid aggregates with no diagnostic evidence of clonal B-cell or aberrant T-cell population - See description 10/28/2021 1:49 PM [facility] Comment The bone marrow specimen is normocellular for age with maturing trilineage hematopoiesis and no diagnostic evidence of lymphoma, a high-grade myeloid neoplasm, or significant dyspoiesis. Correlation with clinical findings and relevant cytogenetic/molecular testing is required. Case reviewed in intradepartmental consensus. 10/28/2021 1:49 PM [facility] Bone Marrow Aspirate Differential [...] however, sample is suboptimal 10/28/2021 1:49 PM [facility] Bone Marrow Core Biopsy [...] performed on the core biopsy in the [facility] Department of Pathology, with appropriately reactive controls, [...] blasts (less than 2%) 10/28/2021 1:49 PM [facility] Flow Cytometry Summary [id number]: Immature B-cell population (5.6% of events) with features of hematogones. No clonal B-cell population or increase in blasts. 10/28/2021 1:49 PM [facility] Clinical History Pancytopenia. Splenomegaly (17.2 cm). History of cervical cancer. History of vitamin B12 deficiency. 10/28/2021 1:49 PM [facility] Materials Received Received are 19 slide(s) and 3 blocks (A1, A2, B1) labeled [id number] along with a copy of the outside pathology report. [place] [address]. All original materials are returned to the referring institution, along with a copy of our final report. 10/28/2021 1:49 PM [facility] Disclaimer The performance characteristics of all immunohistochemical and indirect immunofluorescence stains (if any) cited in this report were determined by the Histopathology Laboratory of [facility]. Some of these tests were developed by [...] attending (teaching) pathologist. 10/28/2021 1:49 PM CDT [facility] Embedded Images 10/28/2021 1:49 PM CDT [facility] Pathology/Cytology BONE MARROW SPECIMEN / Unknown 10/25/2021 9:52 AM CDT 10/27/2021 7:52 AM CDT Miscellaneous samples (specimen) BONE MARROW SPECIMEN / Unknown 10/25/2021 9:52 AM CDT 10/27/2021 7:52 AM CDT us Tha Horton MD LAB - PATHOLOGY/CYTOLOGY ORDERAB LES Final Result Performing Organization Address City/State/[facility] Co de Phone Number [facility] [address] [phone] documented in this encounter Visit Diagnoses Diagnosis Illness, unspecified documented in this encounter Care Teams Manager Staffing Relationship Specialty Start Date End Date German Smith MD [address] [place] [address] PCP - General 09/26/21 documented as of this encounter
--- OUTSIDE RECORDS SUMMARY | 2024-06-30 13:16 | XMS_ITS | Clinical Summary ---
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 Left common femoral artery anastomosis measuring 3.3 cm. Follow-up in six-months with aortoiliac duplex. 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 05/14/2024 10:00 AM CDT Office Visit [facility] at [address] [place] [address] Aleah Boles NP Mixed hyperlipidemia (Primary Dx); Femoral artery aneurysm 05/14/2024 Orders Only [facility] Vascular at [address] [place] [address] Vonnie Helton MD Femoral artery aneurysm (Primary Dx) 05/06/2024 10:00 AM COAL DRIER OPERATOR Ancillary Procedure [facility] Vascular and Vein Surgery at [address] [place] [address] Femoral artery aneurysm; Other specified symptoms and signs involving the circulatory and respiratory systems 05/06/2024 10:00 AM COAL DRIER OPERATOR Ancillary Procedure [facility] Vascular and Vein Surgery at [address] [place] [address] Femoral artery aneurysm 04/10/2024 Orders Only [facility] Vascular and Vein Surgery [address] [facility] [address] [place] [address] Vonnie Helton MD Femoral artery aneurysm (Primary Dx) from Last 3 Months Social History Tobacco Use Types Packs/Day Years Used Date Smoking Tobacco: Unknown Tobacco Cessation:Counseling Given: Not Answered Comments Unknown Sex and Gender Information Value Date Recorded Sex Assigned at Not on file Legal Sex Female 1:00 PM COAL DRIER OPERATOR Gender Identity Not on file Sexual Orientation [...] Read Routine (OP Routine) 05/06/2024 11:03 AM COAL DRIER OPERATOR Femoral artery aneurysm US DUPLEX SCAN AORTA, IVC ILIAC COMPLETE Schedule Routine, Read Routine (OP Routine) 05/06/2024 11:03 AM COAL DRIER OPERATOR Femoral artery aneurysm Other specified symptoms and [...] with patent right and left limbs. The poarch right common iliac artery is patent with [...] right and left limbs. 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 Redemonstration of severe [...] Nawaf Horn M.D. RB: ELVA Report ID: [id number] Reading Location: [place] [address] Procedure Note Nawaf Horn MD - 06/17/2024 [...] patent with patent right andleft limbs. The poarch right common iliac artery is patent with [...] patent right and leftlimbs. 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 Redemonstration of severe [...] Nawaf Horn M.D. RB: ELVA Report ID: [id number] Reading Location: [id number] Vonnie Helton MD IMG CT PROCEDURES Final Result * US TRELL (05/06/2024 11:03 AM COAL DRIER OPERATOR) Anatomical Region Laterality Modality Vascular N/A Ultrasound 05/06/2024 9:51 AM COAL DRIER OPERATOR Narrative 05/07/2024 10:15 AM COAL DRIER OPERATOR Vascular & Vein Surgery [address] [place] [address] Lower Extremity Arterial Doppler Report Patient Name: ESTRELLA ROBLES : 1945 Study Date: 05/06/2024 9:51:00 AM Gender: F Ship Design Teacher: Dia Dotson RVYobany Location: [facility] Ref Provider: [...] mmHg Lt Brachial Pressure 137 mmHg Rt STORM CHASER Pressure 130 mmHg Rt DPA Pressure 127 [...] By: Vonnie Helton MD 05/07/2024 9:29:05 AM COAL DRIER OPERATOR Procedure Note Vonnie Helton MD - 05/07/2024 Vascular & Vein Surgery [address] [place] [place] [address] Lower Extremity Arterial Doppler Report Patient Name: ESTRELLA ROBLES : 1945 Study Date: 05/06/2024 9:51:00 AM Gender: F Ship Design Teacher: Dia Dotson RVT Location: [facility] Ref Provider: VONNIE HELTON Quality: Adequate Order Provider: VONNIE HELTON PROCEDURES: Arterial Report: Ankle - Brachial Index Doppler exam. 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 HISTORY: HLD. Former smoker. COMPARISONS: No previous exams. MEASUREMENTS: Right Value Left Value Rt Brachial Pressure 139 mmHg Lt Brachial Pressure 137 mmHg Rt STORM CHASER Pressure 130 mmHg Rt DPA Pressure 127 [...] By: Vonnie Helton MD 05/07/2024 9:29:05 AM COAL DRIER OPERATOR us Vonnie Helton MD IMG US PROCEDURES Final Result * US Duplex Scan Aorta, IVC Iliac Complete (05/06/2024 11:03 AM COAL DRIER OPERATOR) Anatomical Region Laterality Modality Vascular N/A Ultrasound 05/06/2024 10:1 2 AM COAL DRIER OPERATOR Narrative 05/07/2024 8:41 AM COAL DRIER OPERATOR Vascular & Vein Surgery [facility] [place] [address] Abdominal Aortic Duplex Ultrasound Report Patient Name: ESTRELLA ROBLES : 1945 Study Date: 05/06/2024 10:12:35 AM Gender: F Ship Design Teacher: Location: [facility] Ref Provider: VONNIE HELTON Quality: [...] Measurements Measurement Value Units Location/Type Ao-bifem Inflow [place] Artery PSV 140.00 cm/sec Anast Prx PSV 95.00 cm/sec BPG Prx PSV 142.00 cm/sec BPG Mid PSV 24.00 cm/sec Rt Limb Prx PSV 80.00 cm/sec Rt Limb Mid PSV 72.00 cm/sec Rt Limb Dst PSV 98.00 cm/sec Anast Dst PSV 142.00 cm/sec Outflow [place] Artery PSV 121.00 cm/sec Lt Limb Prx PSV 81.00 cm/sec Lt Limb Mid PSV 42.00 cm/sec Lt Limb Dst PSV 63.00 cm/sec Anast Dst PSV 116.00 cm/sec Outflow [place] Artery PSV 93.00 cm/sec FINDINGS: Study Quality: [...] By: Vonnie Helton MD 05/07/2024 8:41:23 AM COAL DRIER OPERATOR Procedure Note Vonnie Helton MD - 05/07/2024 Vascular & Vein Surgery [address] [place] [address]. [place] [address] Abdominal Aortic Duplex Ultrasound Report Patient Name: ESTRELLA ROBLES : 1945 Study Date: 05/06/2024 10:12:35 AM Gender: F Ship Design Teacher: SEAN Location: [facility] Ref Provider: VONNIE HELTON [...] Measurements Measurement Value Units Location/Type Ao-bifem Inflow [place] Artery PSV 140.00 cm/sec Anast Prx PSV 95.00 cm/sec BPG Prx PSV 142.00 cm/sec BPG Mid PSV 24.00 cm/sec Rt Limb Prx PSV 80.00 cm/sec Rt Limb Mid PSV 72.00 cm/sec Rt Limb Dst PSV 98.00 cm/sec Anast Dst PSV 142.00 cm/sec Outflow [place] Artery PSV 121.00 cm/sec Lt Limb Prx PSV 81.00 cm/sec Lt Limb Mid PSV 42.00 cm/sec Lt Limb Dst PSV 63.00 cm/sec Anast Dst PSV 116.00 cm/sec Outflow [place] Artery PSV 93.00 cm/sec FINDINGS: Study Quality: [...] By: Vonnie Helton MD 05/07/2024 8:41:23 AM COAL DRIER OPERATOR Vonnie Helton MD [facility] PROCEDURES Final Result from Last 3 Months Insurance [facility] MEDICARE ADVANTAGE Care Teams Sodium Methylate Operator Relationship Specialty Start Date End Date Erik Hyatt MD [address] [facility]NOTE 3] [address] [address] PCP - General Family Practice 09/11/23
--- OUTSIDE RECORDS SUMMARY | 2024-06-30 13:16 | XMS_ITS | Encounter Summary ---
Author Organization [facility] Address [address] [facility] [address] Care Team Providers Care Personnel Generalist Manager Name Role Phone German Smith MD Primary Care Provider [phone] Encounter Details Date Type Department Care Team (Late st Contact Info) Description 06/20/2024 Lab Requisition [facility] - Pathology Lab [address] [place] [id number] Chinmay Pederson MD [address] [facility] [address] [place] [address] Illness, unspecified Social History Tobacco Use Types [...] Diagnosis Comments BONE MARROW BIOPSY (STL) Routine 06/19/2024 10:00 AM CDT Illness, unspecified documented in this encounter Results * BONE MARROW BIOPSY (STL) (06/19/2024 10:00 AM CDT) Case Report Bone Marrow Patholog y Report Case: [id number] Authorizing Provider: Chinmay Pederson Collected: 06/19/2024 10:00 AM MD Wilner Ordering Location: [facility] Physician [facility] - Received: 06/20/2024 01:37 PM Pathology Lab Pathologist: Rick Yoo MD Specimens: A) - Bone Marrow Clot B) - Bone Marrow Core 06/24/2024 9:53 AM [facility] Final Diagnosis Bone marrow, aspirate, clot section, and core biopsy: - Involved by mature B-cell lymphoma (approximately 10%) - Hypercellular bone marrow for age (40% cellularity) - Trilineage hematopoiesis with no significant dyspoiesis - Decreased iron storage 06/24/2024 9:53 AM [facility] at [address] [facility] AP Comment The bone marrow is involved by mature B-cell lymphoma, negative for CD5 and CD10 by flow cytometry study. Biopsy of extramedullary lesions necessary for final classification. The patient's history of splenomegaly is noted, and spleen could be the potential primary site, especially if no additional lymphadenopathy and/or lymphoid lesions are identified in other body parts. Clinical and imaging correlation recommended. 06/24/2024 9:53 AM [facility] Peripheral Smear Description Not received for review. 06/24/2024 9:53 AM [facility] Bone Marrow Aspirate Specimen quality: Adequate.. Spicules: Present. Lymphocytes: Occasionally seen, including rare larger forms with cytoplasmic vacuoles, at approximately 10% of the total nucleated marrow elements. Trilineage Hematopoiesis: Normal. Myeloid:Erythroid ratio: normal. Myeloid Maturation: normal. Erythroid Maturation: normal, rare cells with nuclear contour irregularity, and rare binucleated cells. Megakaryocytes: Rare forms with mono- or hypo-lobation. Plasma cells: Scattered seen. Storage iron (by special stain): Decreased. Sideroblastic iron (by special stain): No ring sideroblasts seen. 06/24/2024 9:53 AM [facility] Bone Marrow Core Biopsy and Clot Section Description Specimen quality: Adequate, 20 mm of evaluable marrow. Cellularity: 40%, hypercellular. Blasts: Few, no aggregates. Trilineage Hematopoiesis: Present. Myeloid to Erythroid ratio: Normal. Myeloid maturation and localization: Normal. Erythroid maturation and localization: Normal. Megakaryocyte number: Normal. Megakaryocyte distribution: Normal. Lymphoid aggregates: Multiple seen, in the interstitium and occasionally paratrabecular, comprising of small mature forms. Selected immunostains are performed, and reveal the following: The B-cells are highlighted by CD20 and PAX5 (approximately 10%), which are negative for cyclin D1, CD10 and BCL6. CD3, CD5, and CD43 highlight the admixed T-cells, with coexpression of BCL-2. CD23 stain displays no significant staining on the lymphoid aggregates. Ki-67 highlights approximately 5% of the lymphoid cells, and majority of the hematopoietic elements. Plasma cells: Scattered seen. CD138 highlights scattered plasma cells, at approximately 5%, including ones associated with the lymphoid aggregates. Reticulum stain: No increased reticulin fibrosis (MF-0/3). Storage iron (by special stain): Decreased. Sideroblastic iron (by special stain): No ring sideroblasts seen. Clot section marrow particles: Present. Clot section morphology: Similar to core biopsy specimen. Multiple lymphoid aggregates, comprising of B-cells and T-cells. The B-cells are highlighted by CD20 and PAX5 (approximately 10%), which are negative for cyclin D1, CD10 and BCL6. CD3, CD5, and CD43 highlight the admixed T-cells, with coexpression of BCL-2. CD23 stain displays no significant staining on the lymphoid aggregates. CD138 highlights scattered plasma cells, at approximately 5%, including ones associated with the lymphoid aggregates. Sideroblastic iron (by special stain): No ring sideroblasts seen. 06/24/2024 9:53 AM [facility] Flow Cytometry Summary Bone marrow, flow cytometric immunophenotyping ([id number]): - Monoclonal (kappa-restricted) B-cell population (17% of total events), nonspecific immunophenotype - No diagnostic immunophenotypic evidence of increased blasts or plasma cell neoplasm 06/24/2024 9:53 AM [facility] Clinical History History of splenomegaly and splenic infarction. Pancytopenia 06/24/2024 9:53 AM [facility] Materials Received Received are 18 slide(s) and 3 block(s) labeled [id number] along with a copy of the outside pathology report. [place] [address]. All original materials are returned to the referring institution, along with a copy of our final report. 06/24/2024 9:53 AM [facility] Pathologist Location at [facility] 06/24/2024 9:53 AM [facility] Disclaimer The performance characteristics of all immunohistochemical and indirect immunofluorescence stains (if any) cited in this report were determined by the Histopathology Laboratory of [facility]. Some of these tests were developed by [...] and interpreted by the attending (teaching) pathologist. 06/24/2024 9:53 AM CDT [facility] Embedded Images 06/24/2024 9:53 AM CDT [facility] Pathology/Cytology BONE MARROW SPECIMEN / Unknown 06/19/2024 10:00 AM CDT 06/20/2024 1:37 PM CDT Miscellaneous samples (specimen) BONE MARROW SPECIMEN / Unknown 06/19/2024 10:00 AM CDT 06/20/2024 1:37 PM CDT Chinmay Pederson MD LAB - PATHOLOGY/CYT OLOGY ORDERABLES Final Result Performing Organization Address City/State/[facility] Co de Phone Number [facility] [address] [phone] documented in this encounter Visit Diagnoses Diagnosis Illness, unspecified documented in this encounter Care Teams Personnel Generalist Manager Relationship Specialty Start Date End Date German Smith MD [address] [place] [phone] PCP - General 09/26/21 documented as of this encounter
--- OUTSIDE RECORDS SUMMARY | 2024-06-30 13:16 | XMS_ITS | Referral Summary ---
Author Organization [facility] Address [address] [place] [address] Care Team Providers Care Swing Type Lathe Operator Name Role Phone Erik Hyatt MD Primary Care Provider Encounters Date Type Department Care Team Description 06/18/2024 Orders Only [facility] Vascular at [address] [phone] Vonnie Helotn MD Femoral artery aneurysm (Primary Dx); Other specified symptoms and signs involving the circulatory and respiratory systems 06/18/2024 10:30 AM CDT Office Visit [facility] V[facility] at [address] [address] Aleah Boles, LADLE CLEANER Mixed hyperlipidemia (Primary Dx); Femoral artery aneurysm 06/13/2024 11:30 AM CDT - 06/13/2024 11:59 PM CDT Hospital Encounter [address] [address] Femoral artery aneurysm Discharge Disposition: Discharge to home or self care 06/12/[address] [address] Olga Moody 05/14/2024 Orders Only [facility] Vascular at [address] [place] [phone] Vonnie Helton MD Femoral artery aneurysm (Primary Dx) 05/14/2024 10:00 AM CDT Office Visit [facility] Vascular at [address] [place] [phone] Aleah Boles LADLE CLEANER Mixed hyperlipidemia (Primary Dx); Femoral artery aneurysm 05/06/2024 10:00 AM DENTAL CREAM MAKER Ancillary Procedure [facility] Vascular and Vein Surgery at [address] [place] [phone] Femoral artery aneurysm; Other specified symptoms and signs involving the circulatory and respiratory systems 05/06/2024 10:00 AM DENTAL CREAM MAKER Ancillary Procedure [facility] Vascular and Vein Surgery at [address] [place] [phone] Femoral artery aneurysm 04/10/2024 Orders Only [facility] Vascular and Vein Surgery [address] [facility] [address] [place] [address] Vonnie Helton MD Femoral artery [...] (09/19/2023 12:50 PM CDT): CT scan from [facility] with concern for a left common femoral [...] on file Legal Sex Female 1:00 PM DENTAL CREAM MAKER Gender Identity Not on file Sexual Orientation [...] Read Routine (OP Routine) 05/06/2024 11:03 AM DENTAL CREAM MAKER Femoral artery aneurysm US DUPLEX SCAN AORTA, IVC ILIAC COMPLETE Schedule Routine, Read Routine (OP Routine) 05/06/2024 11:03 AM DENTAL CREAM MAKER Femoral artery aneurysm Other specified symptoms and [...] with patent right and left limbs. The solomon right common iliac artery is patent with [...] right and left limbs. 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 Redemonstration of severe [...] Nawaf Horn M.D. RB: ELVA Report ID: [id number] Reading Location: [id number] Procedure Note Nawaf Horn MD - 06/17/2024 [...] patent with patent right andleft limbs. The solomon right common iliac artery is patent with [...] patent right and leftlimbs. 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 Redemonstration of severe [...] Nawaf Horn M.D. RB: ELVA Report ID: [id number] Reading Location: [id number] us Vonnie Helton MD IMG CT PROCEDURES Final Result * US TRELL (05/06/2024 11:03 AM DENTAL CREAM MAKER) Anatomical Region Laterality Modality Vascular N/A Ultrasound 05/06/2024 9:51 AM DENTAL CREAM MAKER Narrative 05/07/2024 10:15 AM DENTAL CREAM MAKER Vascular & Vein Surgery [address] [place] [address] Lower Extremity Arterial Doppler Report Patient Name: ESTRELLA ROBLES : 1945 Study Date: 05/06/2024 9:51:00 AM Gender: F Railroad Firer: Dia Dotson RVT Location: [facility] Ref Provider: [...] mmHg Lt Brachial Pressure 137 mmHg Rt ENVIRONMENTAL SCIENCES PROFESSOR Pressure 130 mmHg Rt DPA Pressure 127 [...] By: Vonnie Helton MD 05/07/2024 9:29:05 AM DENTAL CREAM MAKER Procedure Note Vonnie Helton MD - 05/07/2024 Vascular & Vein Surgery [address] [place] [address] Lower Extremity Arterial Doppler Report Patient Name: ESTRELLA ROBLES : 1945 Study Date: 05/06/2024 9:51:00 AM Gender: F Railroad Firer: Dia Dotson RVT Location: [facility] Ref Provider: VONNIE HELTON Quality: Adequate Order Provider: VONNIE HELTON PROCEDURES: Arterial Report: Ankle - Brachial Index Doppler exam. 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 HISTORY: HLD. Former smoker. COMPARISONS: No previous exams. MEASUREMENTS: Right Value Left Value Rt Brachial Pressure 139 mmHg Lt Brachial Pressure 137 mmHg Rt ENVIRONMENTAL SCIENCES PROFESSOR Pressure 130 mmHg Rt DPA Pressure 127 [...] By: Vonnie Helton MD 05/07/2024 9:29:05 AM DENTAL CREAM MAKER us Vonnie Helton MD IMG US PROCEDURES Final Result * US Duplex Scan Aorta, IVC Iliac Complete (05/06/2024 11:03 AM DENTAL CREAM MAKER) Anatomical Region Laterality Modality Vascular N/A Ultrasound 05/06/2024 10:1 2 AM DENTAL CREAM MAKER Narrative 05/07/2024 8:41 AM DENTAL CREAM MAKER Vascular & Vein Surgery [facility] [place] [address] Abdominal Aortic Duplex Ultrasound Report Patient Name: ESTRELLA ROBLES : 1945 Study Date: 05/06/2024 10:12:35 AM Gender: F Railroad Firer: Location: [facility] Ref Provider: VONNIE HELTON Quality: [...] Measurements Measurement Value Units Location/Type Ao-bifem Inflow [place] Artery PSV 140.00 cm/sec Anast Prx PSV 95.00 cm/sec BPG Prx PSV 142.00 cm/sec BPG Mid PSV 24.00 cm/sec Rt Limb Prx PSV 80.00 cm/sec Rt Limb Mid PSV 72.00 cm/sec Rt Limb Dst PSV 98.00 cm/sec Anast Dst PSV 142.00 cm/sec Outflow [place] Artery PSV 121.00 cm/sec Lt Limb Prx PSV 81.00 cm/sec Lt Limb Mid PSV 42.00 cm/sec Lt Limb Dst PSV 63.00 cm/sec Anast Dst PSV 116.00 cm/sec Outflow [place] Artery PSV 93.00 cm/sec FINDINGS: Study Quality: [...] By: Vonnie Helton MD 05/07/2024 8:41:23 AM DENTAL CREAM MAKER Procedure Note Vonnie Helton MD - 05/07/2024 Vascular & Vein Surgery [address] [place] [address] Abdominal Aortic Duplex Ultrasound Report Patient Name: ESTRELLA ROBLES : 1945 Study Date: 05/06/2024 10:12:35 AM Gender: F Railroad Firer: Location: [facility] Provider: VONNIE HELTON Quality: Adequate Order Provider: [...] Measurements Measurement Value Units Location/Type Ao-bifem Inflow [place] Artery PSV 140.00 cm/sec Anast Prx PSV 95.00 cm/sec BPG Prx PSV 142.00 cm/sec BPG Mid PSV 24.00 cm/sec Rt Limb Prx PSV 80.00 cm/sec Rt Limb Mid PSV 72.00 cm/sec Rt Limb Dst PSV 98.00 cm/sec Anast Dst PSV 142.00 cm/sec Outflow [place] Artery PSV 121.00 cm/sec Lt Limb Prx PSV 81.00 cm/sec Lt Limb Mid PSV 42.00 cm/sec Lt Limb Dst PSV 63.00 cm/sec Anast Dst PSV 116.00 cm/sec Outflow [place] Artery PSV 93.00 cm/sec FINDINGS: Study Quality: [...] By: Vonnie Helton MD 05/07/2024 8:41:23 AM DENTAL CREAM MAKER us Vonnie Helton MD IMG US PROCEDURES Final Result from Last 3 Months Insurance [facility] Address: [address] [address] [facility] Address: [address] [address] Care Teams Swing Type Lathe Operator Relationship Specialty Start Date End Date Erik Hyatt MD [address] [place] [address] PCP - General Family Practice 09/11/23
--- OUTSIDE RECORDS SUMMARY | 2024-06-30 13:16 | XMS_ITS | Clinical Summary ---
Author Organization [facility] Address [address] [facility] [place] [address] Care Team Providers Care Senior Capital Markets Specialist Name Role Phone German Smith MD Primary Care Provider [phone] Source Comments [facility],non-owned Affiliates and Associated Physician Practices is amultiple site organization consisting of ambulatory clinics and hospital sitesin [place], [place], [place] and [place]. This disclosure is being madepursuant to the Care Everywhere program and may not contain all information available regarding this patient. Last updated 17.[facility] Encounters Date Type Department Care Team Description 06/20/2024 Lab Requisition [facility] - Pathology Lab [address] [place] [address] Chinmay Pederson MD Illness, unspecified 06/19/2024 Lab Requisition [facility] - Pathology Lab [address] [place] [address] Chinmay Pederson MD Other pancytopenia (HCC) from Last 3 Months Social History Tobacco [...] - 1-dose 75+ series) 2020 COVID-19 VACCINE (2023-2 5 season) 2023 DEPRESSION SCREENING 03/05/2024 MEDICARE [...] on patient's age to complete this topic Procedures Procedure Name Priority Date/Time Associated Diagnosis Comments BONE MARROW BIOPSY (STL) Routine 06/19/2024 10:00 AM CDT Illness, unspecified FLOW CYTOMETRY BONE MARROW Routine 06/19/2024 10:00 AM CDT Other pancytopenia (HCC) from Last 3 Months Results * FLOW CYTOMETRY BONE MARROW (06/19/2024 10:00 AM CDT) Case Report Flow Cytometry Case: [id number] Authorizing Provider: Chinmay Pederson Collected: 06/19/2024 10:00 AM MD Wilner Ordering Location: [facility] - Received: 06/19/2024 12:37 PM Pathology Lab Pathologist: Simi Silva MD Specimen: Bone Marrow 4:31 PM CDT [facility] Final Diagnosis Bone marrow, flow [...] marrow is required. 5 4:31 PM [facility] at 1631 CDT Flow Cytometry [...] cytometry specimen has been reviewed for quality improvement coordinator (rn) purposes. Please correlate with morphologic review of the bone marrow. 5 4:31 PM [facility] Flow Cytometry Results Differential Result Comment Flow Cell Count /uL 34,000 Total Viability % 80.0 Lymphocytes % 30 Dim CD45 Region % 11 Monocytes % 1 Granulocytes % 48 5 4:31 PM [facility] Reason for test Other pancytopenia (HCC) 284.19 5 4:31 PM [facility] Client Specimen ID # [id number] 5 4:31 PM [facility] Number of markers 13 were performed. A-2 Flow CD10 A-3 Flow CD13 A-5 Flow CD20 A-11 Flow CD25 A-12 Flow CD103 A-13 Flow CD11c A-1 Flow CD5 A-4 Flow CD19 A-6 Flow CD33 A-7 Flow CD34 A-8 Flow CD45 A-9 [place]+CD19+ A-10 Lambda+CD19+ 5 4:31 PM [facility] Pathologist Location at [facility] 5 4:31 PM [facility] Disclaimer Test performed at [facility], [address] [place] [address], [address]. *The established laboratory minimum viability is 70%. [...] qualified to perform high complexity clinical testing. 4:31 PM CDT [facility] Embedded Images 4:31 PM CDT [facility] Pathology/Cytolo gy BONE MARROW SPECIMEN / Unknown 06/19/2024 10:00 AM CDT 06/19/2024 12:37 PM CDT us Chinmay Pederson MD LAB - PATHOLOGY/CYT OLOGY ORDERABLES Final Result Performing Organization Address City/[facility] Phone Number [facility] [address] [phone] * BONE MARROW BIOPSY (STL) (06/19/2024 10:00 AM CDT) Case Report Bone Marrow Patholog y Report Case: [id number] Authorizing Provider: Chinmay Pederson Collected: 06/19/2024 10:00 AM MD Wilner Ordering Location: [facility] - Received: 06/20/2024 01:37 PM Pathology Lab Pathologist: Rick Yoo MD Specimens: A) - Bone Marrow Clot B) - Bone Marrow Core 06/24/2024 9:53 AM CDT [facility] Final Diagnosis Bone marrow, aspirate, clot section, and core biopsy: - 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 06/24/2024 9:53 AM [facility] Peripheral Smear Description Not received for review. 06/24/2024 9:53 AM [facility] Bone Marrow Aspirate Specimen quality: [...] No ring sideroblasts seen. 06/24/2024 9:53 AM [facility] Bone Marrow Core Biopsy [...] No ring sideroblasts seen. 06/24/2024 9:53 AM [facility] Flow Cytometry Summary Bone marrow, flow cytometric immunophenotyping ([id number]): - Monoclonal (kappa-restricted) B-cell population (17% of total events), nonspecific immunophenotype - No diagnostic immunophenotypic evidence of increased blasts or plasma cell neoplasm 06/24/2024 9:53 AM [facility] Clinical History History of splenomegaly and splenic infarction. Pancytopenia 06/24/2024 9:53 AM [facility] Materials Received Received are 18 slide(s) and 3 block(s) labeled [id number] along with a copy of the outside pathology report. [place] [address]. All original materials are returned to the referring institution, along with a copy of our final report. 06/24/2024 9:53 AM [facility] Pathologist Location at [facility] 06/24/2024 9:53 AM [facility] Disclaimer The performance characteristics of all immunohistochemical and indirect immunofluorescence stains (if any) cited in this report were determined by the Histopathology Laboratory of [facility]. Some of these tests were developed [...] attending (teaching) pathologist. 06/24/2024 9:53 AM CDT [facility] Embedded Images 06/24/2024 9:53 AM CDT [facility] Pathology/Cytology BONE MARROW SPECIMEN / Unknown 06/19/2024 10:00 AM CDT 06/20/2024 1:37 PM CDT Miscellaneous samples (specimen) BONE MARROW SPECIMEN / Unknown 06/19/2024 10:00 AM CDT 06/20/2024 1:37 PM CDT Chinmay Pederson MD LAB - PATHOLOGY/CYT OLOGY ORDERABLES Final Result [facility] [address] [facility] [place] [address], [facility] [phone] from Last 3 Months Insurance [facility] MEDICARE Care Teams Senior Capital Markets Specialist Relationship Specialty Start Date End Date German Smith MD [address] [place] [address] PCP - General 09/26/21
[2024-06-30 14:56] LABS: Alanine Aminotransferase 16 U/L (6-35); Albumin Level 3.6 g/dL (3.5-5.1); Alkaline Phosphatase 52 U/L (38-126); Anion Gap 4 mmol/L (4-12); Aspartate Amino Transferase 23 U/L (14-36); Bilirubin,Total 0.6 mg/dL (0.2-1.3); Blood Urea Nitrogen 19 mg/dL (7-17); Calcium 8.6 mg/dL (8.4-10.2); Carbon Dioxide 29 mmol/L (22-30); Chloride 105 mmol/L (98-107); Estimated Glomerular Filt Rate 59; Glucose 101 mg/dL (65-110); Potassium 4.4 mmol/L (3.4-5.0); Sodium 138 mmol/L (137-145)
[2024-06-30 15:17] LABS: Iron 74 ug/dL (37-170)
[2024-06-30 15:19] LABS: Immunoglobulin A 61 mg/dL (70-400); Immunoglobulin G 644 mg/dL (700-1600); Immunoglobulin M 98 mg/dL (40-230)
[2024-06-30 15:33] LABS: Percent Iron Saturation 27 % (20-50)
[2024-06-30 16:01] LABS: Folic Acid 8.2 ng/mL (2.76->20); Vitamin B12 > 1000.0 pg/mL (239-931)
== END 2024-06-30 11:17 | disposition home or self-care (01) ==
LOC: ANHLAB 11:17
PROVIDERS: PCP Family Medicine; Visit Provider Internal Medicine Hematology & Oncology
DX: C88.00 Waldenstrom macroglobulinemia not having achieved remission (principal)
CPT/HCPCS: 36415; 80053; 82607; 82746; 82784; 83540; 83550; 85025; 85810

== ENCOUNTER 2024-08-05 11:46 | Outpatient (CLI) | payer MEDICARE, SELFPAY ==
--- NOTE | ~2024-08-05 | XR_ITS ---
Right Knee Technique: AP, lateral, and sunrise views were obtained. Clinical History: Pain Findings: No fracture or dislocation is seen. Osseous alignment is anatomic. Joint spaces are preserv ed with minimal degenerative spurring. Small joint effusion is seen. Probable 7 mm loose body present posteriorly, possibly Allen's cyst. Impression: Minimal degenerative spurring. Small joint effusion. Probable small loose body posteriorly, as above. Reviewed, dictated and finalized at location . Impression: Minimal degenerative spurring. Small joint effusion. Probable small loose body posteriorly, as above.
== END 2024-08-05 11:47 | disposition home or self-care (01) ==
LOC: GOSHIMG 11:46
PROVIDERS: PCP Nurse Practitioner Family; Visit Provider Nurse Practitioner Family
DX: M25.461 Effusion, right knee (principal)
CPT/HCPCS: 73562

== ENCOUNTER 2024-10-21 12:20 | Outpatient (CLI) | payer MEDICARE, SELFPAY ==
--- OUTSIDE RECORDS SUMMARY | 2024-10-21 11:45 | XMS_ITS | Encounter Summary ---
Author Organization [facility] Address [address] [place] [address] Care Team Providers Care Drapery Estimator Name Role Phone Erik Hyatt MD Primary Care Provider Reason for Referral * Laboratory Services (Routine) - Open Specialty Diagnoses / Procedures Referred By Maritza t Referred To Contact Diagnoses B-cell lymphoma of spleen, unspecified B-cell lymphoma type (CMS/HCC) Procedures B-CELL LYMPHOMA, FISH Mauricio Dao MD [facility] [address] [address] Phone: tel: fax: Referral ID Status Reason Start Date Expiration Date Visits Re quested Visits Authorized [id number] Open 10/21/2024 11/21/2025 1 1 Encounter Details Date Type Department Care Team (Late st Contact Info) Description 10/21/2024 11:45 AM CDT Office Visit [facility] Oncology and Hematology - [place] [address] [place] [address] [address] [place] [address] Mauricio Dao MD [address] [facility] [address] [place] [address] B-cell lymphoma of spleen, unspecified B-cell lymphoma type (CMS/HCC) (Primary Dx) Social History Tobacco Use [...] Sign Reading Time Taken Comments Blood Pressure 111/81 10/21/2024 11:53 AM CDT Pulse 78 10/21/2024 11:53 AM CDT Temperature 37.2 C (98.9 F) 10/21/2024 11:53 AM CDT Respiratory Rate 15 10/21/2024 11:53 AM CDT Oxygen Saturation 93% 10/21/2024 11:53 AM CDT Inhaled Oxygen Concentration - - Weight 67.6 kg (149 lb) 10/21/2024 11:53 AM CDT Height - - Body Mass Index 24.05 11/02/2021 1:34 PM CDT documented in this encounter Plan of Treatment Upcoming Encounters Date Type Department Care Team (Late st Contact Info) Description 11/18/2024 4:30 PM CDT Telephone Check Up [facility] ([facility] Oncology and Hematology - [place] [address] [facility] [address] [place] [address] Mauricio Dao MD [address] [facility] [address] [place] [address] Scheduled Orders Name Type Priority Associated Diagnoses Orde r Schedule B-CELL LYMPHOMA, FISH Lab Routine B-cell lymphoma of spleen, unspecified B-cell lymphoma type (CMS/HCC) Expected: 10/21/2024, Expires: 10/21/2025 MISCELLANEOUS LAB TEST Lab Routine B-cell lymphoma of spleen, unspecified B-cell lymphoma type (CMS/HCC) Expected: 10/21/2024, Expires: 10/21/2025 documented as of this encounter Visit Diagnoses Diagnosis B-cell lymphoma of spleen, unspecified B-cell lymphoma type (CMS/HCC)- Primary documented in this encounter Care Teams Drapery Estimator Relationship Specialty Start Date End Date Erik Hyatt MD [address] [place] [address] PCP - General Family Practice 09/19/21 documented as of this encounter
--- OUTSIDE RECORDS SUMMARY | 2024-10-21 12:23 | XMS_ITS | Clinical Summary ---
Author Organization [facility] Address [address] [place] [address] Care Team Providers Care Client Service Executive Name Role Phone Erik Hyatt MD Primary [...] on file Legal Sex Female 1:00 PM DISTRICT RANGER Gender Identity Not on file Sexual Orientation [...] 11:07 AM CDT Height 167.6 cm (5' 6) 06/18/2024 11:07 AM CDT Body Mass Index 24.69 06/18/2024 11:07 AM CDT Plan of Treatment Health Maintenance Due Date Last Done Comments Depression Screening 1945 Fall Risk Assessment 1945 Hepatitis C Screening 1945 Osteoporosis Screening-Bone Density Scan 1945 DTaP/Tdap/Td Vaccine (1 - Tdap) 1956 Hepatitis B Screening 06/07/1963 Well Visit 65+ 2010 Pneumococcal vaccine 65+ (2 of 2 - PCV20 or PCV21) 12/12/2021 12/12/2020 Covid-19 Vaccine (6 - 2023-2 5 season) 2023 11/29/2022, 12/11/2021, 01/02/2021, Additional history exists Influenza Vaccine (#1) 2024 , 12/11/2021, 12/12/2020, Additional history exists Zoster Vaccine Completed 09/10/2022, 07/10/2022 Insurance [facility] Address: [facility] [address] [place] [address] [facility] MEDIC[facility] Address: [facility] [address] [place] [address] Care Teams Client Service Executive Relationship Specialty Start Date End Date Erik Hyatt MD [address] [facility] [address] [address] PCP - General Family Practice 09/11/23
--- OUTSIDE RECORDS SUMMARY | 2024-10-21 12:23 | XMS_ITS | Clinical Summary ---
Author Organization [facility] Address [address] [place] [address] Care Team Providers Care Wet And Dry Sugar Bin Operator Name Role Phone German Smith MD Primary Care Provider [phone] Source Comments [facility] Affiliates and Associated Physician Practices is amultiple site organization consisting of ambulatory clinics and hospital sitesin [place], [place], [place] and [place]. This disclosure is being madepursuant to the Care Everywhere program and may not contain all information available regarding this patient. Last updated 17.[facility] Social History Tobacco Use Types Packs/Day Years Used Date Smoking Tobacco: Never Assessed Comments Unknown Sex and Gender Information Value Date Recorded Sex Assigned at Not on file Legal Sex Female 7:55 AM CDT Gender Identity Not on file Sexual Orientation Not on file Plan of Treatment Health Maintenance Due Date Last Done Comments BONE DENSITY TESTING 1945 DTAP/TDAP/TD VACCINES (1 - Tdap) 1964 PNEUMOCOCCAL VACCINE 50+ (1 of 1 - PCV) 06/07/1995 ZOSTER VACCINE (1 of 2) 06/07/1995 Respiratory Syncytial Virus (RSV) Vaccine Pt: or over 60 yrs (1 - 1-dose 75+ series) 2020 COVID-19 VACCINE ( - 2023-2 5 season) 2023 DEPRESSION SCREENING 03/05/2024 MEDICARE AWV CALENDAR YEAR 2024 INFLUENZA VACCINE (#1) 2024 HEPATITIS B VACCINE Aged Out No [...] patient's age to complete this topic Insurance [facility] MEDICARE Care Teams Wet And Dry Sugar Bin Operator Relationship Specialty Start Date End Date German Smith MD [address] [place] [address] PCP - General 09/26/21
--- OUTSIDE RECORDS SUMMARY | 2024-10-21 12:23 | XMS_ITS | Encounter Summary ---
Author Organization [facility] Address [address] [place] [address] Care Team Providers Care Career Technical Supervisor Name Role Phone German Smith MD Primary Care Provider [phone] Encounter Details Date Type Department Care Team (Late st Contact Info) Description 06/20/2024 Lab Requisition [facility] - Pathology Lab [address] [place] [address] Chinmay Pederosn MD [address] [facility] [address] [place] [address] Illness, unspecified Social History Tobacco Use [...] Report Bone Marrow Patholog y Report Case: [id number] Authorizing Provider: Chinmay Pederson Collected: 06/19/2024 10:00 AM MD Wilner Ordering Location: [facility] - Received: 06/20/2024 01:37 PM Pathology Lab Pathologist: Rick Yoo MD Specimens: A) - Bone Marrow Clot B) - Bone Marrow Core 06/24/2024 9:53 AM [facility] Final Diagnosis Bone marrow, aspirate, clot section, and core biopsy: - Involved by mature B-cell lymphoma (approximately 10%) - Hypercellular bone marrow for age (40% cellularity) - Trilineage hematopoiesis with no significant dyspoiesis - Decreased iron storage 06/24/2024 9:53 AM [facility] at [address] [facility] AP Comment The bone marrow is [...] and imaging correlation recommended. 06/24/2024 9:53 AM [facility] Peripheral Smear Description Not received for review. 06/24/2024 9:53 AM [facility] Bone Marrow Aspirate Specimen [...] No ring sideroblasts seen. 06/24/2024 9:53 AM [facility] Bone Marrow Core Biopsy [...] No ring sideroblasts seen. 06/24/2024 9:53 AM [facility] Flow Cytometry Summary Bone marrow, flow cytometric immunophenotyping ([id number]): - Monoclonal (kappa-restricted) B-cell population (17% of total events), nonspecific immunophenotype - No diagnostic immunophenotypic evidence of increased blasts or plasma cell neoplasm 06/24/2024 9:53 AM [facility] Clinical History History of splenomegaly and splenic infarction. Pancytopenia 06/24/2024 9:53 AM [facility] Materials Received Received are 18 slide(s) and 3 block(s) labeled [id number] along with a copy of the outside pathology report. [place] [address]. All original materials are returned to the referring institution, along with a copy of our final report. 06/24/2024 9:53 AM [facility] Pathologist Location at [facility] 06/24/2024 9:53 AM [facility] Disclaimer The performance characteristics of all immunohistochemical and indirect immunofluorescence stains (if any) cited in this report were determined by the Histopathology Laboratory of [facility]. Some of these tests were developed [...] attending (teaching) pathologist. 06/24/2024 9:53 AM CDT [facility] Embedded Images 06/24/2024 9:53 AM CDT [facility] Pathology/Cytology BONE MARROW SPECIMEN / Unknown 06/19/2024 10:00 AM CDT 06/20/2024 1:37 PM CDT Miscellaneous samples (specimen) BONE MARROW SPECIMEN / Unknown 06/19/2024 10:00 AM CDT 06/20/2024 1:37 PM CDT Chinmay Pederson MD LAB - PATHOLOGY/CYT OLOGY ORDERABLES Final Result Performing Organization Address City/State/[facility] Co de Phone Number [facility] [address] [phone] documented in this encounter Visit Diagnoses Diagnosis Illness, unspecified documented in this encounter Care Teams Career Technical Supervisor Relationship Specialty Start Date End Date German Smith MD [address] [place] [address] PCP - General 09/26/21 documented as of this encounter
--- OUTSIDE RECORDS SUMMARY | 2024-10-21 12:23 | XMS_ITS | Encounter Summary ---
Author Organization [facility] Address [address] [place] [address] Care Team Providers Care Owner Manager Name Role Phone German Smith MD Primary Care Provider Encounter Details Date Type Department Care Team (Late st Contact Info) Description 10/25/2021 Lab Requisition [facility] Care Pathology Lab [address] [place] [address] Tha Horton MD [facility] [address] [address] Other pancytopenia Social History Tobacco [...] AM CDT) Case Report Flow Cytometry Case: [id number] Authorizing Provider: Tha Horton MD Collected: 10/25/2021 09:30 AM Ordering Location: [facility] Care Pathology Lab Received: 10/25/2021 04:47 PM Pathologist: Flora Scott Mai, DO Specimen: Bone Marrow, LEFT 10/25/2021 6:40 PM CDT [facility] Final Diagnosis Bone marrow, flow cytometric immunophenotypic analysis: - Immature B-cell population (5.6% of events) with features of hematogones - No clonal B-cell population or increase in blasts - See interpretation 10/25/2021 6:40 PM [facility] at 1840 CDT Flow Cytometry Interpretation The bone marrow specimen [...] flow cytometry specimen is reviewed for quality analyst/technical writer purposes. The sample is spiculated and cellular. [...] lar studies is required. 10/25/2021 6:40 PM [facility] Flow Cytometry Results Differential Result Comment Flow Cell Count /uL 69,600 Total Viability % 94.0 Lymphocytes % 28 Dim CD45 Region % 16 Monocytes % 24 Granulocytes % 32 10/25/2021 6:40 PM [facility] Reason for test Other pancytopenia 284.19 10/25/2021 6:40 PM [facility] Client Specimen ID # [id number] 10/25/2021 6:40 PM [facility] Number of markers 10 were performed. A-2 Flow CD10 A-3 Flow CD13 A-5 Flow CD20 A-1 Flow CD5 A-4 Flow CD19 A-6 Flow CD33 A-7 Flow CD34 A-8 Flow CD45 A-9 [place]+CD19+ A-10 Lambda+CD19+ 10/25/2021 6:40 PM [facility] Disclaimer Test performed at [facility], [address] [place], [place], [address]. *The established laboratory minimum viability is 70%. [...] complexity clinical testing. 10/25/2021 6:40 PM CDT [facility] PATH[facility] Embedded Images 6:40 PM CDT [facility] Pathology/Cytolo gy BONE MARROW SPECIMEN / Unknown 10/25/2021 9:30 AM CDT 10/25/2021 4:47 PM CDT Tha Horton MD LAB - PATHOLOGY/CYTOLOGY ORDERAB LES Final Result Performing Organization Address City/State/[facility] Co de Phone Number [facility] [address] [facility] [place]. [address] [phone] documented in this encounter Visit Diagnoses Diagnosis Other pancytopenia (HCC) Other pancytopenia documented in this encounter Care Teams Owner Manager Relationship Specialty Start Date End Date German Smith MD [address] [place] [address] PCP - General 09/26/21 documented as of this encounter
--- OUTSIDE RECORDS SUMMARY | 2024-10-21 12:23 | XMS_ITS | Encounter Summary ---
Author Organization [facility] Address [address] [facility] [place] [address] Care Team Providers Care Blending Technician Name Role Phone German Smith MD Primary Care Provider [phone] Encounter Details Date Type Department Care Team (Late st Contact Info) Description 06/19/2024 Lab Requisition [facility] - Pathology Lab [address] [place] [address] Chinmay Pederson MD [address] [facility] [address] [place] [address] Other pancytopenia (HCC) Social History Tobacco [...] AM CDT) Case Report Flow Cytometry Case: [id number] Authorizing Provider: Chinmay Pederson Collected: 06/19/2024 10:00 AM MD Wilner Ordering Location: [facility] Physician [facility] - Received: 06/19/2024 12:37 PM Pathology Lab Pathologist: Simi Silva MD Specimen: Bone Marrow 4:31 PM CDT [facility] Final Diagnosis Bone marrow, flow [...] bone marrow is required. 5 4:31 PM [facility] PATH[facility] at 1631 CDT Flow [...] flow cytometry specimen has been reviewed for air quality instrument specialist purposes. Please correlate with morphologic review of the bone marrow. 5 4:31 PM [facility] Flow Cytometry Results Differential Result Comment Flow Cell Count /uL 34,000 Total Viability % 80.0 Lymphocytes % 30 Dim CD45 Region % 11 Monocytes % 1 Granulocytes % 48 5 4:31 PM [facility] Reason for test Other pancytopenia (HCC) 284.19 5 4:31 PM [facility] Client Specimen ID # [id number] 5 4:31 PM [facility] Number of markers 13 were performed. A-2 Flow CD10 A-3 Flow CD13 A-5 Flow CD20 A-11 Flow CD25 A-12 Flow CD103 A-13 Flow CD11c A-1 Flow CD5 A-4 Flow CD19 A-6 Flow CD33 A-7 Flow CD34 A-8 Flow CD45 A-9 [place]+CD19+ A-10 Lambda+CD19+ 5 4:31 PM CDT [facility] PATH[facility] Pathologist Location at [facility] [address] 5 4:31 PM CDT [facility] PATH[facility] LAB Disclaimer Test performed at [facility], [address] [place], [place], [address]. *The established laboratory minimum viability is 70%. [...] complexity clinical testing. 5 4:31 PM CDT [facility] Embedded Images 5 4:31 PM CDT [facility] Pathology/Cytolo gy BONE MARROW SPECIMEN / Unknown 06/19/2024 10:00 AM CDT 06/19/2024 12:37 PM CDT Chinmay Pederson MD LAB - PATHOLOGY/CYT OLOGY ORDERABLES Final Result [facility] [address] [place] [address]. [address] [phone] documented in this encounter Visit Diagnoses Diagnosis Other pancytopenia (HCC) Other pancytopenia documented in this encounter Care Teams Blending Technician Relationship Specialty Start Date End Date German Smith MD [address] [place] [address] PCP - General 09/26/21 documented as of this encounter
--- OUTSIDE RECORDS SUMMARY | 2024-10-21 12:23 | XMS_ITS | Clinical Summary ---
Author Organization [facility] Address [address] [place] [address] Care Team Providers Care Kennel Hand Name Role Phone Erik Hyatt MD Primary [...] Encounters Date Type Department Care Team Description 10/21/2024 11:45 AM CDT Office Visit [facility] Oncology and Hematology - [place]ett [address] [place] [address] Mauricio Dao MD B-cell lymphoma of spleen, unspecified B-cell lymphoma type (CMS/HCC) (Primary Dx) 10/08/2024 External Device Data STL ABSTRACTION Provider, Abstract 09/17/2024 External Device Data STL ABSTRACTION Provider, Abstract 09/17/2024 External Device Data STL ABSTRACTION Provider, Abstract 09/17/2024 External Device Data STL ABSTRACTION Provider, Abstract 09/16/2024 External Device Data STL ABSTRACTION Provider, Abstract 08/20/2024 External Device Data STL ABSTRACTION Provider, Abstract 08/19/2024 External Device Data STL ABSTRACTION Provider, Abstract 07/24/2024 External Device Data STL ABSTRACTION Provider, Abstract 07/23/2024 External Device Data STL ABSTRACTION Provider, Abstract 07/22/2024 External Device Data STL ABSTRACTION Provider, Abstract [...] (149 lb) 10/21/2024 11:53 AM CDT Height 167.6 cm (5' 6) 11/02/2021 1:34 PM CDT Body Mass Index 24.05 11/02/2021 1:34 PM CDT Plan of Treatment Upcoming Encounters Date Type Department Care Team (Late st Contact Info) Description 11/18/2024 4:30 PM CDT Telephone Check Up [facility] Oncology and Hematology - [place] [address] [facility] [address] [place] [address] Mauricio Dao MD [address] [facility] [address] [place] [address] Health Maintenance Due Date Last Done Comments DTAP/TDAP/TD VACCINES (1 - Tdap) 1964 PNEUMOCOCCAL VACCINE 50+ YEARS (1 of 1 - PCV) 06/06/18 96 ZOSTER VACCINE (1 of 2) 06/07/1995 OSTEOPOROSIS SCREENING 2010 RSV VACCINE (60+ or ) (1 - 1-dose 75+ series) 2020 Medicare Advantage ([place]) Prev entative Visit/Annual Wellness Visit 03/05/2024 INFLUENZA VACCINE (#1) 2024 COLORECTAL SCREENING Discontinued 09/23/2021 Colorectal Cancer Screening Discontinued FIT-DNA Q 3 years Discontinued FIT/FOBT Q 1 year Discontinued Flex Sig/CT Colonography Q 5 years Discontinued Procedures Procedure Name Priority Date/Time Associated Diagnosis Comments COLONOSCOPY REPORT Routine 09/23/2021 from Last 3 Months or Most Recently Relevant to Health Maintenance Results * COLONOSCOPY REPORT (09/23/2021) us Abstract Provider GI PROCEDURE ORDERABLES Final Result from Last 3 Months or Most Recently Relevant to Health Maintenance Insurance [facility] [id number] Care Teams Kennel Hand Relationship Specialty Start Date End Date Erik Hyatt MD [address] [place] [address] PCP - General Family Practice 09/19/21
--- OUTSIDE RECORDS SUMMARY | 2024-10-21 12:23 | XMS_ITS | Encounter Summary ---
Author Organization [facility] Address [address] [address] Care Team Providers Care Fork Assembler Name Role Phone German Smith MD Primary Care Provider [phone] Encounter Details Date Type Department Care Team (Late st Contact Info) Description 10/27/2021 Lab Requisition [facility] Pathology Lab [address] [place] [address] Tha oHrton MD [facility] [address] [address] Illness, unspecified Social History Tobacco [...] Report Bone Marrow Patholog y Report Case: [id number] Authorizing Provider: Tha Horton MD Collected: 10/25/2021 09:52 AM Ordering Location: [facility] Pathology Lab Received: 10/27/2021 07:52 AM Pathologist: Flora Scott Mai, DO Specimens: A) - Bone Marrow Clot B) - Bone Marrow Core 10/28/2021 1:49 PM [facility] Final Diagnosis Bone marrow, aspirate, clot section, and core biopsy: - Normocellular marrow with maturing trilineage hematopoiesis - Lymphoid aggregates with no diagnostic evidence of clonal B-cell or aberrant T-cell population - See description 10/28/2021 1:49 PM [facility] at 1349 CDT AP Comment The bone marrow specimen is normocellular for age with maturing trilineage hematopoiesis and no diagnostic evidence of lymphoma, a high-grade myeloid neoplasm, or significant dyspoiesis. Correlation with clinical findings and relevant cytogenetic/molecular testing is required. Case reviewed in intradepartmental consensus. 10/28/2021 1:49 PM [facility] Bone Marrow Aspirate Differential [...] however, sample is suboptimal 10/28/2021 1:49 PM [facility] Bone Marrow Core Biopsy [...] performed on the core biopsy in the [facility] Department of Pathology, with appropriately reactive controls, [...] blasts (less than 2%) 10/28/2021 1:49 PM [facility] Flow Cytometry Summary [id number]: Immature B-cell population (5.6% of events) with features of hematogones. No clonal B-cell population or increase in blasts. 10/28/2021 1:49 PM [facility] Clinical History Pancytopenia. Splenomegaly (17.2 cm). History of cervical cancer. History of vitamin B12 deficiency. 10/28/2021 1:49 PM [facility] Materials Received Received are 19 slide(s) and 3 blocks (A1, A2, B1) labeled [id number] along with a copy of the outside pathology report. [place] [address]. All original materials are returned to the referring institution, along with a copy of our final report. 10/28/2021 1:49 PM [facility] Disclaimer The performance characteristics of all immunohistochemical and indirect immunofluorescence stains (if any) cited in this report were determined by the Histopathology Laboratory of [facility]. Some of these tests [...] attending (teaching) pathologist. 10/28/2021 1:49 PM CDT [facility] Embedded Images 10/28/2021 1:49 PM CDT [facility] Pathology/Cytology BONE MARROW SPECIMEN / Unknown 10/25/2021 9:52 AM CDT 10/27/2021 7:52 AM CDT Miscellaneous samples (specimen) BONE MARROW SPECIMEN / Unknown 10/25/2021 9:52 AM CDT 10/27/2021 7:52 AM CDT us Tha Horton MD LAB - PATHOLOGY/CYTOLOGY ORDERAB LES Final Result Performing Organization Address City/State/[facility] Co de Phone Number [facility] [address] [phone] documented in this encounter Visit Diagnoses Diagnosis Illness, unspecified documented in this encounter Care Teams Fork Assembler Relationship Specialty Start Date End Date German Smith MD [address] [place] [address] PCP - General 09/26/21 documented as of this encounter
== END 2024-10-21 12:21 | disposition home or self-care (01) ==
LOC: ANHLAB 12:21
PROVIDERS: PCP Nurse Practitioner Family; Visit Provider Internal Medicine Hematology & Oncology
DX: C85.17 Unspecified B-cell lymphoma, spleen (principal)
CPT/HCPCS: 88271; 88275